=== PATIENT | male | born 1985 | race Caucasian/White ===

== ENCOUNTER 2018-04-19 14:37 | Inpatient (IN) ==
[2018-04-19] MEDS ORDERED: Sod Chloride 0.9% Inj 1,000 ML IV.SIG ONE ×2 (15:53→16:14)
--- NOTE | 2018-04-19 15:58 | ED ---
HPI General Chief complaint: Medical Clearance Stated complaint: Medical Time Seen by Provider: 04/19/18 15:22 Source: old records reviewed Mode of arrival: EMS Limitations: no limitations History of Present Illness HPI narrative: The patient is 32-year-old male that was transferred from retirement here. Important to note that this patient was discharged from our facility 2 days ago and was here under an alias. The alias is Renea Lawson with . The patient does not know why he is here. He does have a right PICC line and a prescription for Cefazolin 2000 mg IV every 6 hours for the next 35 days for infectious endocarditis. Reports that he was given IV Antibiotics in [facility]. Patient has no access to outpatient care. "After reviewing previous records the patient was found to have infective endocarditis and bacteremia secondary to MSSA with elevated troponin and atypical chest pain and suggesting findings of septic emboli in the lungs. He had a CT of the lumbar spine without was suspicious for discitis and ID start him on cefepime. He had a left knee arthrotomy with irrigation and debridement of septic arthritis at which point he was continued on Ancef and Diflucan. He had an elevated troponin secondary to his endocarditis and septic emboli. Elevated LFTs and history of IVDU and had a CT of the pelvis and abdomen on 03/29 that showed areas of low density in the spleen that may have represented lacerations or infarcts. Had an ID consultation and there is extensive documentation in record. Patient denies any fever or chills at this time has tenderness palpation over the left lower leg feels weak and fatigued and has not had anything to eat for several hours. Related Data Home Medications Medication Instructions Recorded Confirmed cefazolin 2,000 mg IV Q6HR 04/19/18 04/19/18 cyclobenzaprine 10 mg PO BID 04/19/18 04/19/18 ferrous sulfate 325 mg PO DAILY 04/19/18 04/19/18 Allergies Allergy/AdvReac Type Severity Reaction Status Date / Time No Known Allergies Allergy Unverified 04/19/18 15:29 Review of Systems ROS: all other systems reviewed are negative Constitutional Reports fatigue, Reports malaise and Reports poor appetite PMFSH Medical History Medical History Bacteremia (Acute) Endocarditis (Acute) IV drug abuse (Acute) Pulmonary embolism (Acute) Septic embolism (Acute) Surgical History Surgical History History of atherectomy (Acute) History of foot surgery (Acute) Family History Family History Other No significant family history Social History Social History Substance History: Active Abuse Second Hand Smoke Exposure: Yes Smoking Status: Current every day smoker Tobacco Type: Cigarettes How Often Do You Have a Drink Containing Alcohol: Never Recent Travel in [facility] within the Last 8 Weeks: No Recent Out of Country Travel within the Last 8 Weeks: No Substance Abuse Detail Opiates: Substance Use Status: Active Route Used Substance Abuse: Intravenously Immunization History Tetanus Immunization: Unsure Hx Influenza Vaccine This Season: No Exam Narrative Exam Narrative: GENERAL: Alert and oriented in no distress appears cachectic SKIN: Focused skin assessment warm/dry. Incision on left lateral knee area appears clean dry and intact. Xeroform was in place and was changed. HEAD: Atraumatic. Normocephalic. Bitemporal wasting EYES: Pupils equal and round. No scleral icterus. No injection or drainage. ENT: No nasal bleeding or discharge. Mucous membranes pink and moist. NECK: Trachea midline. No JVD. CARDIOVASCULAR: Tachycardia. No murmur appreciated. RESPIRATORY: No accessory muscle use. Clear to auscultation. Breath sounds equal bilaterally. GASTROINTESTINAL: Abdomen soft, non-tender, nondistended. Hepatic and splenic margins not palpable. MUSCULOSKELETAL: No obvious deformities. No clubbing. No cyanosis. No edema. NEUROLOGICAL: Awake and alert. No obvious cranial nerve deficits. Motor grossly within normal limits. Normal speech. PSYCHIATRIC: Appropriate mood and affect; insight and judgment normal. Course Hospital Course: pt with elevated WBC 18K from 14K from yesterday. We restarted his Cefipime IV here in the ED and admitted for continuation as well as possible placement. Not appearing toxic. Tachycardia did improve markedly with fluids. Initial Documented Vital Signs Temperature 97.7 F 04/19/18 15:29 Pulse Rate 112 H 04/19/18 15:29 Respiratory Rate 19 04/19/18 15:29 Blood Pressure 125/85 04/19/18 15:29 Pulse Oximetry 94 L 04/19/18 15:29 Last Documented Vital Signs Temperature 98.5 F 04/20/18 04:00 Pulse Rate 109 H 04/20/18 04:00 Respiratory Rate 21 04/20/18 04:00 Blood Pressure 134/91 H 04/20/18 04:00 Pulse Oximetry 98 04/20/18 04:00 Medical Decision Making MDM Narrative Medical Screen Exam Complete: Yes Emergency Medical Condition: Yes Lab Data Lab results reviewed: Yes I reviewed the patient's lab results. Result diagrams: 04/19/18 16:00 04/19/18 16:00 Lab Results 04/19/18 04/19/18 04/19/18 Range/Units 16:00 16:00 16:00 WBC 18.3 H (4.0-11.0) th/mm3 RBC 3.01 L (4.50-5.90) mil/mm3 Hgb 7.9 L (13.0-17.0) gm/dL Hct 24.3 L (39.0-51.0) % MCV 80.9 (80.0-100.0) fL MCH 26.3 L (27.0-34.0) pg MCHC 32.5 (32.0-36.0) % RDW 16.0 (11.6-17.2) % Plt Count 389 (150-450) th/mm3 MPV 6.2 L (7.0-11.0) fL Neut % (Auto) 84.1 H (16.0-70.0) % Lymph % (Auto) 10.1 (9.0-44.0) % [place] % (Auto) 5.1 (0.0-8.0) % Eos % (Auto) 0.4 (0.0-4.0) % Baso % (Auto) 0.3 (0.0-2.0) % Neut # (Auto) 15.4 H (1.8-7.7) th/mm3 Lymph # (Auto) 1.9 (1.0-4.8) th/mm3 [place] # (Auto) 0.9 (0.0-0.9) th/mm3 Eos # (Auto) 0.1 (0.0-0.4) th/mm3 Baso # (Auto) 0.1 (0.0-0.2) th/mm3 WBC Differential . Differential Comment Auto diff final PT 11.7 H (9.8-11.6) sec INR 1.2 Ratio APTT 25.7 (24.3-30.1) sec Sodium 132 L (136-145) meq/L Potassium 4.0 (3.5-5.1) meq/L Chloride 98 (98-107) meq/L Carbon Dioxide 26.1 (21.0-32.0) meq/L Anion Gap 8 (5-15) meq/L BUN 23 H (7-18) mg/dL Creatinine 0.86 (0.60-1.30) mg/dL Estimated GFR Greater than 89 (>89) mL/min Random Glucose 86 (74-106) mg/dL Lactic Acid (0.4-2.0) mmol/L Calcium 8.5 (8.5-10.1) mg/dL Troponin I (0.02-0.05) ng/mL 04/19/18 04/19/18 Range/Units 16:00 16:36 WBC (4.0-11.0) th/mm3 RBC (4.50-5.90) mil/mm3 Hgb (13.0-17.0) gm/dL Hct (39.0-51.0) % MCV (80.0-100.0) fL MCH (27.0-34.0) pg MCHC (32.0-36.0) % RDW (11.6-17.2) % Plt Count (150-450) th/mm3 MPV (7.0-11.0) fL Neut % (Auto) (16.0-70.0) % Lymph % (Auto) (9.0-44.0) % [place] % (Auto) (0.0-8.0) % Eos % (Auto) (0.0-4.0) % Baso % (Auto) (0.0-2.0) % Neut # (Auto) (1.8-7.7) th/mm3 Lymph # (Auto) (1.0-4.8) th/mm3 [place] # (Auto) (0.0-0.9) th/mm3 Eos # (Auto) (0.0-0.4) th/mm3 Baso # (Auto) (0.0-0.2) th/mm3 WBC Differential Differential Comment PT (9.8-11.6) sec INR Ratio APTT (24.3-30.1) sec Sodium (136-145) meq/L Potassium (3.5-5.1) meq/L Chloride (98-107) meq/L Carbon Dioxide (21.0-32.0) meq/L Anion Gap (5-15) meq/L BUN (7-18) mg/dL Creatinine (0.60-1.30) mg/dL Estimated GFR (>89) mL/min Random Glucose (74-106) mg/dL Lactic Acid 1.1 (0.4-2.0) mmol/L Calcium (8.5-10.1) mg/dL Troponin I 0.03 (0.02-0.05) ng/mL ECG Data EKG Prior to Arrival: No Attestation: I personally reviewed and interpreted this ECG as follows: Prior ECG tracings: available for review Interpretation: Sinus tachycardia with a heart rate of 110. Short [place] interval. Nonspecific ST-T wave abnormalities. 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
[2018-04-19 16:42] LABS: Baso # (Auto) 0.1 th/mm3 (0.0-0.2); Baso % (Auto) 0.3 % (0.0-2.0); Eos # (Auto) 0.1 th/mm3 (0.0-0.4); Eos % (Auto) 0.4 % (0.0-4.0); Hematocrit 24.3 % (39.0-51.0); Hemoglobin 7.9 gm/dL (13.0-17.0); Lymph # (Auto) 1.9 th/mm3 (1.0-4.8); Lymph % (Auto) 10.1 % (9.0-44.0); Mean Corpuscular HGB Conc 32.5 % (32.0-36.0); Mean Corpuscular Hemoglobin 26.3 pg (27.0-34.0); Mean Corpuscular Volume 80.9 fL (80.0-100.0); Mean Platelet Volume 6.2 fL (7.0-11.0); Mono # (Auto) 0.9 th/mm3 (0.0-0.9); Mono % (Auto) 5.1 % (0.0-8.0); Neut # (Auto) 15.4 th/mm3 (1.8-7.7); Neut % (Auto) 84.1 % (16.0-70.0); Platelet Count 389 th/mm3 (150-450); Red Blood Count 3.01 mil/mm3 (4.50-5.90); White Blood Count 18.3 th/mm3 (4.0-11.0)
[2018-04-19 16:49] LABS: Activated Partial Thrombo Time 25.7 sec (24.3-30.1); Anion Gap 8 meq/L (5-15); Blood Urea Nitrogen 23 mg/dL (7-18); Calcium 8.5 mg/dL (8.5-10.1); Carbon Dioxide 26.1 meq/L (21.0-32.0); Chloride 98 meq/L (98-107); Glomerular Filtration Rate Greater Than 89 mL/min (>89); Glucose,Random 86 mg/dL (74-106); INR 1.2 Ratio; Prothrombin Time 11.7 sec (9.8-11.6); Sodium 132 meq/L (136-145)
[2018-04-19] MEDS ORDERED: ceFAZolin 2 GM Premix Inj 2 GM/50 ML PIGGYBACK IV.SIG ONE (17:48)
[2018-04-19] MEDS ORDERED: ceFAZolin Inj 2,000 MG in Sodium Chlor 0.9% Inj 100 ML IV.SIG ONE (19:00)
--- NOTE | 2018-04-19 22:32 | P.HPIM ---
History of Present Illness Service: [facility] Hospitalist . Primary Care Physician: UNKNOWN Chief Complaint: endocarditis History of Present Illness: Mr. Garcia is 32-year-old male that was transferred from halfway to the ED with recent admission 03/29/18 - 04/17/18 for infective endocarditis, bacteremia secondary to MSSA, septic emboli in lungs, and splenic infarcts . The patient was here under an alias: Renea Lawson with . He had a left knee arthrotomy with irrigation and debridement of septic arthritis during prior hospitalization. Patient denies any fever or chills at the time of my visit but complains of pain over left knee and ankle. Pain is worse with movement and unrelieved by Tramadol given to the patient at the counts include 234 beds at the [facility]. He also reports chronic chest pain that has not changed since last admission. He is admitted at this time for sepsis with known source of infection - endocarditis and worsening leukocytosis with left shift and tachycardia. The patient has no access to primary care as he has just been released from halfway. Inpatient Certification: I certify that the inpatient services were ordered in accordance with Medicare regulations governing the order. This includes certification that hospital inpatient services are reasonable and necessary and in the case of services not specified as inpatient-only under 42 CFR 419.22(n), that they are appropriately provided as inpatient services in accordance to with the 2-midnight benchmark under 43 CFR 412.3(e) Estimated Total Length of Stay (Days): 2 Plans for Post Hospital Care: Not yet determined Review of Systems All other systems reviewed negative except as stated in HPI [facility] - History History Provided By: Patient - Medical History Medical History: Medical History (Last Updated 04/20/18 @ 01:06 by ELAINE Rosales) Bacteremia Endocarditis IV drug abuse Pulmonary embolism Septic embolism - Surgical History Surgical History: Surgical History (Last Updated 04/20/18 @ 01:08 by ELAINE Rosales) History of atherectomy History of foot surgery - Family History Family History: Family History (Last Updated 04/20/18 @ 01:15 by ELAINE Rosales) Other No significant family history - Tobacco History Second Hand Smoke Exposure: Yes Tobacco Use In Past 30 Days: Yes Smoking Status: Current every day smoker Tobacco Type: Cigarettes - Alcohol History How Often Do You Have a Drink Containing Alcohol: Never - Substance Use History Substance History: Active Abuse - Substance Use Type Opiates Status: Active Route Used: Intravenously - Travel History Recent Travel in the [place] Within the Last 8 Weeks: No Recent Travel Out of the Country Within the Last 8 Weeks: No - Immunization History Tetanus Immunization: Unsure Hx Influenza Vaccine This Season: No Medications and Allergies Active Medications: Active Medications Hydrocodone Bitart/Acetaminophen ([place] 5/325) 1 tab PO ONCE ONE Stop: 04/19/18 22:30 Cyclobenzaprine HCl (Flexeril) 10 mg PO BID [facility] Ferrous Sulfate (Ferosul) 325 mg PO DAILY [facility]ON[facility] Cefazolin Sodium 2,000 mg/ (Sodium Chloride) 100 mls @ 200 mls/hr IV.SIG Q6H [facility] Sodium Chloride (Ns Flush) 2 ml IV.FLUSH BID LEONIDES Sodium Chloride (Ns Flush) 2 ml IV.FLUSH PRN PRN PRN Reason: FLUSH AFTER USING IV ACCESS Allergies Allergy/AdvReac Type Severity Reaction Status Date / Time No Known Allergies Allergy Unverified 04/19/18 15:29 Home Medications Medication Instructions Recorded Confirmed Type cefazolin 2,000 mg IV Q6HR 04/19/18 04/19/18 History cyclobenzaprine 10 mg PO BID 04/19/18 04/19/18 History ferrous sulfate 325 mg PO DAILY 04/19/18 04/19/18 History Exam Vital signs: Vital Signs 04/19/18 15:29 04/19/18 19:57 Temperature 97.7 F 99.1 F Pulse Rate 112 H 121 H Respiratory Rate 19 19 Blood Pressure 125/85 127/79 Pulse Oximetry 94 L 99 Intake & Output 04/19/18 04/19/18 04/20/18 06:59 18:59 06:59 Intake Total 1999 Balance 1999 Weight 52.163 kg Intake: IV 1999 NS Inj 1,000 ML @ Wide Open IV. 1999 SIG BOLUS ONE Rx#:[id number] Narrative: GENERAL: This is a frail, weak, chronically ill-appearing male patient, complaining of left leg pain. SKIN: No rashes, ecchymoses or lesions. Cool and dry. HEAD: Atraumatic. Normocephalic. EYES: No scleral icterus. No injection or drainage. ENT: Nose without bleeding, purulent drainage. NECK: Trachea midline. No JVD. CARDIOVASCULAR: Regular rate and rhythm without murmurs, gallops, or rubs. RESPIRATORY: Clear to auscultation. Breath sounds equal bilaterally. No wheezes , rales, or rhonchi. GASTROINTESTINAL: Abdomen soft, non-tender, nondistended. No guarding. MUSCULOSKELETAL: Left knee tender to palpation, left ankle with 2+ pitting edema. NEUROLOGICAL: Awake and alert. Motor and sensory grossly within normal limits. Normal speech. . Results - Labs CBC & Chem 7: 04/19/18 16:00 04/19/18 16:00 Labs: Short CBC 04/19/18 Range/Units 16:00 WBC 18.3 H (4.0-11.0) th/mm3 Hgb 7.9 L (13.0-17.0) gm/dL Hct 24.3 L (39.0-51.0) % Plt Count 389 (150-450) th/mm3 BMP 04/19/18 16:00 Sodium 132 L Potassium 4.0 Chloride 98 Carbon Dioxide 26.1 BUN 23 H Creatinine 0.86 Calcium 8.5 Cardiac Enzymes 04/19/18 Range/Units 16:36 Troponin I 0.03 (0.02-0.05) ng/mL Caprini VTE Risk Assessment Caprini VTE Risk Assessment: Moderate/High Risk (score >= 2) Caprini Risk Assessment Model: Point Value = 1 Point Value = 2 Point Value = 3 Point Value = 5 Age 41-60 Minor surgery BMI > 25 kg/m2 Swollen legs Varicose veins or History of unexplained or recurrent spontaneous Oral contraceptives or hormone replacement Sepsis (< 1 month) Serious lung disease, including pneumonia (< 1 month) Abnormal pulmonary function Acute myocardial infarction Congestive heart failure (< 1 month) History of inflammatory bowel disease Medical patient at bed rest Age 61-74 Arthroscopic surgery Major open surgery (> 45 min) Laparoscopic surgery (> 45 min) Malignancy Confined to bed (> 72 hours) Immobilizing plaster cast Central venous access Age >= 75 History of VTE Family history of VTE Factor V Leiden Prothrombin [id number] Lupus anticoagulant Anticardiolipin antibodies Elevated serum homocysteine Heparin-induced thrombocytopenia Other congenital or acquired thrombophilia Stroke (< 1 month) Elective arthroplasty Hip, pelvis, or leg fracture Acute spinal cord injury (< 1 month) Prophylaxis Regimen: Total Risk Factor Score Risk Level Prophylaxis Regimen 0-1 Low Early ambulation 2 Moderate Order ONE of the following: *Sequential Compression Device (SCD) *Heparin 5000 units SQ BID 3-4 Higher Order ONE of the following medications: *Heparin 5000 units SQ TID *Enoxaparin/Lovenox 40 mg SQ daily (WT < 150 kg, CrCl > 30 mL/min) *Enoxaparin/Lovenox 30 mg SQ daily (WT < 150 kg, CrCl > 10-29 mL/min) *Enoxaparin/Lovenox 30 mg SQ BID (WT < 150 kg, CrCl > 30 mL/min) AND/OR *Sequential Compression Device (SCD) 5 or more Highest Order ONE of the following medications: *Heparin 5000 units SQ TID (Preferred with Epidurals) *Enoxaparin/Lovenox 40 mg SQ daily (WT < 150 kg, CrCl > 30 mL/min) *Enoxaparin/Lovenox 30 mg SQ daily (WT < 150 kg, CrCl > 10-29 mL/min) *Enoxaparin/Lovenox 30 mg SQ BID (WT < 150 kg, CrCl > 30 mL/min) AND *Sequential Compression Device (SCD) Assessment and Plan - Plan Mr. Garcia is 32-year-old male that was transferred from halfway to the ED with recent admission 03/29/18 - 04/17/18 for infective endocarditis, bacteremia secondary to MSSA, septic emboli in lungs, and splenic infarcts . The patient was here under an alias: Renea Lawson with . He had a left knee arthrotomy with irrigation and debridement of septic arthritis during prior hospitalization. Patient denies any fever or chills at the time of my visit but complains of pain over left knee and ankle. Pain is worse with movement and unrelieved by Tramadol given to the patient at the counts include [facility] beds at the [facility]. He also reports chronic chest pain that has not changed since last admission. He is admitted at this time for sepsis with known source of infection - endocarditis and worsening leukocytosis with left shift and tachycardia. The patient has no access to primary care as he has just been released from halfway. Sepsis, suspect secondary to endocarditis - Patient reports he was not given IV antibiotics all day yesterday - Resume Ancef 2 g IV every 6 hours - Consult infectious disease -appreciate assistance - Await blood culture results - IV fluid hydration with normal saline at 125 cc an hour Anemia, appears chronic - Resume home iron - Repeat labs in a.m. and follow results - Transfuse if needed Hyponatremia - Na+ 132 - NS at 125 cc/hr - monitor sodium levels Left knee pain - Analgesia: [place] 5/325 mg p.o. q4h as needed - caution with narcotics given hx of IVDU - recent left knee septic arthritis - continue ancef; ID consultation - consult ortho if needed DVT prophylaxis - Heparin 5000 units subcu every 12 hours Discussed Condition With: Dr. Marin and patient
[2018-04-20] MEDS ORDERED: CEFAZOLIN 2000 MG IV.SIG SCH
[2018-04-20] MEDS: SODIUM CHLORIDE IV.SIG SCH ×8 (00:23→18:26)
[2018-04-20] MEDS: CEFAZOLIN IV.SIG SCH ×8 (00:23→18:26)
[2018-04-20] MEDS: Sod Chloride 0.9% Inj 1,000 ML IV.CONT SCH ×4 (00:41→23:28)
[2018-04-20] MEDS: Heparin - SQ 10,000 UNITS/ML Vial SQ SCH ×2 (10:57→20:38)
[2018-04-20] MEDS: Ferrous Sulfate 325 MG Tablet PO SCH (10:58)
--- NOTE | 2018-04-20 13:11 | P.PNIM ---
Subjective Interval history: No overnight events, no fever or chills, still tachycardic. Still complaining of severe left knee pain, no nausea, vomiting. There is chest pain with deep inspiration. Physical Exam Vital signs: Vital Signs 04/19/18 15:29 04/19/18 19:57 04/20/18 01:23 Temperature 97.7 F 99.1 F Pulse Rate 112 H 121 H Respiratory Rate 19 19 19 Blood Pressure 125/85 127/79 Pulse Oximetry 94 L 99 04/20/18 01:43 04/20/18 04:00 04/20/18 07:24 Temperature 99.1 F 98.5 F 97.9 F Pulse Rate 121 H 109 H 111 H Respiratory Rate 19 21 12 Blood Pressure 127/79 134/91 H 149/86 H Pulse Oximetry 98 99 04/20/18 12:18 Temperature 98.5 F Pulse Rate 114 H Respiratory Rate 20 Blood Pressure 136/77 Pulse Oximetry 99 Intake & Output 04/19/18 04/20/18 04/20/18 18:59 06:59 18:59 Intake Total 1999 1070 / 1070 700 / 700 Output Total 500 / 500 Balance 1999 570 / 570 700 / 700 Weight 52.163 kg 52.163 kg Intake: IV 1999 620 / 620 700 / 700 NS Inj 1,000 ML @ 125 mls/hr IV 400 / 400 600 / 600 .CONT .Q8H [facility] Rx#:[id number] NS Inj 1,000 ML @ Wide Open IV. 1999 SIG BOLUS ONE Rx#:[id number] Ancef Inj 2,000 MG In NS Inj 80 220 / 220 100 / 100 ML @ 200 mls/hr IV.SIG Q6H [facility] Rx#:[id number] Oral 450 / 450 Output: Urine 500 / 500 Other: # Voids 1 Weight On Admission 52.163 kg Narrative: Not in distress, well-nourished, looks stated age PERRL, pink conjunctiva without injection, anicteric Nose without bleeding Tachycardic, regular rhythm, positive for 3/6 murmur. Clear to auscultation and symmetric bilaterally, normal respiratory effort. Respirophasic chest tenderness. Normal bowel sounds, soft, non-tender, nondistended, no guarding. Extremities without clubbing, cyanosis, 2+ left ankle edema. Left knee tender to palpation, dressings in place. No rash of generalized distribution. Skin is warm and dry. AAO x3, no cranial nerve deficits, moves all 4 extremities, no focal neurologic deficits Results - Labs CBC & Chem 7: 04/19/18 16:00 04/19/18 16:00 Laboratory Results - last 24 hr 04/19/18 04/19/18 04/19/18 16:00 16:00 16:00 WBC 18.3 H RBC 3.01 L Hgb 7.9 L Hct 24.3 L MCV 80.9 MCH 26.3 L MCHC 32.5 RDW 16.0 Plt Count 389 MPV 6.2 L Neut % (Auto) 84.1 H Lymph % (Auto) 10.1 [place] % (Auto) 5.1 Eos % (Auto) 0.4 Baso % (Auto) 0.3 Neut # (Auto) 15.4 H Lymph # (Auto) 1.9 [place] # (Auto) 0.9 Eos # (Auto) 0.1 Baso # (Auto) 0.1 WBC Differential . Differential Comment Auto diff final PT 11.7 H INR 1.2 APTT 25.7 Sodium 132 L Potassium 4.0 Chloride 98 Carbon Dioxide 26.1 Anion Gap 8 BUN 23 H Creatinine 0.86 Estimated GFR Greater than 89 Random Glucose 86 Lactic Acid Calcium 8.5 Troponin I 04/19/18 04/19/18 16:00 16:36 WBC RBC Hgb Hct MCV MCH MCHC RDW Plt Count MPV Neut % (Auto) Lymph % (Auto) [place] % (Auto) Eos % (Auto) Baso % (Auto) Neut # (Auto) Lymph # (Auto) [place] # (Auto) Eos # (Auto) Baso # (Auto) WBC Differential Differential Comment PT INR APTT Sodium Potassium Chloride Carbon Dioxide Anion Gap BUN Creatinine Estimated GFR Random Glucose Lactic Acid 1.1 Calcium Troponin I 0.03 Microbiology 04/19/18 15:50 Blood - Peripheral Aerobic Blood Culture - Preliminary No growth in 1 day 04/19/18 15:50 Blood - Peripheral Anaerobic Blood Culture - Preliminary No growth in 1 day 04/19/18 16:00 Blood - Peripheral Aerobic Blood Culture - Preliminary No growth in 1 day 04/19/18 16:00 Blood - Peripheral Anaerobic Blood Culture - Preliminary No growth in 1 day Assessment and Plan - Plan Mr. Garcia is 32-year-old male that was transferred from residential to the ED with recent admission 03/29/18 - 04/17/18 for infective endocarditis, bacteremia secondary to MSSA, septic emboli in lungs, and splenic infarcts. Patient was discharged to the residential 04/17/2018. He was previously on alias: Archanaharpreet ReneaCarmen perez#[phone]. However he was discharged from the residential yesterday. His antibiotics were continued at the residential until yesterday when he misses antibiotics. He went back to [place] because he does not have a primary care physician to continue his treatment. Sepsis, secondary to infective endocarditis, with possible septic emboli to the lungs and spleen with splenic infarct -Sepsis based on leukocytosis, tachycardia and definite source of infection patient needs antibiotic for 1 day, resume Ancef per infectious disease 2 g every 6 hours. Consult infectious disease. Repeat blood cultures pending. Continue IVF. Patient has pleuritic chest pain, [place] as needed, no intravenous antibiotics. He is supposed to finish antibiotics of the May 12, 2018. Patient previously had vancomycin related fever. Anemia, appears chronic - Resume home iron, monitor intermittently. Transfuse as needed. Left knee septic arthritis-status post left knee arthrotomy with irrigation debridement during previous admission, antibiotics as above. Pain control as above. Left lower extremity edema previously worked up, negative for DVT. IV drug use, opiate dependency-avoid intravenous narcotics, consult Hyponatremia - Na+ 132, continue normal saline, recheck BMP tomorrow. DVT prophylaxis - Heparin 5000 units subcu every 12 hours
[2018-04-20] MEDS ORDERED: Bisacodyl 10 MG Supp RECTAL PRN (13:27)
[2018-04-20 14:41] LABS: Anion Gap 9 meq/L (5-15); Blood Urea Nitrogen 16 mg/dL (7-18); Carbon Dioxide 25.6 meq/L (21.0-32.0); Chloride 100 meq/L (98-107); Glomerular Filtration Rate Greater Than 89 mL/min (>89); Glucose,Random 118 mg/dL (74-106); Potassium 3.4 meq/L (3.5-5.1); Sodium 135 meq/L (136-145)
--- NOTE | 2018-04-20 15:02 | P.CONID ---
History of Present Illness Service: Infectious Disease Consult date: 04/20/18 Requesting Physician: Natalya Pena Reason for Consult: Evaluation and Mment of septic arthritis and endocarditis. Primary Care Provider: UNKNOWN Chief Complaint: endocarditis History of Present Illness: Mr. Garcia is a 32-year-old male with past medical history significant for MSSA endocarditis for which she was admitted recently from March 29, 2018 to April 17, 2018. Patient was noted to have septic emboli to lungs as well as the spleen with infarcts. Patient was admitted under a different name Renea Lawson during that admission. He had a left knee arthrotomy with irrigation and debridement of the septic arthritis during his hospitalization. Once his acute sepsis was resolved and patient responded to Ancef IV patient was discharged to the skilled nursing system. Patient reports that on April 18, 2018 he was released from the skilled nursing system and that currently does not have any primary care physician and therefore presented to the emergency department for completion of his IV antibiotic therapy. Upon questioning patient reports that he has pain with deep inspiration bilaterally. He also reports occasional abdominal pain. He reports knee pain at the surgical site as well. He denies any fevers or chills. At the time of my evaluation patient is in the emergency department in the observation rooms. Infectious diseases consulted for evaluation and management of MSSA endocarditis as well as septic arthritis of knee. Review of Systems other (Poor historian) PMFSH - History History Provided By: Patient - Medical History Medical History: Medical History (Last Reviewed 04/20/18 @ 06:58 by Miguel Rutledge DO) Bacteremia Endocarditis IV drug abuse Pulmonary embolism Septic embolism - Surgical History Surgical History: Surgical History (Last Reviewed 04/20/18 @ 06:58 by Miguel Rutledge DO) History of atherectomy History of foot surgery - Family History Family History: Family History (Last Reviewed 04/20/18 @ 06:58 by Miguel Rutledge DO) Other No significant family history - Tobacco History Second Hand Smoke Exposure: Yes Tobacco Use In Past 30 Days: Yes Smoking Status: Current every day smoker Tobacco Type: Cigarettes - Alcohol History How Often Do You Have a Drink Containing Alcohol: Never - Substance Use History Substance History: Active Abuse - Substance Use Type Opiates Status: Active Route Used: Intravenously Reason for Use: Calm Down, Feels Good, Get High, Stay Awake - Travel History Recent Travel in the [place] Within the Last 8 Weeks: No Recent Travel Out of the Country Within the Last 8 Weeks: No - Immunization History Tetanus Immunization: Unsure Hx Influenza Vaccine This Season: No Medications and Allergies Active Medications: Active Medications Hydrocodone Bitart/Acetaminophen ([place] 5/325) 1 tab PO Q4H PRN PRN Reason: pain > 4-6 Hydrocodone Bitart/Acetaminophen ([place] 5/325) 2 tab PO Q6H PRN PRN Reason: pain 7-10 Last Admin: 04/20/18 14:34 Dose: 2 tab Al Hydroxide/Mg Hydroxide (Milk Of Magnesia Liq) 30 ml PO Q12H PRN PRN Reason: Mild Constipation Bisacodyl (Dulcolax Supp) 10 mg RECTAL DAILY PRN PRN Reason: SEVERE CONSITIPATION Cyclobenzaprine HCl (Flexeril) 10 mg PO BID [facility] Last Admin: 04/20/18 10:58 Dose: 10 mg Ferrous Sulfate (Ferosul) 325 mg PO DAILY [facility] Last Admin: 04/20/18 10:58 Dose: 325 mg Heparin Sodium (Porcine) (Heparin Inj) 5,000 units SQ Q12HR [facility] Last Admin: 04/20/18 10:57 Dose: 5,000 units Cefazolin Sodium 2,000 mg/ (Sodium Chloride) 100 mls @ 200 mls/hr IV.SIG Q6H [facility] Last Infusion: 04/20/18 14:32 Dose: Infused Sodium Chloride (Ns Inj) 1,000 mls @ 125 mls/hr IV.CONT .Q8H [facility] Last Admin: 04/20/18 13:54 Dose: 125 mls/hr Lactulose (Lactulose Liq) 30 ml PO DAILY PRN PRN Reason: SEVERE CONSITIPATION Senna/Docusate Sodium ([place]-Colace) 1 tab PO BID [facility] Sennosides (Senokot) 17.2 mg PO Q12H PRN PRN Reason: Moderate Constipation Sodium Chloride (Ns Flush) 2 ml IV.FLUSH BID [facility] Last Admin: 04/20/18 10:58 Dose: 2 ml Sodium Chloride (Ns Flush) 2 ml IV.FLUSH PRN PRN PRN Reason: FLUSH AFTER USING IV ACCESS Allergies Allergy/AdvReac Type Severity Reaction Status Date / Time No Known Allergies Allergy Unverified 04/19/18 15:29 Home Medications Medication Instructions Recorded Confirmed Type cefazolin 2,000 mg IV Q6HR 04/19/18 04/19/18 History cyclobenzaprine 10 mg PO BID 04/19/18 04/19/18 History ferrous sulfate 325 mg PO DAILY 04/19/18 04/19/18 History Exam Vital signs: Vital Signs 04/19/18 15:29 04/19/18 19:57 04/20/18 01:23 Temperature 97.7 F 99.1 F Pulse Rate 112 H 121 H Respiratory Rate 19 19 19 Blood Pressure 125/85 127/79 Pulse Oximetry 94 L 99 04/20/18 01:43 04/20/18 04:00 04/20/18 07:24 Temperature 99.1 F 98.5 F 97.9 F Pulse Rate 121 H 109 H 111 H Respiratory Rate 19 21 12 Blood Pressure 127/79 134/91 H 149/86 H Pulse Oximetry 98 99 04/20/18 12:18 Temperature 98.5 F Pulse Rate 114 H Respiratory Rate 20 Blood Pressure 136/77 Pulse Oximetry 99 Intake & Output 04/19/18 04/20/18 04/20/18 18:59 06:59 18:59 Intake Total 1999 1070 / 1070 1800 / 1800 Output Total 500 / 500 400 / 400 Balance 1999 570 / 570 1400 / 1400 Weight 52.163 kg 52.163 kg Intake: IV 1999 620 / 620 1800 / 1800 NS Inj 1,000 ML @ 125 mls/hr IV 400 / 400 1600 / 1600 .CONT .Q8H [facility] Rx#:[id number] NS Inj 1,000 ML @ Wide Open IV. 1999 SIG BOLUS ONE Rx#:[id number] Ancef Inj 2,000 MG In NS Inj 80 220 / 220 200 / 200 ML @ 200 mls/hr IV.SIG Q6H [facility] Rx#:[id number] Oral 450 / 450 Output: Urine 500 / 500 400 / 400 Other: # Voids 1 Weight On Admission 52.163 kg Narrative: GENERAL: Well-nourished well-developed, not in acute distress SKIN: Cool and dry, no generalized rash HEAD: Atraumatic. Normocephalic. No temporal or scalp tenderness. EYES: Pupils equal round and reactive. Scleral icterus. No injection or drainage. No petechia ENT: Nothing abnormal detected NECK: Trachea midline. Supple, nontender, no meningeal signs. CARDIOVASCULAR: HS audible. RESPIRATORY: Clear to auscultation bilaterally. GASTROINTESTINAL: Abdomen soft nontender. MUSCULOSKELETAL: Extremities without clubbing, cyanosis. Surgical site on the knee with evidence of dehiscence or infection. NEUROLOGICAL: Alert oriented 3. Nonfocal. Psych cooperative IV line sites ok. Results - Labs CBC & Chem 7: 04/19/18 16:00 04/20/18 14:01 Labs: Laboratory Results - last 24 hr 04/19/18 04/19/18 04/19/18 16:00 16:00 16:00 WBC 18.3 H RBC 3.01 L Hgb 7.9 L Hct 24.3 L MCV 80.9 MCH 26.3 L MCHC 32.5 RDW 16.0 Plt Count 389 MPV 6.2 L Neut % (Auto) 84.1 H Lymph % (Auto) 10.1 [place] % (Auto) 5.1 Eos % (Auto) 0.4 Baso % (Auto) 0.3 Neut # (Auto) 15.4 H Lymph # (Auto) 1.9 [place] # (Auto) 0.9 Eos # (Auto) 0.1 Baso # (Auto) 0.1 WBC Differential . Differential Comment Auto diff final PT 11.7 H INR 1.2 APTT 25.7 Sodium 132 L Potassium 4.0 Chloride 98 Carbon Dioxide 26.1 Anion Gap 8 BUN 23 H Creatinine 0.86 Estimated GFR Greater than 89 Random Glucose 86 Lactic Acid Calcium 8.5 Troponin I 04/19/18 04/19/18 04/20/18 16:00 16:36 14:01 WBC RBC Hgb Hct MCV MCH MCHC RDW Plt Count MPV Neut % (Auto) Lymph % (Auto) [place] % (Auto) Eos % (Auto) Baso % (Auto) Neut # (Auto) Lymph # (Auto) [place] # (Auto) Eos # (Auto) Baso # (Auto) WBC Differential Differential Comment PT INR APTT Sodium 135 L Potassium 3.4 L Chloride 100 Carbon Dioxide 25.6 Anion Gap 9 BUN 16 Creatinine 0.74 Estimated GFR Greater than 89 Random Glucose 118 H Lactic Acid 1.1 Calcium 8.0 L Troponin I 0.03 Assessment and Plan - Plan MSSA endocarditis MSSA left knee septic arthritis Was recently in the skilled nursing and discharged in stable has treatment to be completed and has no PCP or insurance History of IV drug abuse Pulmonary septic emboli with history of pleuritic chest pain concern for empyema especially given white count being at 18.6 Splenic infarct with white count having been elevated concern for splenic abscess PICC line in place Recommendations Continue Ancef IV Follow blood cultures CT chest abdomen pelvis to look for evidence of pulmonary or splenic abscesses Follow clinical course Check CRP Check LFTs Check hepatitis panel Discussed with Dr. Pena Discussed with RN Discussed with patient
[2018-04-20] MEDS ORDERED: Diatrizoate Meglum/Diatrizoate Sod Liq 9 ML UDC PO ONE (15:45)
[2018-04-20 16:24] LABS: Albumin 1.7 g/dL (3.4-5.0); C-Reactive Protein 7.09 mg/dL (0.00-0.30)
[2018-04-20 16:26] LABS: Total Protein 6.8 g/dL (6.4-8.2)
[2018-04-20 16:46] LABS: Bacteria,Urine Rare /hpf; Bilirubin,Urine Negative (Negative); Clarity,Urine Clear (Clear); Color,Urine Straw (Yellw/Straw); Glucose,Urine (UA) Negative (Negative); Leukocyte Esterase,Urine Negative (Negative); Mucus,Urine Few /lpf (Occasional); Nitrite,Urine Negative (Negative); Specific Gravity,Urine 1.005 (1.002-1.035)
[2018-04-20 17:18] LABS: Hepatitis A IgM Antibody Nonreactive (Nonreactive); Hepatitits B Surface Antigen Nonreactive (Nonreactive)
--- NOTE | 2018-04-20 19:21 | CT ---
EXAM DATE: 04/20/2018 7:14 PM EDT AGE/SEX: 32 years / Male INDICATIONS: Possible septic embolism, pneumonia. CLINICAL DATA: This is the patient's initial encounter. Patient reports that signs and symptoms have been present for 1 day and indicates a pain score of 0/10. MEDICAL/SURGICAL HISTORY: . Septic Embolism. Pulmonary Embolism. Endocarditis. None. RADIATION DOSE: 5.16 CTDI (mGy) COMPARISON: No prior exams available for comparison. TECHNIQUE: Multiple contiguous axial images were obtained through the chest during bolus infusion of 90 ml Omnipaque 350 (iohexol) nonionic water-soluble contrast as a cumulative dose for multiple exa ms. Images were obtained in suspended respiration using multiple row detector helical technique. U sing automated exposure control and adjustment of the mA and/or kV according to patient size, radiati on dose was kept as low as reasonably achievable to obtain optimal diagnostic quality images. DICOM format image data is available electronically for review and comparison. FINDINGS: Lungs: Multiple cavitary lesions are noted bilaterally which could be consistent with septic emboli or cavitary metastases. Bibasilar atelectasis is noted. No alveolar consolidation is noted. No pulmon miguel edema is noted. Mediastinum: There is good visualization of the great vessels of the middle mediastinum. No evidenc e of mediastinal or hilar adenopathy/mass. Pleurae: Tiny bilateral pleural effusions are noted. Axillae: Unremarkable. Bony Structures: Unremarkable. Miscellaneous: The examination was extended to include the upper abdomen, and both adrenal glands ar e normal in size and configuration. There are wedge-shaped areas of decreased perfusion involving the spleen consistent with possible splenic infarcts. The spleen is enlarged. The liver is also enlarged . CONCLUSION: 1. Multiple cavitary lesions bilaterally which could be consistent with septic emboli or cavitary me tastases. Clinical correlation is recommended. 2. Multiple wedge-shaped areas of decreased perfusion within the spleen consistent with possible spl enic infarcts. 3. Hepatosplenomegaly. 4. Tiny bilateral pleural effusions. 5. Bibasilar atelectasis. Electronically signed by: Dayday Torres MD 04/20/2018 7:19 PM EDT
--- NOTE | 2018-04-20 19:25 | CT ---
EXAM DATE: 04/20/2018 7:15 PM EDT AGE/SEX: 32 years / Male INDICATIONS: Fever, possible abscess. CLINICAL DATA: This is the patient's initial encounter. Patient reports that signs and symptoms have been present for 1 day and indicates a pain score of 0/10. MEDICAL/SURGICAL HISTORY: . Endocarditis. Septic Embolism. Pulmonary Embolism. None. ORAL CONTRAST: Prescribed oral contrast ingested. RADIATION DOSE: 5.16 CTDI (mGy) COMPARISON: No prior exams available for comparison. TECHNIQUE: Multiple contiguous axial images were obtained through the abdomen and pelvis following b olus infusion of 90 ml Omnipaque 350 (iohexol) nonionic water-soluble contrast as a single exam dos e. Prescribed oral contrast ingested. Using automated exposure control and adjustment of the mA and/ or kV according to patient size, radiation dose was kept as low as reasonably achievable to obtain op timal diagnostic quality images. DICOM format image data is available electronically for review and comparison. FINDINGS: Lower Lungs: Tiny bilateral pleural effusions and posterior bibasilar atelectasis are noted. Scattere d cavitary lesions are also noted and are described in detail on the CT of the chest report. Liver: The liver is mildly enlarged. The liver has a homogeneous density without space-occupying lesi on. There is no dilation of the biliary tree. Spleen: Multiple wedge-shaped perfusion defects involving the spleen are noted and are suggestive of probable splenic infarcts. The spleen is enlarged. Pancreas: Unremarkable without mass or calcification. Kidneys: Normal in size and shape. There are peripheral cortical defects involving the kidneys bilat erally suggesting possible renal infarcts. Adrenal Glands: Unremarkable. Aorta: The aorta and proximal iliac vessels are grossly unremarkable without aneurysmal dilation. Bowel/Mesentery: The bowel loops are grossly unremarkable. The cecum and sigmoid colon have a normal configuration. Abdominal Wall: Intact. Retroperitoneum: No evidence of adenopathy in the retrocrural, para-aortic, or deep pelvic regions. Bladder: Contours are smooth. Reproductive Organs: No abnormal masses or calcifications seen. Some free fluid is noted within the cul-de-sac. Inguinal: The inguinal region is unremarkable without evidence of adenopathy. Bony Structures: Unremarkable. CONCLUSION: 1. Multiple wedge-shaped perfusion defects involving the spleen suggestive of probable splenic infar cts. 2. Hepatosplenomegaly. 3. Peripheral cortical defects involving the kidneys bilaterally suggesting possible renal infarcts. 4. Some free fluid within the cul-de-sac. 5. Scattered cavitary lesions within the lungs which are described in detail on the CT of the chest report and may represent septic emboli or cavitary metastases. 6. Tiny bilateral pleural effusions with adjacent bibasilar atelectatic changes. Electronically signed by: Dayday Torres MD 04/20/2018 7:23 PM EDT
[2018-04-20] MEDS: Senna/Docusate Sodium 8.6/50 MG Tablet PO SCH (20:39)
[2018-04-20] MEDS: Diatrizoate Meglum/Diatrizoate Sod Liq 9 ML UDC PO ONE ×2 (20:39→23:27)
[2018-04-21] MEDS: SODIUM CHLORIDE IV.SIG SCH ×8 (00:02→18:52)
[2018-04-21] MEDS: CEFAZOLIN IV.SIG SCH ×8 (00:02→18:52)
--- NOTE | 2018-04-21 00:39 | ECG ---
Date Performed: 04/19/2018 Time Performed: 17:50:38 PTAGE: 32 years EKG: SINUS TACHYCARDIA WITH SHORT SD INTERVAL MODERATE T-WAVE ABNORMALITY, CONSIDER LATERAL ISCH EMIA MODERATE T-WAVE ABNORMALITY, CONSIDER INFERIOR ISCHEMIA ABNORMAL ECG NO PREVIOUS TRACING DOCTOR: Edson Penaloza Interpretating Date/Time 04/21/2018 00:38:02
[2018-04-21 06:25] LABS: Baso # (Auto) 0.1 th/mm3 (0.0-0.2); Baso % (Auto) 0.5 % (0.0-2.0); Eos # (Auto) 0.1 th/mm3 (0.0-0.4); Hematocrit 22.4 % (39.0-51.0); Hemoglobin 7.4 gm/dL (13.0-17.0); Lymph # (Auto) 1.4 th/mm3 (1.0-4.8); Lymph % (Auto) 11.6 % (9.0-44.0); Mean Corpuscular HGB Conc 33.2 % (32.0-36.0); Mean Corpuscular Hemoglobin 26.4 pg (27.0-34.0); Mean Corpuscular Volume 79.5 fL (80.0-100.0); Mean Platelet Volume 6.1 fL (7.0-11.0); Mono # (Auto) 0.5 th/mm3 (0.0-0.9); Neut # (Auto) 10.2 th/mm3 (1.8-7.7); Neut % (Auto) 82.9 % (16.0-70.0); Platelet Count 349 th/mm3 (150-450); Red Blood Count 2.81 mil/mm3 (4.50-5.90); Red Cell Distribution Width 15.5 % (11.6-17.2); White Blood Count 12.3 th/mm3 (4.0-11.0)
[2018-04-21] MEDS: Sod Chloride 0.9% Inj 1,000 ML IV.CONT SCH ×4 (09:48→22:41)
[2018-04-21] MEDS: Senna/Docusate Sodium 8.6/50 MG Tablet PO SCH ×2 (09:50→20:16)
[2018-04-21] MEDS: Heparin - SQ 10,000 UNITS/ML Vial SQ SCH ×2 (09:50→20:15)
[2018-04-21] MEDS: Ferrous Sulfate 325 MG Tablet PO SCH (09:50)
--- NOTE | 2018-04-21 12:14 | P.DIET ---
Nutritional Evaluation Type of nutrition evaluation: initial Nutrition screening: Weight Loss > 10 lbs Objective - Diagnosis Endocarditis - Objective % IBW: 81 (WBJ=514#) Body Weight Used for Calculations: IBW (64.5kg) Energy Needs - Lower Range (kCal/kg): 25 Energy Needs - Upper Range (kCal/kg): 30 Lower Limit kCal/kg (kCals): 1,613 Upper Limit kCal/kg (kCals): 1,935 Lower Limit Protein Factor (Grams per Kg): 1.1 Upper Limit Protein Factor (Grams per Kg): 1.3 Lower Protein Needs (Protein): 71 Upper Protein Needs (Protein): 84 Dietitian Reviewed in Medical Record: Current diet, Curent medications, Intake & Output, Labs, Medical history Diet Order: Heart Healthy Oral Diet Intake Amount: Good 75-90% Assessment Assessment: Pt admitted for endocarditis. He was just released from skilled nursing a few days ago. Noted wt loss since previous admissions. He is currently at 81% of his IBW. On a heart healthy diet. I will add Enlive BID to his meals for extra nutrition. He 's been eating well so far. Will continue to monitor. Recommendations: 1. Continue Heart Healthy diet. 2. Enlive BID. Dietitian to Monitor: Lab values, Supplement acceptance, Intake & Output, Diet tolerance, Weight change, PO Intake, Medical course
--- NOTE | 2018-04-21 14:03 | P.PNIM ---
Subjective Interval history: Patient reports that pleuritic chest pain continues. Denies any nausea or vomiting. Physical Exam Vital signs: Vital Signs 04/20/18 15:17 04/20/18 17:15 04/20/18 20:00 Temperature 98.1 F 98.2 F 97.4 F L Pulse Rate 127 H 113 H 107 H Respiratory Rate 20 16 19 Blood Pressure 135/87 122/85 103/57 L Pulse Oximetry 100 98 96 04/21/18 00:00 04/21/18 04:00 04/21/18 07:51 Temperature 98.1 F 97.8 F Pulse Rate 107 H 109 H 107 H Respiratory Rate 18 21 Blood Pressure 128/80 101/53 L Pulse Oximetry 97 98 04/21/18 08:00 04/21/18 12:00 Temperature 98.3 F 98.2 F Pulse Rate 107 H 109 H Respiratory Rate 17 17 Blood Pressure 135/83 129/77 Pulse Oximetry 98 98 Intake & Output 04/20/18 04/21/18 04/21/18 18:59 06:59 18:59 Intake Total 1900 / 1900 1680 / 1680 1000 / 1000 Output Total 400 / 400 700 / 700 Balance 1500 / 1500 980 / 980 1000 / 1000 Weight 52 kg Intake: IV 1900 / 1900 1200 / 1200 1000 / 1000 NS Inj 1,000 ML @ 125 mls/hr IV 1600 / 1600 1000 / 1000 1000 / 1000 .CONT .Q8H [facility] Rx#:[id number] Ancef Inj 2,000 MG In NS Inj 80 300 / 300 200 / 200 ML @ 200 mls/hr IV.SIG Q6H [facility] Rx#:[id number] Oral 480 / 480 Output: Urine 400 / 400 700 / 700 Other: Date of Last Bowel Movement 04/20/18 04/20/18 04/20/18 Narrative: GENERAL: Patient lying in bed. Appears comfortable. Eating lunch. SKIN: Warm and dry. HEAD: Normocephalic. EYES: No scleral icterus. No injection or drainage. NECK: Supple, trachea midline. No JVD. CARDIOVASCULAR: Regular rate and rhythm without murmurs, gallops, or rubs. Systolic ejection murmur. RESPIRATORY: Breath sounds equal bilaterally. No accessory muscle use. GASTROINTESTINAL: Abdomen soft, non-tender, nondistended. MUSCULOSKELETAL: No cyanosis. +1 left ankle edema. BACK: Nontender without obvious deformity. No CVA tenderness. Results - Labs CBC & Chem 7: 04/21/18 06:00 04/20/18 14:01 Laboratory Results - last 24 hr 04/20/18 04/20/18 04/20/18 14:01 15:35 15:35 WBC RBC Hgb Hct MCV MCH MCHC RDW Plt Count MPV Neut % (Auto) Lymph % (Auto) [place] % (Auto) Eos % (Auto) Baso % (Auto) Neut # (Auto) Lymph # (Auto) [place] # (Auto) Eos # (Auto) Baso # (Auto) WBC Differential Differential Comment Sodium 135 L Potassium 3.4 L Chloride 100 Carbon Dioxide 25.6 Anion Gap 9 BUN 16 Creatinine 0.74 Estimated GFR Greater than 89 Random Glucose 118 H Calcium 8.0 L Total Bilirubin 0.1 L Direct Bilirubin 0.1 Indirect Bilirubin 0.0 AST 29 ALT 14 Alkaline Phosphatase 91 C-Reactive Protein 7.09 H Total Protein 6.8 D Albumin 1.7 L Urine Color Urine Clarity Urine pH Ur Specific [place] Urine Protein Urine Glucose (UA) Urine Ketones Urine Occult Blood Urine Nitrate Urine Bilirubin Urine Urobilinogen Ur Leukocyte Esterase Urine RBC Urine WBC Urine Bacteria Urine Mucus Micro UA Comment Ur Microscopic Review Urine Culture Comments Hepatitis A IgM Ab Nonreactive Hep Bs Antigen Nonreactive Hep B Core IgM Ab Nonreactive Hep C IgG Ab Reactive H 04/20/18 04/21/18 16:20 06:00 WBC 12.3 H RBC 2.81 L Hgb 7.4 L Hct 22.4 L MCV 79.5 L MCH 26.4 L MCHC 33.2 RDW 15.5 Plt Count 349 MPV 6.1 L Neut % (Auto) 82.9 H Lymph % (Auto) 11.6 [place] % (Auto) 4.0 Eos % (Auto) 1.0 Baso % (Auto) 0.5 Neut # (Auto) 10.2 H Lymph # (Auto) 1.4 [place] # (Auto) 0.5 Eos # (Auto) 0.1 Baso # (Auto) 0.1 WBC Differential . Differential Comment Auto diff final Sodium Potassium Chloride Carbon Dioxide Anion Gap BUN Creatinine Estimated GFR Random Glucose Calcium Total Bilirubin Direct Bilirubin Indirect Bilirubin AST ALT Alkaline Phosphatase C-Reactive Protein Total Protein Albumin Urine Color Straw Urine Clarity Clear Urine pH 6.0 Ur Specific [place] 1.005 Urine Protein Negative Urine Glucose (UA) Negative Urine Ketones Negative Urine Occult Blood Small H Urine Nitrate Negative Urine Bilirubin Negative Urine Urobilinogen Less than 2 Ur Leukocyte Esterase Negative Urine RBC 2 Urine WBC 2 Urine Bacteria Rare H Urine Mucus Few H Micro UA Comment Culture not ind Ur Microscopic Review Not Reportable Urine Culture Comments Culture not ind Hepatitis A IgM Ab Hep Bs Antigen Hep B Core IgM Ab Hep C IgG Ab Microbiology 04/19/18 16:00 Blood - Peripheral Aerobic Blood Culture - Preliminary No growth in 2 days 04/19/18 16:00 Blood - Peripheral Anaerobic Blood Culture - Preliminary gram positive cocci 04/19/18 15:50 Blood - Peripheral Aerobic Blood Culture - Preliminary No growth in 2 days 04/19/18 15:50 Blood - Peripheral Anaerobic Blood Culture - Preliminary No growth in 2 days - Imaging Impressions Abdomen/Pelvis CT 04/20/18 00:00 CONCLUSION: 1. Multiple wedge-shaped perfusion defects involving the spleen suggestive of probable splenic infarcts. 2. Hepatosplenomegaly. 3. Peripheral cortical defects involving the kidneys bilaterally suggesting possible renal infarcts. 4. Some free fluid within the cul-de-sac. 5. Scattered cavitary lesions within the lungs which are described in detail on the CT of the chest report and may represent septic emboli or cavitary metastases. 6. Tiny bilateral pleural effusions with adjacent bibasilar atelectatic changes. Chest CT 04/20/18 00:00 CONCLUSION: 1. Multiple cavitary lesions bilaterally which could be consistent with septic emboli or cavitary metastases. Clinical correlation is recommended. 2. Multiple wedge-shaped areas of decreased perfusion within the spleen consistent with possible splenic infarcts. 3. Hepatosplenomegaly. 4. Tiny bilateral pleural effusions. 5. Bibasilar atelectasis. Assessment and Plan - Plan Mr. Garcia is 32-year-old male that was transferred from skilled nursing to the ED with recent admission 03/29/18 - 04/17/18 for infective endocarditis, bacteremia secondary to MSSA, septic emboli in lungs, and splenic infarcts. Patient was discharged to the skilled nursing 04/17/2018. He was previously on alias: Renea Lawson V#[id number]. However he was discharged from the skilled nursing yesterday. His antibiotics were continued at the skilled nursing until yesterday when he misses antibiotics. He went back to [place] because he does not have a primary care physician to continue his treatment. //Sepsis, secondary to infective endocarditis, with possible septic emboli to the lungs and spleen with splenic infarct -Sepsis based on leukocytosis, tachycardia and definite source of infection patient needs antibiotic for 1 day, resume Ancef per infectious disease 2 g every 6 hours. Consult infectious disease. Repeat blood cultures pending. Continue IVF. Patient has pleuritic chest pain, [place] as needed, no intravenous antibiotics. He is supposed to finish antibiotics of the May 12, 2018. Patient previously had vancomycin related fever. = 04/21. Positive blood cultures 04/19. CT with septic emboli in the chest. Recheck cultures. ID following. Continue antibiotics. //Anemia, appears chronic - Resume home iron, monitor intermittently. Transfuse as needed. //Left knee septic arthritis-status post left knee arthrotomy with irrigation debridement during previous admission, antibiotics as above. Pain control as above. Left lower extremity edema previously worked up, negative for DVT. //IV drug use, opiate dependency-avoid intravenous narcotics, consult //Hyponatremia - Na+ 135, continue normal saline. //DVT prophylaxis - Heparin 5000 units subcu every 12 hours
--- NOTE | 2018-04-21 14:34 | P.PNID ---
Subjective Remarks: Mr. Garcia is a 32-year-old male with past medical history significant for MSSA endocarditis for which she was admitted recently from March 29, 2018 to April 17, 2018. Patient was noted to have septic emboli to lungs as well as the spleen with infarcts. Patient was admitted under a different name Renea Lawson during that admission. He had a left knee arthrotomy with irrigation and debridement of the septic arthritis during his hospitalization. Once his acute sepsis was resolved and patient responded to Ancef IV patient was [facility]. Patient reports that on April 18, 2018 he was released from the [facility] system and that currently does not have any primary care physician and therefore presented to the emergency department for completion of his IV antibiotic therapy. Upon questioning patient reports that he has pain with deep inspiration bilaterally. He also reports occasional abdominal pain. He reports knee pain at the surgical site as well. He denies any fevers or chills. At the time of my evaluation patient is in the emergency department in the observation rooms. Infectious diseases consulted for evaluation and management of MSSA endocarditis as well as septic arthritis of knee. Overnight events reviewed BCX now positive for GPC Concern for PICC line infection as patient was released from [facility] in the interim and is an IVDA by history. No fever No rash No diarrhea Complains of pleuritic chest pain and pain in left knee. Antibiotics: reviewed. Lines: Line site ok Past Medical History: reviewed Allergies/Adverse Reactions: Allergies No Known Allergies Allergy (Unverified 04/19/18 15:29) Objective Vital Signs 04/20/18 15:17 04/20/18 17:15 04/20/18 20:00 Temperature 98.1 F 98.2 F 97.4 F L Pulse Rate 127 H 113 H 107 H Respiratory Rate 20 16 19 Blood Pressure 135/87 122/85 103/57 L Pulse Oximetry 100 98 96 04/21/18 00:00 04/21/18 04:00 04/21/18 07:51 Temperature 98.1 F 97.8 F Pulse Rate 107 H 109 H 107 H Respiratory Rate 18 21 Blood Pressure 128/80 101/53 L Pulse Oximetry 97 98 04/21/18 08:00 04/21/18 12:00 Temperature 98.3 F 98.2 F Pulse Rate 107 H 109 H Respiratory Rate 17 17 Blood Pressure 135/83 129/77 Pulse Oximetry 98 98 Intake & Output 04/20/18 04/21/18 04/21/18 18:59 06:59 18:59 Intake Total 1900 / 1900 1680 / 1680 1100 / 1100 Output Total 400 / 400 700 / 700 Balance 1500 / 1500 980 / 980 1100 / 1100 Weight 52 kg Intake: IV 1900 / 1900 1200 / 1200 1100 / 1100 NS Inj 1,000 ML @ 125 mls/hr IV 1600 / 1600 1000 / 1000 1000 / 1000 .CONT .Q8H [facility] Rx#:[id number] Ancef Inj 2,000 MG In NS Inj 80 300 / 300 200 / 200 100 / 100 ML @ 200 mls/hr IV.SIG Q6H [facility] Rx#:[id number] Oral 480 / 480 Output: Urine 400 / 400 700 / 700 Other: Date of Last Bowel Movement 04/20/18 04/20/18 04/20/18 04/19/18 16:00 Blood - Peripheral Aerobic Blood Culture - Preliminary No growth in 2 days 04/19/18 16:00 Blood - Peripheral Anaerobic Blood Culture - Preliminary gram positive cocci 04/19/18 15:50 Blood - Peripheral Aerobic Blood Culture - Preliminary No growth in 2 days 04/19/18 15:50 Blood - Peripheral Anaerobic Blood Culture - Preliminary No growth in 2 days Lab - Hematology Results 04/19/18 04/21/18 16:00 06:00 WBC 18.3 H 12.3 H RBC 3.01 L 2.81 L Hgb 7.9 L 7.4 L Hct 24.3 L 22.4 L MCV 80.9 79.5 L MCH 26.3 L 26.4 L MCHC 32.5 33.2 RDW 16.0 15.5 Plt Count 389 349 MPV 6.2 L 6.1 L Neut % (Auto) 84.1 H 82.9 H Lymph % (Auto) 10.1 11.6 [place] % (Auto) 5.1 4.0 Eos % (Auto) 0.4 1.0 Baso % (Auto) 0.3 0.5 Neut # (Auto) 15.4 H 10.2 H Lymph # (Auto) 1.9 1.4 [place] # (Auto) 0.9 0.5 Eos # (Auto) 0.1 0.1 Baso # (Auto) 0.1 0.1 WBC Differential . . Differential Comment Auto diff final Auto diff final Lab - Chemistry Results 04/19/18 04/19/18 04/19/18 16:00 16:00 16:36 Sodium 132 L Potassium 4.0 Chloride 98 Carbon Dioxide 26.1 Anion Gap 8 BUN 23 H Creatinine 0.86 Estimated GFR Greater than 89 Random Glucose 86 Lactic Acid 1.1 Calcium 8.5 Total Bilirubin Direct Bilirubin Indirect Bilirubin AST ALT Alkaline Phosphatase Troponin I 0.03 C-Reactive Protein Total Protein Albumin 04/20/18 04/20/18 14:01 15:35 Sodium 135 L Potassium 3.4 L Chloride 100 Carbon Dioxide 25.6 Anion Gap 9 BUN 16 Creatinine 0.74 Estimated GFR Greater than 89 Random Glucose 118 H Lactic Acid Calcium 8.0 L Total Bilirubin 0.1 L Direct Bilirubin 0.1 Indirect Bilirubin 0.0 AST 29 ALT 14 Alkaline Phosphatase 91 Troponin I C-Reactive Protein 7.09 H Total Protein 6.8 D Albumin 1.7 L Imaging: ITS Impressions Abdomen/Pelvis CT 04/20/18 00:00 CONCLUSION: 1. Multiple wedge-shaped perfusion defects involving the spleen suggestive of probable splenic infarcts. 2. Hepatosplenomegaly. 3. Peripheral cortical defects involving the kidneys bilaterally suggesting possible renal infarcts. 4. Some free fluid within the cul-de-sac. 5. Scattered cavitary lesions within the lungs which are described in detail on the CT of the chest report and may represent septic emboli or cavitary metastases. 6. Tiny bilateral pleural effusions with adjacent bibasilar atelectatic changes. Chest CT 04/20/18 00:00 CONCLUSION: 1. Multiple cavitary lesions bilaterally which could be consistent with septic emboli or cavitary metastases. Clinical correlation is recommended. 2. Multiple wedge-shaped areas of decreased perfusion within the spleen consistent with possible splenic infarcts. 3. Hepatosplenomegaly. 4. Tiny bilateral pleural effusions. 5. Bibasilar atelectasis. Physical Exam: GENERAL: Well-nourished well-developed, not in acute distress SKIN: Cool and dry, no generalized rash HEAD: Atraumatic. Normocephalic. No temporal or scalp tenderness. EYES: Pupils equal round and reactive. Scleral icterus. No injection or drainage. No petechia ENT: Nothing abnormal detected NECK: Trachea midline. Supple, nontender, no meningeal signs. CARDIOVASCULAR: HS audible. RESPIRATORY: Clear to auscultation bilaterally. GASTROINTESTINAL: Abdomen soft nontender. MUSCULOSKELETAL: Extremities without clubbing, cyanosis. Surgical site on the knee with evidence of dehiscence or infection. NEUROLOGICAL: Alert oriented 3. Nonfocal. Psych cooperative IV line sites ok. Assessment and Plan - Plan MSSA endocarditis MSSA left knee septic arthritis Was recently in the [facility] and discharged in stable has treatment to be completed and has no PCP or insurance History of IV drug abuse Pulmonary septic emboli with history of pleuritic chest pain concern for empyema especially given white count being at 18.6 Splenic infarct with white count having been elevated concern for splenic abscess PICC line in place Recommendations Continue Ancef IV Repeat blood cultures. DC PICC line as likely infected. Follow blood cultures CT chest abdomen pelvis with evidence of pulmonary and splenic septic emboli. Follow clinical course Discussed with Dr. Kaur Discussed with RN Discussed with patient
[2018-04-22] MEDS: SODIUM CHLORIDE IV.SIG SCH ×8 (01:50→17:52)
[2018-04-22] MEDS: CEFAZOLIN IV.SIG SCH ×8 (01:50→17:52)
[2018-04-22] MEDS: Sod Chloride 0.9% Inj 1,000 ML IV.CONT SCH ×4 (06:48→22:45)
[2018-04-22] MEDS: Heparin - SQ 10,000 UNITS/ML Vial SQ SCH ×2 (08:38→21:08)
[2018-04-22] MEDS: Ferrous Sulfate 325 MG Tablet PO SCH (08:38)
[2018-04-22] MEDS: Senna/Docusate Sodium 8.6/50 MG Tablet PO SCH ×2 (08:39→21:08)
[2018-04-22 09:20] LABS: Baso # (Auto) 0.1 th/mm3 (0.0-0.2); Baso % (Auto) 0.6 % (0.0-2.0); Eos # (Auto) 0.1 th/mm3 (0.0-0.4); Eos % (Auto) 0.6 % (0.0-4.0); Hematocrit 22.6 % (39.0-51.0); Hemoglobin 7.4 gm/dL (13.0-17.0); Lymph % (Auto) 5.9 % (9.0-44.0); Mean Corpuscular HGB Conc 32.7 % (32.0-36.0); Mean Corpuscular Hemoglobin 26.3 pg (27.0-34.0); Mean Corpuscular Volume 80.4 fL (80.0-100.0); Mean Platelet Volume 6.3 fL (7.0-11.0); Mono # (Auto) 0.8 th/mm3 (0.0-0.9); Mono % (Auto) 4.9 % (0.0-8.0); Neut # (Auto) 14.5 th/mm3 (1.8-7.7); Platelet Count 381 th/mm3 (150-450); Red Blood Count 2.81 mil/mm3 (4.50-5.90); Red Cell Distribution Width 16.1 % (11.6-17.2); White Blood Count 16.5 th/mm3 (4.0-11.0)
[2018-04-22 09:38] LABS: Albumin 1.9 g/dL (3.4-5.0); Anion Gap 10 meq/L (5-15); Blood Urea Nitrogen 13 mg/dL (7-18); Calcium 8.5 mg/dL (8.5-10.1); Carbon Dioxide 24.8 meq/L (21.0-32.0); Chloride 99 meq/L (98-107); Glomerular Filtration Rate Greater Than 89 mL/min (>89); Glucose,Random 114 mg/dL (74-106); Magnesium 1.4 mg/dL (1.5-2.5); Potassium 3.9 meq/L (3.5-5.1); Sodium 134 meq/L (136-145)
[2018-04-22 09:39] LABS: Phosphorus 2.6 mg/dL (2.5-4.9)
[2018-04-22] MEDS ORDERED: Magnesium Sulfate Inj 2 GM in Sodium Chlor 0.9% Inj 96 ML IV.SIG ONE (11:07)
--- NOTE | 2018-04-22 11:08 | P.PNIM ---
Subjective Interval history: Says he is feeling all right. Reports pain control. Denies any chest pain shortness of breath. Physical Exam Vital signs: Vital Signs 04/21/18 11:55 04/21/18 12:00 04/21/18 15:53 Temperature 98.2 F Pulse Rate 114 H 109 H 105 H Respiratory Rate 17 Blood Pressure 129/77 Pulse Oximetry 98 04/21/18 16:00 04/21/18 20:00 04/22/18 00:00 Temperature 98.0 F 98.9 F 98.1 F Pulse Rate 105 H 122 H 113 H Respiratory Rate 17 20 20 Blood Pressure 123/85 139/76 160/88 H Pulse Oximetry 99 97 98 04/22/18 04:00 04/22/18 08:00 Temperature 99.2 F 98.1 F Pulse Rate 107 H 113 H Respiratory Rate 20 16 Blood Pressure 127/71 135/71 Pulse Oximetry 97 96 Intake & Output 04/21/18 04/22/18 04/22/18 18:59 06:59 18:59 Intake Total 1500 / 1500 1920 / 1920 100 / 100 Balance 1500 / 1500 1920 / 1920 100 / 100 Weight 52 kg Intake: IV 1500 / 1500 1200 / 1200 100 / 100 NS Inj 1,000 ML @ 125 mls/hr IV 1400 / 1400 1000 / 1000 .CONT .Q8H [facility] Rx#:[id number] Ancef Inj 2,000 MG In NS Inj 80 100 / 100 200 / 200 100 / 100 ML @ 200 mls/hr IV.SIG Q6H [facility] Rx#:[id number] Oral 720 / 720 Other: # Voids 2,250 Date of Last Bowel Movement 04/20/18 04/20/18 04/20/18 Narrative: GENERAL: Patient lying in bed. Appears comfortable. SKIN: Warm and dry. HEAD: Normocephalic. EYES: No scleral icterus. No injection or drainage. NECK: Supple, trachea midline. No JVD. CARDIOVASCULAR: Regular rate and rhythm without murmurs, gallops, or rubs. Systolic ejection murmur. RESPIRATORY: Breath sounds equal bilaterally. No accessory muscle use. GASTROINTESTINAL: Abdomen soft, non-tender, nondistended. MUSCULOSKELETAL: No cyanosis. +1 left ankle edema. BACK: Nontender without obvious deformity. No CVA tenderness. Results - Labs CBC & Chem 7: 04/22/18 07:10 04/22/18 07:10 Laboratory Results - last 24 hr 04/22/18 04/22/18 07:10 07:10 WBC 16.5 H RBC 2.81 L Hgb 7.4 L Hct 22.6 L MCV 80.4 MCH 26.3 L MCHC 32.7 RDW 16.1 Plt Count 381 MPV 6.3 L Neut % (Auto) 88.0 H Lymph % (Auto) 5.9 L [place] % (Auto) 4.9 Eos % (Auto) 0.6 Baso % (Auto) 0.6 Neut # (Auto) 14.5 H Lymph # (Auto) 1.0 [place] # (Auto) 0.8 Eos # (Auto) 0.1 Baso # (Auto) 0.1 WBC Differential . Differential Comment Auto diff final Sodium 134 L Potassium 3.9 Chloride 99 Carbon Dioxide 24.8 Anion Gap 10 BUN 13 Creatinine 0.81 Estimated GFR Greater than 89 Random Glucose 114 H Calcium 8.5 Phosphorus 2.6 Magnesium 1.4 L Albumin 1.9 L Microbiology 04/21/18 15:25 Blood - Peripheral Aerobic Blood Culture - Preliminary No growth in 1 day 04/21/18 15:25 Blood - Peripheral Anaerobic Blood Culture - Preliminary No growth in 1 day 04/21/18 15:30 Blood - Peripheral Aerobic Blood Culture - Preliminary No growth in 1 day 04/21/18 15:30 Blood - Peripheral Anaerobic Blood Culture - Preliminary No growth in 1 day 04/19/18 15:50 Blood - Peripheral Aerobic Blood Culture - Preliminary No growth in 3 days 04/19/18 15:50 Blood - Peripheral Anaerobic Blood Culture - Preliminary No growth in 3 days 04/19/18 16:00 Blood - Peripheral Aerobic Blood Culture - Preliminary No growth in 3 days 04/19/18 16:00 Blood - Peripheral Anaerobic Blood Culture - Preliminary Staphylococcus coag negative Assessment and Plan - Plan Mr. Garcia is 32-year-old male that was transferred [facility] [place] ED with recent admission 03/29/18 - 04/17/18 for infective endocarditis, bacteremia secondary to MSSA, septic emboli in lungs, and splenic infarcts. Patient was discharged to the [place] [facility] 04/17/2018. He was previously on alias: Renea Lawson, Carmen#[id number]. However he was discharged from the [place] [facility] yesterday. His antibiotics were continued at the [place] [facility] until yesterday when he misses antibiotics. He went back to [place] because he does not have a primary care physician to continue his treatment. //Sepsis, secondary to infective endocarditis, with possible septic emboli to the lungs and spleen with splenic infarct -Sepsis based on leukocytosis, tachycardia and definite source of infection patient needs antibiotic for 1 day, resume Ancef per infectious disease 2 g every 6 hours. Consult infectious disease. Repeat blood cultures pending. Continue IVF. Patient has pleuritic chest pain, [place] as needed, no intravenous antibiotics. He is supposed to finish antibiotics of the May 12, 2018. Patient previously had vancomycin related fever. = 04/21. Positive blood cultures 04/19. CT with septic emboli in the chest. Recheck cultures. ID following. Continue antibiotics. = 04/22. PICC line removed. Follow-up repeat cultures from 04/21. Continue antibiotics as per ID. Appreciate assistance. //Anemia, appears chronic - Resume home iron, monitor intermittently. Transfuse as needed. //Left knee septic arthritis-status post left knee arthrotomy with irrigation debridement during previous admission, antibiotics as above. Pain control as above. Left lower extremity edema previously worked up, negative for DVT. //IV drug use, opiate dependency-avoid intravenous narcotics, consult //Hyponatremia - Na+ 135, continue normal saline. = 04/22. Likely secondary to hypomagnesemia. Replace magnesium. //Hypomagnesemia. 1.4. Replace and monitor. //DVT prophylaxis - Heparin 5000 units subcu every 12 hours Discharge Planning: Continues on iv antibiotics as per ID. Self-pay. Difficult discharge
[2018-04-23] MEDS: CEFAZOLIN IV.SIG SCH ×8 (01:11→17:43)
[2018-04-23] MEDS: SODIUM CHLORIDE IV.SIG SCH ×8 (01:11→17:43)
[2018-04-23] MEDS: Sod Chloride 0.9% Inj 1,000 ML IV.CONT SCH ×3 (07:56→15:52)
[2018-04-23 09:17] LABS: Baso # (Auto) 0.1 th/mm3 (0.0-0.2); Baso % (Auto) 0.9 % (0.0-2.0); Eos # (Auto) 0.2 th/mm3 (0.0-0.4); Eos % (Auto) 2.4 % (0.0-4.0); Hematocrit 21.9 % (39.0-51.0); Hemoglobin 7.4 gm/dL (13.0-17.0); Lymph # (Auto) 1.5 th/mm3 (1.0-4.8); Lymph % (Auto) 14.3 % (9.0-44.0); Mean Corpuscular HGB Conc 33.8 % (32.0-36.0); Mean Corpuscular Volume 79.8 fL (80.0-100.0); Mean Platelet Volume 6.2 fL (7.0-11.0); Mono # (Auto) 0.6 th/mm3 (0.0-0.9); Neut # (Auto) 7.8 th/mm3 (1.8-7.7); Neut % (Auto) 76.4 % (16.0-70.0); Platelet Count 386 th/mm3 (150-450); Red Blood Count 2.75 mil/mm3 (4.50-5.90); White Blood Count 10.2 th/mm3 (4.0-11.0)
[2018-04-23] MEDS: Senna/Docusate Sodium 8.6/50 MG Tablet PO SCH ×2 (09:19→21:30)
[2018-04-23] MEDS: Heparin - SQ 10,000 UNITS/ML Vial SQ SCH ×2 (09:19→21:30)
[2018-04-23] MEDS: Ferrous Sulfate 325 MG Tablet PO SCH (09:19)
[2018-04-23 09:42] LABS: Albumin 1.8 g/dL (3.4-5.0); Anion Gap 7 meq/L (5-15); Blood Urea Nitrogen 13 mg/dL (7-18); Calcium 8.3 mg/dL (8.5-10.1); Carbon Dioxide 28.3 meq/L (21.0-32.0); Chloride 101 meq/L (98-107); Glomerular Filtration Rate Greater Than 89 mL/min (>89); Glucose,Random 80 mg/dL (74-106); Potassium 4.1 meq/L (3.5-5.1); Sodium 136 meq/L (136-145)
[2018-04-23 09:46] LABS: Phosphorus 3.3 mg/dL (2.5-4.9)
--- NOTE | 2018-04-23 11:48 | P.PNIM ---
Subjective Interval history: Feeling right. Reports pain is under control. Denies any chest pain shortness of breath. Denies nausea vomiting. Physical Exam Vital signs: Vital Signs 04/22/18 12:00 04/22/18 16:00 04/22/18 19:40 Temperature 98.5 F 97.9 F Pulse Rate 108 H 107 H 113 H Respiratory Rate 16 16 Blood Pressure 121/83 128/77 Pulse Oximetry 97 97 04/22/18 20:00 04/23/18 00:00 04/23/18 04:00 Temperature 98.0 F 98.4 F 97.2 F L Pulse Rate 113 H 122 H 94 H Respiratory Rate 21 18 18 Blood Pressure 132/87 129/75 114/73 Pulse Oximetry 98 98 99 04/23/18 06:43 04/23/18 08:00 Temperature 97.5 F L Pulse Rate 89 Respiratory Rate 18 16 Blood Pressure 117/73 Pulse Oximetry 98 Intake & Output 04/22/18 04/23/18 04/23/18 18:59 06:59 18:59 Intake Total 2360 / 2360 2400 / 2400 Output Total 2400 / 2400 1250 / 1250 Balance -40 / -40 1150 / 1150 Weight 52.4 kg Intake: IV 1400 / 1400 1200 / 1200 NS Inj 1,000 ML @ 125 mls/hr IV 1000 / 1000 1000 / 1000 .CONT .Q8H [facility] Rx#:[id number] Magnesium Sulfate Inj 2 GM In 100 / 100 NS Inj 96 ML @ 50 mls/hr IV.SIG ONCE ONE Rx#:[id number] Ancef Inj 2,000 MG In NS Inj 80 300 / 300 200 / 200 ML @ 200 mls/hr IV.SIG Q6H [facility] Rx#:[id number] Oral 960 / 960 1200 / 1200 Output: Urine 2400 / 2400 1250 / 1250 Other: Date of Last Bowel Movement 04/20/18 04/20/18 04/20/18 Narrative: GENERAL: Patient lying in bed. Appears comfortable. Alert and oriented 3. SKIN: Warm and dry. HEAD: Normocephalic. EYES: No scleral icterus. No injection or drainage. NECK: Supple, trachea midline. No JVD. CARDIOVASCULAR: Regular rate and rhythm without murmurs, gallops, or rubs. Systolic ejection murmur. RESPIRATORY: Breath sounds equal bilaterally. No accessory muscle use. GASTROINTESTINAL: Abdomen soft, non-tender, nondistended. MUSCULOSKELETAL: No cyanosis. Trace left ankle edema. BACK: Nontender without obvious deformity. No CVA tenderness. Results - Labs CBC & Chem 7: 04/23/18 08:35 04/23/18 08:32 Laboratory Results - last 24 hr 04/23/18 04/23/18 08:32 08:35 WBC 10.2 RBC 2.75 L Hgb 7.4 L Hct 21.9 L MCV 79.8 L MCH 27.0 MCHC 33.8 RDW 16.0 Plt Count 386 MPV 6.2 L Neut % (Auto) 76.4 H Lymph % (Auto) 14.3 [place] % (Auto) 6.0 Eos % (Auto) 2.4 Baso % (Auto) 0.9 Neut # (Auto) 7.8 H Lymph # (Auto) 1.5 [place] # (Auto) 0.6 Eos # (Auto) 0.2 Baso # (Auto) 0.1 WBC Differential . Differential Comment Auto diff final Sodium 136 Potassium 4.1 Chloride 101 Carbon Dioxide 28.3 Anion Gap 7 BUN 13 Creatinine 0.71 Estimated GFR Greater than 89 Random Glucose 80 Calcium 8.3 L Phosphorus 3.3 Magnesium 2.0 D Albumin 1.8 L Microbiology 04/21/18 15:25 Blood - Peripheral Aerobic Blood Culture - Preliminary No growth in 2 days 04/21/18 15:25 Blood - Peripheral Anaerobic Blood Culture - Preliminary No growth in 2 days 04/21/18 15:30 Blood - Peripheral Aerobic Blood Culture - Preliminary No growth in 2 days 04/21/18 15:30 Blood - Peripheral Anaerobic Blood Culture - Preliminary No growth in 2 days 04/19/18 15:50 Blood - Peripheral Aerobic Blood Culture - Preliminary No growth in 4 days 04/19/18 15:50 Blood - Peripheral Anaerobic Blood Culture - Preliminary No growth in 4 days 04/19/18 16:00 Blood - Peripheral Aerobic Blood Culture - Preliminary No growth in 4 days 04/19/18 16:00 Blood - Peripheral Anaerobic Blood Culture - Final Staphylococcus hominis-hominis Assessment and Plan - Plan Mr. Garcia is 32-year-old male that [facility] with recent admission 03/29/18 - 04/17/18 for infective endocarditis, bacteremia secondary to MSSA, septic emboli in lungs, and splenic infarcts. [facility] He was previously on alias: ArchanaRenea mullins, Carmen#[id number]. However he was discharged from the prison yesterday. His antibiotics were continued at the prison until yesterday when he misses antibiotics. He went back to [place] because he does not have a primary care physician to continue his treatment. //Sepsis, secondary to infective endocarditis, with possible septic emboli to the lungs and spleen with splenic infarct -Sepsis based on leukocytosis, tachycardia and definite source of infection patient needs antibiotic for 1 day, resume Ancef per infectious disease 2 g every 6 hours. Consult infectious disease. Repeat blood cultures pending. Continue IVF. Patient has pleuritic chest pain, [place] as needed, no intravenous antibiotics. He is supposed to finish antibiotics of the May 12, 2018. Patient previously had vancomycin related fever. = 04/21. Positive blood cultures 04/19. CT with septic emboli in the chest. Recheck cultures. ID following. Continue antibiotics. = 04/22. PICC line removed. Follow-up repeat cultures from 04/21. Continue antibiotics as per ID. Appreciate assistance. = 04/23. Repeat cultures from 04/21-2 days. Cultures from 04/19 with staph hominis. Yann as per infectious disease. Appreciate assistance. //Anemia, appears chronic - Resume home iron, monitor intermittently. Transfuse as needed. //Left knee septic arthritis-status post left knee arthrotomy with irrigation debridement during previous admission, antibiotics as above. Pain control as above. Left lower extremity edema previously worked up, negative for DVT. //IV drug use, opiate dependency-avoid intravenous narcotics, consult //Hyponatremia - Na+ 135, continue normal saline. = 04/22. Likely secondary to hypomagnesemia. Replace magnesium. = 04/23. Resolved. Sodium 136. Likely secondary to hypomagnesemia. //Hypomagnesemia. 1.4. Replace and monitor. = 04/23. Resolved after placement. //DVT prophylaxis - Heparin 5000 units subcu every 12 hours Discharge Planning: Continues on iv antibiotics as per ID. Self-pay. Difficult discharge
[2018-04-24] MEDS: SODIUM CHLORIDE IV.SIG SCH ×8 (00:03→17:17)
[2018-04-24] MEDS: CEFAZOLIN IV.SIG SCH ×8 (00:03→17:17)
[2018-04-24] MEDS: Sod Chloride 0.9% Inj 1,000 ML IV.CONT SCH ×4 (00:04→18:10)
[2018-04-24] MEDS: Senna/Docusate Sodium 8.6/50 MG Tablet PO SCH ×2 (08:16→20:44)
[2018-04-24] MEDS: Ferrous Sulfate 325 MG Tablet PO SCH (08:16)
[2018-04-24] MEDS: Heparin - SQ 10,000 UNITS/ML Vial SQ SCH ×2 (08:17→20:45)
--- NOTE | 2018-04-24 11:51 | P.PNIM ---
Subjective Interval history: Patient says he is feeling all right. Denies any chest pain. Says he is feeling better overall than yesterday. No fevers overnight. Physical Exam Vital signs: Vital Signs 04/23/18 12:00 04/23/18 16:00 04/23/18 16:30 Temperature 98.0 F Pulse Rate 101 H 114 H 110 H Respiratory Rate 16 16 Blood Pressure 115/72 126/78 Pulse Oximetry 98 97 04/23/18 20:00 04/24/18 00:00 04/24/18 04:00 Temperature 98.4 F 98.1 F 98.8 F Pulse Rate 133 H 112 H 114 H Respiratory Rate 18 20 18 Blood Pressure 138/85 131/81 130/86 Pulse Oximetry 97 98 99 04/24/18 08:00 Temperature 98.3 F Pulse Rate 109 H Respiratory Rate 16 Blood Pressure 112/85 Pulse Oximetry 97 Intake & Output 04/23/18 04/24/18 04/24/18 18:59 06:59 18:59 Intake Total 200 / 200 1422 / 1422 778 / 778 Output Total 1775 / 1775 2700 / 2700 Balance -1575 / -1575 -1278 / -1278 778 / 778 Weight 53.1 kg Intake: IV 200 / 200 1422 / 1422 778 / 778 NS Inj 1,000 ML @ 125 mls/hr IV 1222 / 1222 778 / 778 .CONT .Q8H [facility] Rx#:[id number] Ancef Inj 2,000 MG In NS Inj 80 200 / 200 200 / 200 ML @ 200 mls/hr IV.SIG Q6H [facility] Rx#:[id number] Output: Urine 1775 / 1775 2700 / 2700 Other: Date of Last Bowel Movement 04/20/18 Narrative: GENERAL: Patient lying in bed. Appears comfortable. Alert and oriented 3. No change on exam. SKIN: Warm and dry. HEAD: Normocephalic. EYES: No scleral icterus. No injection or drainage. NECK: Supple, trachea midline. No JVD. CARDIOVASCULAR: Regular rate and rhythm without murmurs, gallops, or rubs. Systolic ejection murmur. RESPIRATORY: Breath sounds equal bilaterally. No accessory muscle use. GASTROINTESTINAL: Abdomen soft, non-tender, nondistended. MUSCULOSKELETAL: No cyanosis. Trace left ankle edema. Left knee wound dressed , clean dry and intact. BACK: Nontender without obvious deformity. No CVA tenderness. Results - Labs CBC & Chem 7: 04/23/18 08:35 04/23/18 08:32 Microbiology 04/21/18 15:25 Blood - Peripheral Aerobic Blood Culture - Preliminary No growth in 3 days 04/21/18 15:25 Blood - Peripheral Anaerobic Blood Culture - Preliminary No growth in 3 days 04/21/18 15:30 Blood - Peripheral Aerobic Blood Culture - Preliminary No growth in 3 days 04/21/18 15:30 Blood - Peripheral Anaerobic Blood Culture - Preliminary No growth in 3 days 04/19/18 15:50 Blood - Peripheral Aerobic Blood Culture - Final No growth in 5 days 04/19/18 15:50 Blood - Peripheral Anaerobic Blood Culture - Final No growth in 5 days 04/19/18 16:00 Blood - Peripheral Aerobic Blood Culture - Final No growth in 5 days 04/19/18 16:00 Blood - Peripheral Anaerobic Blood Culture - Final Staphylococcus hominis-hominis Assessment and Plan - Plan Mr. Garcia is 32-year-old male that was transferred [facility] [place] [facility] with recent admission 03/29/18 - 04/17/18 for infective endocarditis, bacteremia secondary to MSSA, septic emboli in lungs, and splenic infarcts. Patient was discharged to the [place] [facility] 04/17/2018. He was previously on alias: Renea Lawson, V#[id number]. However he was discharged from the [place] [facility] yesterday. His antibiotics were continued at the [place] [facility] until yesterday when he misses antibiotics. He went back to [place] because he does not have a primary care physician to continue his treatment. //Sepsis, secondary to infective endocarditis, with possible septic emboli to the lungs and spleen with splenic infarct -Sepsis based on leukocytosis, tachycardia and definite source of infection patient needs antibiotic for 1 day, resume Ancef per infectious disease 2 g every 6 hours. Consult infectious disease. Repeat blood cultures pending. Continue IVF. Patient has pleuritic chest pain, [place] as needed, no intravenous antibiotics. He is supposed to finish antibiotics of the May 12, 2018. Patient previously had vancomycin related fever. = 04/21. Positive blood cultures 04/19. CT with septic emboli in the chest. Recheck cultures. ID following. Continue antibiotics. = 04/22. PICC line removed. Follow-up repeat cultures from 04/21. Continue antibiotics as per ID. Appreciate assistance. = 04/23. Repeat cultures from 04/21-2 days. Cultures from 04/19 with staph hominis. Yann as per infectious disease. Appreciate assistance. = 04/24. Repeat cultures from 04/21-3 days. Continues afebrile. //Anemia, appears chronic - Resume home iron, monitor intermittently. Transfuse as needed. //Left knee septic arthritis-status post left knee arthrotomy with irrigation debridement during previous admission, antibiotics as above. Pain control as above. Left lower extremity edema previously worked up, negative for DVT. //IV drug use, opiate dependency-avoid intravenous narcotics, consult //Hyponatremia - Na+ 135, continue normal saline. = 04/22. Likely secondary to hypomagnesemia. Replace magnesium. = 04/23. Resolved. Sodium 136. Likely secondary to hypomagnesemia. //Hypomagnesemia. 1.4. Replace and monitor. = 04/23. Resolved after placement. //DVT prophylaxis - Heparin 5000 units subcu every 12 hours Discharge Planning: Continues on iv antibiotics as per ID. Self-pay. Difficult discharge
--- NOTE | 2018-04-24 13:58 | P.PNID ---
Infectious Disease Brief Note Dw FÉLIX Poe he discussed with patient. Currently homeless, just discharged from retirement, likely did drugs post discharge as line infected and worsening lung infection. Difficult discharge. Continue Ancef IV in hospital. to resume care on 05/01/2018. Will follow prn in the interim. Vital Signs - 24 hr 04/23/18 16:00 04/23/18 16:30 04/23/18 20:00 Temperature 98.0 F 98.4 F Pulse Rate 114 H 110 H 133 H Respiratory Rate 16 18 Blood Pressure 126/78 138/85 Pulse Oximetry 97 97 04/24/18 00:00 04/24/18 04:00 04/24/18 08:00 Temperature 98.1 F 98.8 F 98.3 F Pulse Rate 112 H 114 H 105 H Respiratory Rate 20 18 16 Blood Pressure 131/81 130/86 112/85 Pulse Oximetry 98 99 97 04/24/18 12:00 Temperature 98.1 F Pulse Rate 113 H Respiratory Rate 16 Blood Pressure 129/86 Pulse Oximetry 99
[2018-04-25] MEDS: SODIUM CHLORIDE IV.SIG SCH ×10 (00:16→23:41)
[2018-04-25] MEDS: CEFAZOLIN IV.SIG SCH ×10 (00:16→23:41)
[2018-04-25] MEDS: Sod Chloride 0.9% Inj 1,000 ML IV.CONT SCH ×6 (00:16→22:06)
[2018-04-25] MEDS: Heparin - SQ 10,000 UNITS/ML Vial SQ SCH ×2 (08:26→20:45)
[2018-04-25] MEDS: Ferrous Sulfate 325 MG Tablet PO SCH (08:26)
[2018-04-25] MEDS: Senna/Docusate Sodium 8.6/50 MG Tablet PO SCH ×2 (08:26→20:45)
--- NOTE | 2018-04-25 10:59 | P.PNIM ---
Subjective Interval history: Patient says he is feeling right. Denies any chest pain shortness of breath. Denies n/vomiting. Physical Exam Vital signs: Vital Signs 04/24/18 12:00 04/24/18 16:00 04/24/18 20:00 Temperature 98.1 F 97.8 F 97.9 F Pulse Rate 113 H 108 H 106 H Respiratory Rate 16 18 18 Blood Pressure 129/86 129/72 119/73 Pulse Oximetry 99 98 98 04/25/18 00:00 04/25/18 04:00 04/25/18 08:00 Temperature 97.9 F 98.6 F 97.8 F Pulse Rate 62 64 106 H Respiratory Rate 18 Blood Pressure 121/75 127/80 126/86 Pulse Oximetry 98 98 94 L Intake & Output 04/24/18 04/25/18 04/25/18 18:59 06:59 18:59 Intake Total 2938 / 2938 1680 / 1680 Output Total 900 / 900 1550 / 1550 Balance 2037 / 2037 130 / 130 Intake: IV 1977 1200 / 1200 NS Inj 1,000 ML @ 125 mls/hr IV 1778 / 1778 1000 / 1000 .CONT .Q8H [facility] Rx#:[id number] Ancef Inj 2,000 MG In NS Inj 80 200 / 200 200 / 200 ML @ 200 mls/hr IV.SIG Q6H [facility] Rx#:[id number] Oral 960 / 960 480 / 480 Output: Urine 900 / 900 1550 / 1550 Other: Date of Last Bowel Movement 04/24/18 # Bowel Movements 1 Narrative: GENERAL: Patient lying in bed. Appears comfortable. Alert and oriented 3. No change on exam SKIN: Warm and dry. HEAD: Normocephalic. EYES: No scleral icterus. No injection or drainage. NECK: Supple, trachea midline. No JVD. CARDIOVASCULAR: Regular rate and rhythm without murmurs, gallops, or rubs. Systolic ejection murmur. RESPIRATORY: Breath sounds equal bilaterally. No accessory muscle use. GASTROINTESTINAL: Abdomen soft, non-tender, nondistended. MUSCULOSKELETAL: No cyanosis. Trace left ankle edema. Left knee wound without surrounding erythema. BACK: Nontender without obvious deformity. No CVA tenderness. Results - Labs CBC & Chem 7: 04/23/18 08:35 04/23/18 08:32 Microbiology 04/21/18 15:25 Blood - Peripheral Aerobic Blood Culture - Preliminary No growth in 3 days 04/21/18 15:25 Blood - Peripheral Anaerobic Blood Culture - Preliminary No growth in 3 days 04/21/18 15:30 Blood - Peripheral Aerobic Blood Culture - Preliminary No growth in 3 days 04/21/18 15:30 Blood - Peripheral Anaerobic Blood Culture - Preliminary No growth in 3 days 04/19/18 15:50 Blood - Peripheral Aerobic Blood Culture - Final No growth in 5 days 04/19/18 15:50 Blood - Peripheral Anaerobic Blood Culture - Final No growth in 5 days 04/19/18 16:00 Blood - Peripheral Aerobic Blood Culture - Final No growth in 5 days 04/19/18 16:00 Blood - Peripheral Anaerobic Blood Culture - Final Staphylococcus hominis-hominis Assessment and Plan - Plan Mr. Garcia is 32-year-old male that was transferred from [facility] ED with recent admission 03/29/18 - 04/17/18 for infective endocarditis, bacteremia secondary to MSSA, septic emboli in lungs, and splenic infarcts. Patient was discharged to the [facility] 04/17/2018. He was previously on alias: Renea Lawson, Carmen#[id number]. However he was discharged from the [facility] yesterday. His antibiotics were continued at the [facility] until yesterday when he misses antibiotics. He went back to [place] because he does not have a primary care physician to continue his treatment. //Sepsis, secondary to infective endocarditis, with possible septic emboli to the lungs and spleen with splenic infarct -Sepsis based on leukocytosis, tachycardia and definite source of infection patient needs antibiotic for 1 day, resume Ancef per infectious disease 2 g every 6 hours. Consult infectious disease. Repeat blood cultures pending. Continue IVF. Patient has pleuritic chest pain, [place] as needed, no intravenous antibiotics. He is supposed to finish antibiotics of the May 12, 2018. Patient previously had vancomycin related fever. = 04/21. Positive blood cultures 04/19. CT with septic emboli in the chest. Recheck cultures. ID following. Continue antibiotics. = 04/22. PICC line removed. Follow-up repeat cultures from 04/21. Continue antibiotics as per ID. Appreciate assistance. = 04/23. Repeat cultures from 04/21-2 days. Cultures from 04/19 with staph hominis. Yann as per infectious disease. Appreciate assistance. = 04/24. Repeat cultures from 04/21-3 days. Continues afebrile. = 04/25. Continue IV antibiotics as per infectious disease. //Anemia, appears chronic - Resume home iron, monitor intermittently. Transfuse as needed. //Left knee septic arthritis-status post left knee arthrotomy with irrigation debridement during previous admission, antibiotics as above. Pain control as above. Left lower extremity edema previously worked up, negative for DVT. //IV drug use, opiate dependency-avoid intravenous narcotics, consult //Hyponatremia - Na+ 135, continue normal saline. = 04/22. Likely secondary to hypomagnesemia. Replace magnesium. = 04/23. Resolved. Sodium 136. Likely secondary to hypomagnesemia. //Hypomagnesemia. 1.4. Replace and monitor. = 04/23. Resolved after placement. //DVT prophylaxis - Heparin 5000 units subcu every 12 hours Discharge Planning: Continues on iv antibiotics as per ID. Self-pay. Difficult discharge
[2018-04-25] MEDS ORDERED: Artificial Tears Opth Drops 15 ML Bottle EACH EYE PRN (22:21)
[2018-04-25] MEDS ORDERED: Hypromellose 0.3% Opth Gel 10 GM Bottle EACH EYE PRN (23:15)
[2018-04-26] MEDS: SODIUM CHLORIDE IV.SIG SCH ×6 (05:36→17:07)
[2018-04-26] MEDS: CEFAZOLIN IV.SIG SCH ×6 (05:36→17:07)
[2018-04-26] MEDS: Sod Chloride 0.9% Inj 1,000 ML IV.CONT SCH ×3 (06:10→22:49)
[2018-04-26] MEDS: Heparin - SQ 10,000 UNITS/ML Vial SQ SCH ×2 (08:42→20:53)
[2018-04-26] MEDS: Ferrous Sulfate 325 MG Tablet PO SCH (08:43)
[2018-04-26] MEDS: Senna/Docusate Sodium 8.6/50 MG Tablet PO SCH ×2 (08:45→20:53)
--- NOTE | 2018-04-26 15:24 | P.PNIM ---
Subjective Interval history: Patient says he is feeling alright. Denies any chest pain shortness of breath. No acute events per nursing. Physical Exam Vital signs: Vital Signs 04/25/18 16:00 04/25/18 18:00 04/25/18 20:00 Temperature 98.1 F 97.5 F L Pulse Rate 110 H 169 H 129 H Respiratory Rate 18 20 Blood Pressure 140/89 113/89 Pulse Oximetry 99 98 04/26/18 00:00 04/26/18 04:00 04/26/18 08:00 Temperature 98.4 F 98.3 F 97.9 F Pulse Rate 107 H 96 H 109 H Respiratory Rate 20 20 17 Blood Pressure 116/75 112/77 138/91 H Pulse Oximetry 98 100 99 04/26/18 12:00 Temperature 98.1 F Pulse Rate 114 H Respiratory Rate 17 Blood Pressure 121/85 Pulse Oximetry 99 Intake & Output 04/25/18 04/26/18 04/26/18 18:59 06:59 18:59 Intake Total 1820 / 1820 2576 / 2576 100 / 100 Output Total 2200 / 2200 2100 / 2100 Balance -380 / -380 476 / 476 100 / 100 Intake: IV 1100 / 1100 1856 / 1856 100 / 100 NS Inj 1,000 ML @ 125 mls/hr IV 1000 / 1000 1556 / 1556 .CONT .Q8H [facility] Rx#:[id number] Ancef Inj 2,000 MG In NS Inj 80 100 / 100 300 / 300 100 / 100 ML @ 200 mls/hr IV.SIG Q6H [facility] Rx#:[id number] Oral 720 / 720 720 / 720 Output: Urine 2200 / 2200 2100 / 2100 Other: Date of Last Bowel Movement 04/24/18 Narrative: GENERAL: Patient lying in bed. Appears comfortable. Alert and oriented 3. Again, no change on exam SKIN: Warm and dry. HEAD: Normocephalic. EYES: No scleral icterus. No injection or drainage. NECK: Supple, trachea midline. No JVD. CARDIOVASCULAR: Regular rate and rhythm without murmurs, gallops, or rubs. Systolic ejection murmur. RESPIRATORY: Breath sounds equal bilaterally. No accessory muscle use. GASTROINTESTINAL: Abdomen soft, non-tender, nondistended. MUSCULOSKELETAL: No cyanosis. Trace left ankle edema. Left knee wound without surrounding erythema. BACK: Nontender without obvious deformity. No CVA tenderness. Results - Labs CBC & Chem 7: 04/23/18 08:35 04/23/18 08:32 Microbiology 04/21/18 15:25 Blood - Peripheral Aerobic Blood Culture - Final No growth in 5 days 04/21/18 15:25 Blood - Peripheral Anaerobic Blood Culture - Final No growth in 5 days 04/21/18 15:30 Blood - Peripheral Aerobic Blood Culture - Final No growth in 5 days 04/21/18 15:30 Blood - Peripheral Anaerobic Blood Culture - Final No growth in 5 days Assessment and Plan - Plan Mr. Garcia is 32-year-old male that was transferred from [facility] to the ED with recent admission 03/29/18 - 04/17/18 for infective endocarditis, bacteremia secondary to MSSA, septic emboli in lungs, and splenic infarcts. Patient was discharged to the [facility] 04/17/2018. He was previously on alias: Renea Lawson, V#[id number]. However he was discharged from the [facility] yesterday. His antibiotics were continued at the [facility] until yesterday when he misses antibiotics. He went back to [place] because he does not have a primary care physician to continue his treatment. //Sepsis, secondary to infective endocarditis, with possible septic emboli to the lungs and spleen with splenic infarct -Sepsis based on leukocytosis, tachycardia and definite source of infection patient needs antibiotic for 1 day, resume Ancef per infectious disease 2 g every 6 hours. Consult infectious disease. Repeat blood cultures pending. Continue IVF. Patient has pleuritic chest pain, [place] as needed, no intravenous antibiotics. He is supposed to finish antibiotics of the May 12, 2018. Patient previously had vancomycin related fever. = 04/21. Positive blood cultures 04/19. CT with septic emboli in the chest. Recheck cultures. ID following. Continue antibiotics. = 04/22. PICC line removed. Follow-up repeat cultures from 04/21. Continue antibiotics as per ID. Appreciate assistance. = 04/23. Repeat cultures from 04/21-2 days. Cultures from 04/19 with staph hominis. Yann as per infectious disease. Appreciate assistance. = 04/24. Repeat cultures from 04/21-3 days. Continues afebrile. = 04/25. Continue IV antibiotics as per infectious disease. = 04/26. Repeat cultures negative 5 days. Continue IV antibiotics as per infectious disease.. //Anemia, appears chronic - Resume home iron, monitor intermittently. Transfuse as needed. //Left knee septic arthritis-status post left knee arthrotomy with irrigation debridement during previous admission, antibiotics as above. Pain control as above. Left lower extremity edema previously worked up, negative for DVT. //IV drug use, opiate dependency-avoid intravenous narcotics, consult //Hyponatremia - Na+ 135, continue normal saline. = 04/22. Likely secondary to hypomagnesemia. Replace magnesium. = 04/23. Resolved. Sodium 136. Likely secondary to hypomagnesemia. //Hypomagnesemia. 1.4. Replace and monitor. = 04/23. Resolved after placement. //DVT prophylaxis - Heparin 5000 units subcu every 12 hours Discharge Planning: Continues on iv antibiotics as per ID. We will need ID clearance. Self-pay. Difficult discharge
[2018-04-27] MEDS: Sod Chloride 0.9% Inj 1,000 ML IV.CONT SCH ×5 (02:59→23:49)
[2018-04-27] MEDS: SODIUM CHLORIDE IV.SIG SCH ×8 (06:04→17:17)
[2018-04-27] MEDS: CEFAZOLIN IV.SIG SCH ×8 (06:04→17:17)
[2018-04-27] MEDS: Senna/Docusate Sodium 8.6/50 MG Tablet PO SCH ×2 (09:47→21:22)
[2018-04-27] MEDS: Heparin - SQ 10,000 UNITS/ML Vial SQ SCH ×2 (09:47→21:22)
[2018-04-27] MEDS: Ferrous Sulfate 325 MG Tablet PO SCH (09:47)
--- NOTE | 2018-04-27 13:44 | P.PNIM ---
Subjective Interval history: Says he is feeling right. Denies any chest pain or shortness of breath. He does report waking up with some cramps in left leg yesterday. Resolves upon waking. He asked to be screened for HIV. Physical Exam Vital signs: Vital Signs 04/26/18 16:00 04/26/18 16:47 04/26/18 20:00 Temperature 97.8 F 99.3 F Pulse Rate 122 H 122 H 126 H Respiratory Rate 17 18 Blood Pressure 132/86 133/83 Pulse Oximetry 100 98 04/27/18 00:00 04/27/18 04:00 04/27/18 08:00 Temperature 98.4 F 98.2 F 98.2 F Pulse Rate 123 H 122 H 126 H Respiratory Rate 18 18 18 Blood Pressure 125/80 132/65 122/81 Pulse Oximetry 97 98 98 Intake & Output 04/26/18 04/27/18 04/27/18 18:59 06:59 18:59 Intake Total 2640 / 2640 1400 / 1400 900 / 900 Output Total 1800 / 1800 2900 / 2900 Balance 840 / 840 -1500 / -1500 900 / 900 Weight 54.1 kg Intake: IV 1200 / 1200 1400 / 1400 900 / 900 NS Inj 1,000 ML @ 125 mls/hr IV 1000 / 1000 1200 / 1200 800 / 800 .CONT .Q8H [facility] Rx#:[id number] Ancef Inj 2,000 MG In NS Inj 80 200 / 200 200 / 200 100 / 100 ML @ 200 mls/hr IV.SIG Q6H [facility] Rx#:[id number] Oral 1440 / 1440 Output: Urine 1800 / 1800 2900 / 2900 Other: Date of Last Bowel Movement 04/24/18 04/24/18 # Bowel Movements 0 Narrative: GENERAL: Patient lying in bed. Appears comfortable. Alert and oriented 3. Again, no change on exam SKIN: Warm and dry. HEAD: Normocephalic. EYES: No scleral icterus. No injection or drainage. NECK: Supple, trachea midline. No JVD. CARDIOVASCULAR: Regular rate and rhythm without murmurs, gallops, or rubs. Systolic ejection murmur. RESPIRATORY: Breath sounds equal bilaterally. No accessory muscle use. GASTROINTESTINAL: Abdomen soft, non-tender, nondistended. MUSCULOSKELETAL: No cyanosis. Trace left ankle edema. Left knee wound without surrounding erythema. He is to be healing well. BACK: Nontender without obvious deformity. No CVA tenderness. Results - Labs CBC & Chem 7: 04/23/18 08:35 04/23/18 08:32 Microbiology 04/21/18 15:25 Blood - Peripheral Aerobic Blood Culture - Final No growth in 5 days 04/21/18 15:25 Blood - Peripheral Anaerobic Blood Culture - Final No growth in 5 days 04/21/18 15:30 Blood - Peripheral Aerobic Blood Culture - Final No growth in 5 days 04/21/18 15:30 Blood - Peripheral Anaerobic Blood Culture - Final No growth in 5 days Assessment and Plan - Plan Mr. Garcia is 32-year-old male that [facility] with recent admission 03/29/18 - 04/17/18 for infective endocarditis, bacteremia secondary to MSSA, septic emboli in lungs, and splenic infarcts. [facility]. He was previously on alias: Renea Lawson V#[id number]. However [facility] was [facility] yesterday. [facility] until yesterday when he misses antibiotics. He went back to [place] because he does not have a primary care physician to continue his treatment. //Sepsis, secondary to infective endocarditis, with possible septic emboli to the lungs and spleen with splenic infarct -Sepsis based on leukocytosis, tachycardia and definite source of infection patient needs antibiotic for 1 day, resume Ancef per infectious disease 2 g every 6 hours. Consult infectious disease. Repeat blood cultures pending. Continue IVF. Patient has pleuritic chest pain, [place] as needed, no intravenous antibiotics. He is supposed to finish antibiotics of the May 12, 2018. Patient previously had vancomycin related fever. = 04/21. Positive blood cultures 04/19. CT with septic emboli in the chest. Recheck cultures. ID following. Continue antibiotics. = 04/22. PICC line removed. Follow-up repeat cultures from 04/21. Continue antibiotics as per ID. Appreciate assistance. = 04/23. Repeat cultures from 04/21-2 days. Cultures from 04/19 with staph hominis. Yann as per infectious disease. Appreciate assistance. = 04/24. Repeat cultures from 04/21-3 days. Continues afebrile. = 04/25. Continue IV antibiotics as per infectious disease. = 04/27. Repeat cultures negative 5 days. Continue IV antibiotics as per infectious disease.. //Left knee incision healing well. Most recently seen by orthopedics last time on 04/17. Somewhat slow healing. No signs of infection. Recommend removing sutures over the next few days. //Nocturnal leg cramps. Will check electrolytes tomorrow morning. //Anemia, appears chronic - Resume home iron, monitor intermittently. Transfuse as needed. //Left knee septic arthritis-status post left knee arthrotomy with irrigation debridement during previous admission, antibiotics as above. Pain control as above. Left lower extremity edema previously worked up, negative for DVT. //IV drug use, opiate dependency-avoid intravenous narcotics, consult //Hyponatremia - Na+ 135, continue normal saline. = 04/22. Likely secondary to hypomagnesemia. Replace magnesium. = 04/23. Resolved. Sodium 136. Likely secondary to hypomagnesemia. //Hypomagnesemia. 1.4. Replace and monitor. = 04/23. Resolved after placement. //DVT prophylaxis - Heparin 5000 units subcu every 12 hours Discharge Planning: Continues on iv antibiotics as per ID. We will need ID clearance. Self-pay. Difficult discharge
--- NOTE | 2018-04-27 15:26 | P.DIET ---
Nutritional Evaluation Type of nutrition evaluation: follow-up Nutrition screening: Weight Loss > 10 lbs Objective - Diagnosis Endocarditis - Objective % IBW: 84 (DGC=[id number]#) Body Weight Used for Calculations: IBW (64.5kg) Energy Needs - Lower Range (kCal/kg): 25 Energy Needs - Upper Range (kCal/kg): 30 Lower Limit kCal/kg (kCals): 1,613 Upper Limit kCal/kg (kCals): 1,935 Lower Limit Protein Factor (Grams per Kg): 1.1 Upper Limit Protein Factor (Grams per Kg): 1.3 Lower Protein Needs (Protein): 71 Upper Protein Needs (Protein): 84 Dietitian Reviewed in Medical Record: Current diet, Curent medications, Intake & Output, Labs Diet Order: Heart Healthy Oral Diet Intake Amount: Excellent 90%+ Assessment Assessment: Pt remains on a heart healthy diet. He is receiving Enlive TID. Pt is eating and drinking 100% of his meals. Meds, wts, labs reviewed. Continue current POC. Consult RD if needed.
[2018-04-28] MEDS: SODIUM CHLORIDE IV.SIG SCH ×8 (00:21→17:51)
[2018-04-28] MEDS: CEFAZOLIN IV.SIG SCH ×8 (00:21→17:51)
[2018-04-28] MEDS: Sod Chloride 0.9% Inj 1,000 ML IV.CONT SCH ×4 (06:46→23:50)
[2018-04-28 07:21] LABS: Baso # (Auto) 0.1 th/mm3 (0.0-0.2); Baso % (Auto) 0.6 % (0.0-2.0); Eos # (Auto) 0.1 th/mm3 (0.0-0.4); Eos % (Auto) 1.3 % (0.0-4.0); Hematocrit 25.1 % (39.0-51.0); Hemoglobin 8.3 gm/dL (13.0-17.0); Lymph # (Auto) 1.8 th/mm3 (1.0-4.8); Lymph % (Auto) 16.7 % (9.0-44.0); Mean Corpuscular Hemoglobin 26.4 pg (27.0-34.0); Mean Corpuscular Volume 79.9 fL (80.0-100.0); Mean Platelet Volume 6.3 fL (7.0-11.0); Mono # (Auto) 0.6 th/mm3 (0.0-0.9); Neut # (Auto) 8.1 th/mm3 (1.8-7.7); Neut % (Auto) 75.4 % (16.0-70.0); Platelet Count 455 th/mm3 (150-450); Red Blood Count 3.14 mil/mm3 (4.50-5.90); Red Cell Distribution Width 16.3 % (11.6-17.2); White Blood Count 10.7 th/mm3 (4.0-11.0)
[2018-04-28 07:33] LABS: Albumin 2.2 g/dL (3.4-5.0); Anion Gap 8 meq/L (5-15); Blood Urea Nitrogen 13 mg/dL (7-18); Carbon Dioxide 27.9 meq/L (21.0-32.0); Chloride 100 meq/L (98-107); Glomerular Filtration Rate Greater Than 89 mL/min (>89); Glucose,Random 89 mg/dL (74-106); Magnesium 1.9 mg/dL (1.5-2.5); Phosphorus 4.3 mg/dL (2.5-4.9); Potassium 4.1 meq/L (3.5-5.1); Sodium 136 meq/L (136-145)
[2018-04-28] MEDS: Ferrous Sulfate 325 MG Tablet PO SCH (08:27)
[2018-04-28] MEDS: Senna/Docusate Sodium 8.6/50 MG Tablet PO SCH ×2 (08:27→22:59)
[2018-04-28] MEDS: Heparin - SQ 10,000 UNITS/ML Vial SQ SCH ×2 (08:27→22:58)
--- NOTE | 2018-04-28 11:44 | P.PNIM ---
Subjective Interval history: 32-year-old male admitted for endocarditis and septic left knee. He has a history of IV drug use and has intentions to quit. He has noted improvement in his left knee, less pain overall, no recent fevers. Physical Exam Vital signs: Vital Signs 04/27/18 12:00 04/27/18 16:00 04/27/18 18:00 Temperature 97.8 F 98.5 F Pulse Rate 119 H 117 H 116 H Respiratory Rate 18 Blood Pressure 122/80 122/77 Pulse Oximetry 99 99 04/27/18 20:00 04/27/18 23:22 04/28/18 00:00 Temperature 98.1 F 100.6 F H Pulse Rate 127 H 127 H Respiratory Rate 18 5 L 18 Blood Pressure 128/80 128/87 Pulse Oximetry 100 99 04/28/18 04:00 04/28/18 08:00 Temperature 97.7 F 97.6 F Pulse Rate 100 H 119 H Respiratory Rate 18 20 Blood Pressure 108/75 121/82 Pulse Oximetry 99 100 Intake & Output 04/27/18 04/28/18 04/28/18 18:59 06:59 18:59 Intake Total 1960 / 1960 900 / 900 1000 / 1000 Output Total 1200 / 1200 Balance 760 / 760 900 / 900 1000 / 1000 Weight 55 kg Intake: IV 1000 / 1000 900 / 900 1000 / 1000 NS Inj 1,000 ML @ 125 mls/hr IV 800 / 800 700 / 700 1000 / 1000 .CONT .Q8H [facility] Rx#:[id number] Ancef Inj 2,000 MG In NS Inj 80 200 / 200 200 / 200 ML @ 200 mls/hr IV.SIG Q6H [facility] Rx#:[id number] Oral 960 / 960 Output: Urine 1200 / 1200 Other: Date of Last Bowel Movement 04/24/18 # Bowel Movements 0 Narrative: GENERAL: AAOx3, no acute distress SKIN: Warm and dry. No rashes HEAD: Atruamtic, normocephalic. EYES: No scleral icterus. No injection or drainage. ENT: Moist mucous membranes, patent nares, no erythema of oropharynx. NECK: Supple, trachea midline. No JVD or lymphadenopathy. Normal thyroid. CARDIOVASCULAR: Regular rate and rhythm. No murmurs, gallops, or rubs. RESPIRATORY: Breath sounds clear equal bilaterally. No crackles or wheezes. No accessory muscle use. GASTROINTESTINAL: Abdomen soft, non-tender, nondistended, normal active bowel sounds MUSCULOSKELETAL: No cyanosis, left knee is moderately swollen, moderate tenderness, muscle wasting of right leg (chronic) NEURO: CN II-XII grossly intact, no focal deficits, no slurring of speech Results - Labs CBC & Chem 7: 04/28/18 06:22 04/28/18 06:22 Laboratory Results - last 24 hr 04/27/18 04/28/18 04/28/18 16:25 06:22 06:22 WBC 10.7 RBC 3.14 L Hgb 8.3 L Hct 25.1 L MCV 79.9 L MCH 26.4 L MCHC 33.0 RDW 16.3 Plt Count 455 H MPV 6.3 L Neut % (Auto) 75.4 H Lymph % (Auto) 16.7 [place] % (Auto) 6.0 Eos % (Auto) 1.3 Baso % (Auto) 0.6 Neut # (Auto) 8.1 H Lymph # (Auto) 1.8 [place] # (Auto) 0.6 Eos # (Auto) 0.1 Baso # (Auto) 0.1 WBC Differential . Differential Comment Auto diff final Sodium 136 Potassium 4.1 Chloride 100 Carbon Dioxide 27.9 Anion Gap 8 BUN 13 Creatinine 0.81 Estimated GFR Greater than 89 Random Glucose 89 Calcium 9.0 Phosphorus 4.3 Magnesium 1.9 Albumin 2.2 L HIV 1&2 Ab/P24 Ag 4thGn Nonreactive Assessment and Plan - Plan Mr. Garcia is 32-year-old male that was transferred from [facility] to the ED with recent admission 03/29/18 - 04/17/18 for infective endocarditis, bacteremia secondary to MSSA, septic emboli in lungs, and splenic infarcts. Patient was discharged to the long-term 04/17/2018. He was previously on jelani: Renea Lawson V#[id number]. However he was discharged from the long-term yesterday. His antibiotics were continued at the long-term until yesterday when he misses antibiotics. He went back to [place] because he does not have a primary care physician to continue his treatment. Sepsis, secondary to infective endocarditis possible septic emboli to the lungs and spleen with splenic infarct Repeat blood cultures from 04/19 shows staph hominis Blood cultures repeated after that are negative Continue vancomycin and Ancef until May 12, 2018 per ID Appreciate infectious disease consult Septic left knee s/p left knee arthrotomy with irrigation and debridement Last seen by orthopedics on April 17, surgical wound is healing well, no sign of infection Anemia Most likely anemia of chronic disease, follow hemoglobin intermittently, transfuse if needed DVT Prophylaxis Heparin Discharge Planning Patient is self-pay, will need ID clearance, difficult discharge
[2018-04-28] MEDS ORDERED: Metoprolol Tartrate 25 MG Tablet PO ONE (22:40)
[2018-04-29] MEDS: SODIUM CHLORIDE IV.SIG SCH ×8 (01:42→17:44)
[2018-04-29] MEDS: CEFAZOLIN IV.SIG SCH ×8 (01:42→17:44)
[2018-04-29] MEDS: Sod Chloride 0.9% Inj 1,000 ML IV.CONT SCH ×4 (06:35→22:00)
[2018-04-29] MEDS: Heparin - SQ 10,000 UNITS/ML Vial SQ SCH ×2 (09:22→22:03)
[2018-04-29] MEDS: Senna/Docusate Sodium 8.6/50 MG Tablet PO SCH ×2 (09:22→22:02)
[2018-04-29] MEDS: Ferrous Sulfate 325 MG Tablet PO SCH (09:22)
--- NOTE | 2018-04-29 10:00 | P.PNIM ---
Subjective Interval history: Patient complains of intermittent knee pain, he has not yet been up on his feet. Pain is worse at full extension and beyond 120 degrees flexion. Physical Exam Vital signs: Vital Signs 04/28/18 12:00 04/28/18 16:00 04/28/18 20:00 Temperature 98.6 F 98.3 F 99.0 F Pulse Rate 112 H 110 H 127 H Respiratory Rate 18 18 21 Blood Pressure 121/79 116/73 121/83 Pulse Oximetry 99 97 98 04/29/18 00:00 04/29/18 04:00 04/29/18 08:00 Temperature 98.2 F 98.1 F 98.0 F Pulse Rate 121 H 110 H 81 Respiratory Rate 18 18 20 Blood Pressure 127/74 127/74 111/78 Pulse Oximetry 99 99 97 Intake & Output 04/28/18 04/29/18 04/29/18 18:59 06:59 18:59 Intake Total 2510 / 2510 978 / 978 Output Total 1000 / 1000 Balance 1510 / 1510 978 / 978 Weight 55 kg Intake: IV 1950 / 1950 978 / 978 NS Inj 1,000 ML @ 125 mls/hr IV 1750 / 1750 778 / 778 .CONT .Q8H [facility] Rx#:[id number] Ancef Inj 2,000 MG In NS Inj 80 200 / 200 200 / 200 ML @ 200 mls/hr IV.SIG Q6H [facility] Rx#:[id number] Oral 560 / 560 Output: Urine 1000 / 1000 Other: Date of Last Bowel Movement 04/27/18 04/28/18 Narrative: GENERAL: AAOx3, no acute distress SKIN: Warm and dry. Knee surgical wound clean, intact, fully healed, sutures still in place HEAD: Atruamtic, normocephalic. EYES: No scleral icterus. No injection or drainage. ENT: Moist mucous membranes, patent nares, no erythema of oropharynx. NECK: Supple, trachea midline. No JVD or lymphadenopathy. Normal thyroid. CARDIOVASCULAR: Regular rate and rhythm. No murmurs, gallops, or rubs. RESPIRATORY: Breath sounds clear equal bilaterally. No crackles or wheezes. No accessory muscle use. GASTROINTESTINAL: Abdomen soft, non-tender, nondistended, normal active bowel sounds MUSCULOSKELETAL: No cyanosis, left knee is moderately swollen, moderate tenderness, muscle wasting of right leg (chronic) NEURO: CN II-XII grossly intact, no focal deficits, no slurring of speech Results - Labs CBC & Chem 7: 04/28/18 06:22 04/28/18 06:22 Assessment and Plan - Plan Mr. Garcia is 32-year-old male that [facility] with recent admission 03/29/18 - 04/17/18 for infective endocarditis, bacteremia secondary to MSSA, septic emboli in lungs, and splenic infarcts. [facility] was [facility] to the [facility] 04[facility]17/2018. He was previously on alias: Renea Lawson, Carmen#[id number]. However he was discharged from the [facility] yesterday. His antibiotics were continued at the [facility] until yesterday when he misses antibiotics. He went back to [place] because he does not have a primary care physician to continue his treatment. Sepsis, secondary to infective endocarditis possible septic emboli to the lungs and spleen with splenic infarct Repeat blood cultures from 04/19 shows staph hominis Blood cultures repeated after that are negative Continue vancomycin and Ancef until May 12, 2018 per ID Appreciate infectious disease consult Septic left knee s/p left knee arthrotomy with irrigation and debridement, performed 3 weeks ago Last seen by orthopedics on April 17, surgical wound is fully healed, no sign of infection, sutures still in place After 3 weeks sutures need to be removed, wound is fully healed. Sutures will be removed this afternoon Begin physical therapy today Tachycardia Nurse requested treatment overnight, patient was given metoprolol with favorable result We will look into other causes including hypothyroidism, for now continue with scheduled metoprolol Anemia Most likely anemia of chronic disease, follow hemoglobin intermittently, transfuse if needed DVT Prophylaxis Heparin Discharge Planning Patient is self-pay, will need ID clearance, difficult discharge
[2018-04-29] MEDS: Metoprolol Tartrate 25 MG Tablet PO SCH (22:03)
[2018-04-30] MEDS: CEFAZOLIN IV.SIG SCH ×8 (00:54→18:05)
[2018-04-30] MEDS: SODIUM CHLORIDE IV.SIG SCH ×8 (00:54→18:05)
[2018-04-30] MEDS: Sod Chloride 0.9% Inj 1,000 ML IV.CONT SCH ×2 (05:57→16:36)
[2018-04-30 08:01] LABS: Alanine Aminotransferase 12 U/L (12-78); Albumin 2.1 g/dL (3.4-5.0); Anion Gap 7 meq/L (5-15); Aspartate Aminotransferase 25 U/L (15-37); Blood Urea Nitrogen 15 mg/dL (7-18); Calcium 8.7 mg/dL (8.5-10.1); Carbon Dioxide 28.5 meq/L (21.0-32.0); Chloride 99 meq/L (98-107); Glomerular Filtration Rate Greater Than 89 mL/min (>89); Glucose,Random 96 mg/dL (74-106); Potassium 4.2 meq/L (3.5-5.1); Sodium 134 meq/L (136-145)
[2018-04-30 08:11] LABS: Alkaline Phosphatase 93 U/L (45-117); Total Protein 7.9 g/dL (6.4-8.2)
[2018-04-30] MEDS: Ferrous Sulfate 325 MG Tablet PO SCH (09:42)
[2018-04-30] MEDS: Heparin - SQ 10,000 UNITS/ML Vial SQ SCH ×2 (09:42→20:09)
[2018-04-30] MEDS: Metoprolol Tartrate 25 MG Tablet PO SCH ×2 (09:42→20:09)
[2018-04-30] MEDS: Senna/Docusate Sodium 8.6/50 MG Tablet PO SCH ×2 (09:42→20:09)
--- NOTE | 2018-04-30 10:48 | P.PNIM ---
Subjective Interval history: Patient had his sutures removed yesterday and is beginning to ambulate with physical therapy today the left knee had septic arthritis and is still photographer but mobility is the treatment plan at this time. Physical Exam Vital signs: Vital Signs 04/29/18 11:52 04/29/18 12:00 04/29/18 16:00 Temperature 99.0 F 101.1 F H Pulse Rate 124 H 120 H 128 H Respiratory Rate 20 19 Blood Pressure 119/73 123/90 Pulse Oximetry 98 98 04/29/18 16:01 04/29/18 17:46 04/29/18 20:00 Temperature 99.0 F 99.2 F Pulse Rate 128 H 121 H Respiratory Rate 20 Blood Pressure 131/75 Pulse Oximetry 97 04/30/18 00:00 04/30/18 04:00 Temperature 99.1 F 99.1 F Pulse Rate 114 H 118 H Respiratory Rate 18 20 Blood Pressure 122/84 117/84 Pulse Oximetry 98 98 Intake & Output 04/29/18 04/30/18 04/30/18 18:59 06:59 18:59 Intake Total 2538 / 2538 1600 / 1600 Output Total 900 / 900 4400 / 4400 Balance 1638 / 1638 -2800 / -2800 Weight 52.163 kg Intake: IV 1578 / 1578 1600 / 1600 NS Inj 1,000 ML @ 125 mls/hr IV 1378 / 1378 1400 / 1400 .CONT .Q8H [facility] Rx#:[id number] Ancef Inj 2,000 MG In NS Inj 80 200 / 200 200 / 200 ML @ 200 mls/hr IV.SIG Q6H [facility] Rx#:[id number] Oral 960 / 960 Output: Urine 900 / 900 4400 / 4400 Other: Date of Last Bowel Movement 04/28/18 04/28/18 Narrative: GENERAL: AAOx3, no acute distress SKIN: Warm and dry. Knee surgical wound clean, intact, fully healed, sutures still in place HEAD: Atruamtic, normocephalic. EYES: No scleral icterus. No injection or drainage. ENT: Moist mucous membranes, patent nares, no erythema of oropharynx. NECK: Supple, trachea midline. No JVD or lymphadenopathy. Normal thyroid. CARDIOVASCULAR: Regular rate and rhythm. No murmurs, gallops, or rubs. RESPIRATORY: Breath sounds clear equal bilaterally. No crackles or wheezes. No accessory muscle use. GASTROINTESTINAL: Abdomen soft, non-tender, nondistended, normal active bowel sounds MUSCULOSKELETAL: No cyanosis, left knee is moderately swollen, moderate tenderness, muscle wasting of right leg (chronic) NEURO: CN II-XII grossly intact, no focal deficits, no slurring of speech Results - Labs CBC & Chem 7: 04/28/18 06:22 04/30/18 06:34 Laboratory Results - last 24 hr 04/30/18 06:34 Sodium 134 L Potassium 4.2 Chloride 99 Carbon Dioxide 28.5 Anion Gap 7 BUN 15 Creatinine 0.77 Estimated GFR Greater than 89 Random Glucose 96 Calcium 8.7 Total Bilirubin 0.2 AST 25 ALT 12 Alkaline Phosphatase 93 Total Protein 7.9 Albumin 2.1 L TSH 1.260 Assessment and Plan - Plan Mr. Garcia is 32-year-old male that was transferred from longterm to the ED with recent admission 03/29/18 - 04/17/18 for infective endocarditis, bacteremia secondary to MSSA, septic emboli in lungs, and splenic infarcts. Patient was discharged to the longterm 04/17/2018. He was previously on alias: Renea Lwason, Carmen#[id number]. However he was discharged from the longterm yesterday. His antibiotics were continued at the longterm until yesterday when he misses antibiotics. He went back to [place] because he does not have a primary care physician to continue his treatment. 04/30/18 = 5 sutures removed from surgical site, 3 weeks old. Patient beginning to work with PT today. Sepsis, secondary to infective endocarditis possible septic emboli to the lungs and spleen with splenic infarct Repeat blood cultures from 04/19 shows staph hominis Blood cultures repeated after that are negative Continue vancomycin and Ancef until May 12, 2018 per ID Appreciate infectious disease consult Septic left knee s/p left knee arthrotomy with irrigation and debridement, performed 3 weeks ago Last seen by orthopedics on April 17, surgical wound is fully healed, no sign of infection, sutures still in place After 3 weeks sutures need to be removed, wound is fully healed. Sutures will be removed this afternoon Continue physical therapy, encourage ambulation Tachycardia Nurse requested treatment overnight, patient was given metoprolol with favorable result We will look into other causes including hypothyroidism, for now continue with scheduled metoprolol Anemia Most likely anemia of chronic disease, follow hemoglobin intermittently, transfuse if needed DVT Prophylaxis Heparin, encourage ambulation Discharge Planning Patient is self-pay, will need ID clearance, difficult discharge
[2018-05-01] MEDS: SODIUM CHLORIDE IV.SIG SCH ×8 (00:11→17:24)
[2018-05-01] MEDS: CEFAZOLIN IV.SIG SCH ×8 (00:11→17:24)
[2018-05-01] MEDS: Sod Chloride 0.9% Inj 1,000 ML IV.CONT SCH ×2 (00:12→06:25)
[2018-05-01] MEDS: Metoprolol Tartrate 25 MG Tablet PO SCH ×2 (08:12→21:22)
[2018-05-01] MEDS: Ferrous Sulfate 325 MG Tablet PO SCH (08:13)
[2018-05-01] MEDS: Heparin - SQ 10,000 UNITS/ML Vial SQ SCH (08:14)
[2018-05-01] MEDS: Senna/Docusate Sodium 8.6/50 MG Tablet PO SCH ×2 (08:14→21:23)
--- NOTE | 2018-05-01 11:36 | P.PNIM ---
Subjective Interval history: Patient attempted to ambulate yesterday and feels some soreness in his bilateral legs due to activity after a long period of inactivity and bed rest. He is mentally motivated to get back on his feet again and ambulate the halls. Physical Exam Vital signs: Vital Signs 04/30/18 11:45 04/30/18 12:00 04/30/18 15:59 Temperature 97.7 F Pulse Rate 105 H 112 H 119 H Respiratory Rate 20 Blood Pressure 123/80 Pulse Oximetry 99 04/30/18 16:00 04/30/18 20:00 05/01/18 00:00 Temperature 97.9 F 98.1 F 98.2 F Pulse Rate 113 H 122 H 115 H Respiratory Rate 20 20 18 Blood Pressure 122/88 135/75 100/72 Pulse Oximetry 100 99 99 05/01/18 04:00 05/01/18 04:38 05/01/18 08:00 Temperature 98.1 F 97.6 F Pulse Rate 113 H 111 H 107 H Respiratory Rate 17 18 Blood Pressure 121/68 112/65 Pulse Oximetry 100 100 Intake & Output 04/30/18 05/01/18 05/01/18 18:59 06:59 18:59 Intake Total 2160 / 2160 1478 / 1478 950 / 950 Output Total 2100 / 2100 Balance 2160 / 2160 -622 / -622 950 / 950 Weight 52.6 kg Intake: IV 1200 / 1200 1478 / 1478 950 / 950 NS Inj 1,000 ML @ 125 mls/hr IV 1000 / 1000 1278 / 1278 950 / 950 .CONT .Q8H [facility] Rx#:[id number] Ancef Inj 2,000 MG In NS Inj 80 200 / 200 200 / 200 ML @ 200 mls/hr IV.SIG Q6H [facility] Rx#:[id number] Oral 960 / 960 Output: Urine 2100 / 2100 Other: # Voids 800 Date of Last Bowel Movement 04/28/18 04/28/18 # Bowel Movements 1 Narrative: GENERAL: AAOx3, no acute distress SKIN: Warm and dry. Knee surgical wound clean, intact, fully healed, sutures still in place HEAD: Atruamtic, normocephalic. EYES: No scleral icterus. No injection or drainage. ENT: Moist mucous membranes, patent nares, no erythema of oropharynx. NECK: Supple, trachea midline. No JVD or lymphadenopathy. Normal thyroid. CARDIOVASCULAR: Regular rate and rhythm. No murmurs, gallops, or rubs. RESPIRATORY: Breath sounds clear equal bilaterally. No crackles or wheezes. No accessory muscle use. GASTROINTESTINAL: Abdomen soft, non-tender, nondistended, normal active bowel sounds MUSCULOSKELETAL: No cyanosis, left knee is moderately swollen, moderate tenderness, muscle wasting of right leg (chronic) NEURO: CN II-XII grossly intact, no focal deficits, no slurring of speech Results - Labs CBC & Chem 7: 04/28/18 06:22 04/30/18 06:34 Assessment and Plan - Plan Mr. Garcia is 32-year-old male that [facility] with recent admission 03/29/18 - 04/17/18 for infective endocarditis, bacteremia secondary to MSSA, septic emboli in lungs, and splenic infarcts. Patient was [facility] the [facility] 04/17/2018. He was previously on alias: Renea Lawson, Carmen#[id number]. However he was discharged from the [facility] yesterday. His antibiotics were continued at the [facility]ent[facility] until yesterday when he misses antibiotics. He went back to [place] because he does not have a primary care physician to continue his treatment. 04/30/18 = 5 sutures removed from surgical site, 3 weeks old. Patient beginning to work with PT today. 05/01/18 = patient improving with his activity, discontinue maintenance IV fluids , discontinue heparin, naproxen added Sepsis, secondary to infective endocarditis possible septic emboli to the lungs and spleen with splenic infarct Repeat blood cultures from 04/19 shows staph hominis Blood cultures repeated after that are negative Continue vancomycin and Ancef until May 12, 2018 per ID Appreciate infectious disease consult Septic left knee s/p left knee arthrotomy with irrigation and debridement, performed 3 weeks ago Last seen by orthopedics on April 17, surgical wound is fully healed, no sign of infection, sutures still in place After 3 weeks sutures need to be removed, wound is fully healed. Sutures will be removed this afternoon Continue physical therapy, encourage ambulation, Aleve added to help with stiffness and pain Tachycardia Nurse requested treatment overnight, patient was given metoprolol with favorable result We will look into other causes including hypothyroidism, for now continue with scheduled metoprolol Anemia Most likely anemia of chronic disease, follow hemoglobin intermittently, transfuse if needed DVT Prophylaxis Encourage ambulation, heparin stopped Discharge Planning Patient is self-pay, will need ID clearance, difficult discharge
[2018-05-02] MEDS: CEFAZOLIN IV.SIG SCH ×10 (01:28→23:33)
[2018-05-02] MEDS: SODIUM CHLORIDE IV.SIG SCH ×10 (01:28→23:33)
[2018-05-02 06:59] LABS: Hematocrit 25.8 % (39.0-51.0); Hemoglobin 8.5 gm/dL (13.0-17.0); Mean Corpuscular HGB Conc 32.9 % (32.0-36.0); Mean Platelet Volume 6.2 fL (7.0-11.0); Platelet Count 472 th/mm3 (150-450); Red Blood Count 3.27 mil/mm3 (4.50-5.90); Red Cell Distribution Width 16.1 % (11.6-17.2); White Blood Count 8.8 th/mm3 (4.0-11.0)
[2018-05-02 07:19] LABS: Anion Gap 11 meq/L (5-15); Blood Urea Nitrogen 18 mg/dL (7-18); Calcium 9.1 mg/dL (8.5-10.1); Carbon Dioxide 27.2 meq/L (21.0-32.0); Chloride 101 meq/L (98-107); Glomerular Filtration Rate Greater Than 89 mL/min (>89); Glucose,Random 81 mg/dL (74-106); Potassium 4.2 meq/L (3.5-5.1); Sodium 139 meq/L (136-145)
[2018-05-02] MEDS: Metoprolol Tartrate 25 MG Tablet PO SCH ×3 (08:32→21:28)
[2018-05-02] MEDS: Senna/Docusate Sodium 8.6/50 MG Tablet PO SCH ×2 (08:32→21:28)
[2018-05-02] MEDS: Ferrous Sulfate 325 MG Tablet PO SCH (08:33)
--- NOTE | 2018-05-02 10:37 | P.PNIM ---
Subjective Interval history: Patient remains in positive mood with positive output. He has been doing a lot of internal work to change his thinking and focus on recovery from his addiction. He still gets short of breath but was able to ambulate to the bathroom by himself and back to bed. He is very happy about this improvement with his strength. Physical Exam Vital signs: Vital Signs 05/01/18 12:00 05/01/18 16:00 05/01/18 20:00 Temperature 98.3 F 97.4 F L 97.9 F Pulse Rate 117 H 105 H 121 H Respiratory Rate 18 Blood Pressure 114/78 125/80 121/77 Pulse Oximetry 99 100 100 05/01/18 22:00 05/02/18 00:00 05/02/18 04:00 Temperature 97.2 F L 97.9 F Pulse Rate 115 H 120 H Respiratory Rate 18 Blood Pressure 126/78 128/80 Pulse Oximetry 100 100 05/02/18 08:00 Temperature 97.4 F L Pulse Rate 118 H Respiratory Rate 18 Blood Pressure 119/74 Pulse Oximetry 100 Intake & Output 05/01/18 05/02/18 05/02/18 18:59 06:59 18:59 Intake Total 2230 / 2230 200 / 200 Output Total 1400 / 1400 1200 / 1200 Balance 830 / 830 -1000 / -1000 Weight 51.8 kg Intake: IV 1150 / 1150 200 / 200 NS Inj 1,000 ML @ 125 mls/hr IV 950 / 950 .CONT .Q8H [facility] Rx#:[id number] Ancef Inj 2,000 MG In NS Inj 80 200 / 200 200 / 200 ML @ 200 mls/hr IV.SIG Q6H [facility] Rx#:[id number] Oral 1080 / 1080 Output: Urine 1400 / 1400 1200 / 1200 Other: Date of Last Bowel Movement 04/30/18 04/30/18 Narrative: GENERAL: AAOx3, no acute distress SKIN: Warm and dry. Knee surgical wound clean, intact, fully healed, sutures still in place HEAD: Atruamtic, normocephalic. EYES: No scleral icterus. No injection or drainage. ENT: Moist mucous membranes, patent nares, no erythema of oropharynx. NECK: Supple, trachea midline. No JVD or lymphadenopathy. Normal thyroid. CARDIOVASCULAR: Regular rate and rhythm. No murmurs, gallops, or rubs. RESPIRATORY: Breath sounds clear equal bilaterally. No crackles or wheezes. No accessory muscle use. GASTROINTESTINAL: Abdomen soft, non-tender, nondistended, normal active bowel sounds MUSCULOSKELETAL: No cyanosis, left knee is moderately swollen, moderate tenderness, muscle wasting of right leg (chronic) NEURO: CN II-XII grossly intact, no focal deficits, no slurring of speech Results - Labs CBC & Chem 7: 05/02/18 05:21 05/02/18 05:21 Laboratory Results - last 24 hr 05/02/18 05/02/18 05:21 05:21 WBC 8.8 RBC 3.27 L Hgb 8.5 L Hct 25.8 L MCV 79.0 L MCH 26.0 L MCHC 32.9 RDW 16.1 Plt Count 472 H MPV 6.2 L Sodium 139 Potassium 4.2 Chloride 101 Carbon Dioxide 27.2 Anion Gap 11 BUN 18 Creatinine 0.73 Estimated GFR Greater than 89 Random Glucose 81 Calcium 9.1 Assessment and Plan - Plan Mr. Garcia is 32-year-old male that was [facility] with recent admission 03/29/18 - 04/17/18 for infective endocarditis, bacteremia secondary to MSSA, septic emboli in lungs, and splenic infarcts. Patient was [facility] to the [facility] 04/17/2018. He was previously on alias: Renea Lawson, Carmen#[id number]. However he was discharged from the [facility] yesterday. His antibiotics were continued at the [facility] until yesterday when he misses antibiotics. He went back to [place] because he does not have a primary care physician to continue his treatment. 04/30/18 = 5 sutures removed from surgical site, 3 weeks old. Patient beginning to work with PT today. 05/01/18 = patient improving with his activity, discontinue maintenance IV fluids , discontinue heparin, naproxen added 05/02/18 = patient was able to walk to bathroom with walker, encourage further distances. Metoprolol increased from 12.5 mg to 25 mg twice daily. Sepsis, secondary to infective endocarditis possible septic emboli to the lungs and spleen with splenic infarct Repeat blood cultures from 04/19 shows staph hominis Blood cultures repeated after that are negative Continue vancomycin and Ancef until May 12, 2018 per ID Appreciate infectious disease consult Septic left knee s/p left knee arthrotomy with irrigation and debridement, performed 3 weeks ago Last seen by orthopedics on April 17, surgical wound is fully healed, no sign of infection, sutures still in place After 3 weeks sutures need to be removed, wound is fully healed. Sutures will be removed this afternoon Continue physical therapy, encourage ambulation, Aleve added to help with stiffness and pain Tachycardia Thyroid is within normal limits, hemoglobin is stable at 8.5, no other metabolic causes are evident Most likely this is SVT, did not respond robustly to lower dose of metoprolol, increased today to metoprolol 25 mg twice daily Continue telemetry Anemia Hemoglobin is stable today at 8.5 Most likely anemia of chronic disease, follow hemoglobin intermittently, transfuse if needed DVT Prophylaxis Encourage ambulation Discharge Planning Patient is self-pay, will need ID clearance, difficult discharge
--- NOTE | 2018-05-02 12:35 | P.PNID ---
Subjective Remarks: Mr. Garcia is a 32-year-old male with past medical history significant for MSSA endocarditis for which she was admitted recently from March 29, 2018 to April 17, 2018. Patient was noted to have septic emboli to lungs as well as the spleen with infarcts. Patient was admitted under a different name Renea Lawson during that admission. He had a left knee arthrotomy with irrigation and debridement of the septic arthritis during his hospitalization. Once his acute sepsis was resolved and patient responded to Ancef IV patient was discharged to the senior care system. Patient reports that on April 18, 2018 he was released from the senior care system and that currently does not have any primary care physician and therefore presented to the emergency department for completion of his IV antibiotic therapy. He was found to have MV and TV vegetations. Also had surgery for L septic knee. Has evidence of possible SI joint infection/inflammation on MRI. Initial plan was to complete Abx Rx until May 22 Notes reviewed Afebrile Overall much improved compared to when I saw him during his last admission Has been ambulating with walker Flexion of his L knee to 90 degrees Pain in L buttock gone CP better Not SOB No diarrhea No rash or itching Pne (+) BC on admission with Staph hominis PICC has been removed Antibiotics: Ancef Lines: PIV - Line site ok Past Medical History: reviewed Allergies/Adverse Reactions: Allergies No Known Allergies Allergy (Unverified 04/19/18 15:29) Objective Vital Signs 05/01/18 16:00 05/01/18 20:00 05/01/18 22:00 Temperature 97.4 F L 97.9 F Pulse Rate 105 H 121 H Respiratory Rate 18 18 18 Blood Pressure 125/80 121/77 Pulse Oximetry 100 100 05/02/18 00:00 05/02/18 04:00 05/02/18 08:00 Temperature 97.2 F L 97.9 F 97.4 F L Pulse Rate 115 H 120 H 118 H Respiratory Rate 18 18 18 Blood Pressure 126/78 128/80 119/74 Pulse Oximetry 100 100 100 Intake & Output 05/01/18 05/02/18 05/02/18 18:59 06:59 18:59 Intake Total 2230 / 2230 200 / 200 Output Total 1400 / 1400 1200 / 1200 Balance 830 / 830 -1000 / -1000 Weight 51.8 kg Intake: IV 1150 / 1150 200 / 200 NS Inj 1,000 ML @ 125 mls/hr IV 950 / 950 .CONT .Q8H [facility] Rx#:[id number] Ancef Inj 2,000 MG In NS Inj 80 200 / 200 200 / 200 ML @ 200 mls/hr IV.SIG Q6H [facility] Rx#:[id number] Oral 1080 / 1080 Output: Urine 1400 / 1400 1200 / 1200 Other: Date of Last Bowel Movement 04/30/18 04/30/18 Lab - Hematology Results 05/02/18 05:21 WBC 8.8 RBC 3.27 L Hgb 8.5 L Hct 25.8 L MCV 79.0 L MCH 26.0 L MCHC 32.9 RDW 16.1 Plt Count 472 H MPV 6.2 L Lab - Chemistry Results 05/02/18 05:21 Sodium 139 Potassium 4.2 Chloride 101 Carbon Dioxide 27.2 Anion Gap 11 BUN 18 Creatinine 0.73 Estimated GFR Greater than 89 Random Glucose 81 Calcium 9.1 Imaging: ITS Impressions Abdomen/Pelvis CT 04/20/18 00:00 CONCLUSION: 1. Multiple wedge-shaped perfusion defects involving the spleen suggestive of probable splenic infarcts. 2. Hepatosplenomegaly. 3. Peripheral cortical defects involving the kidneys bilaterally suggesting possible renal infarcts. 4. Some free fluid within the cul-de-sac. 5. Scattered cavitary lesions within the lungs which are described in detail on the CT of the chest report and may represent septic emboli or cavitary metastases. 6. Tiny bilateral pleural effusions with adjacent bibasilar atelectatic changes. Chest CT 04/20/18 00:00 CONCLUSION: 1. Multiple cavitary lesions bilaterally which could be consistent with septic emboli or cavitary metastases. Clinical correlation is recommended. 2. Multiple wedge-shaped areas of decreased perfusion within the spleen consistent with possible splenic infarcts. 3. Hepatosplenomegaly. 4. Tiny bilateral pleural effusions. 5. Bibasilar atelectasis. Physical Exam: GENERAL: Well-nourished well-developed, not in acute distress SKIN: Cool and dry, no generalized rash HEAD: Atraumatic. Normocephalic. No temporal or scalp tenderness. EYES: Pupils equal round and reactive. Scleral icterus. No injection or drainage. No petechia ENT: Nothing abnormal detected NECK: Trachea midline. Supple, nontender, no meningeal signs. CARDIOVASCULAR: HS audible. RESPIRATORY: Clear to auscultation bilaterally. GASTROINTESTINAL: Abdomen soft nontender. MUSCULOSKELETAL: Extremities without clubbing, cyanosis. Healed incision L knee , flexion 90 degrees NEUROLOGICAL: Alert oriented 3. Nonfocal. Psych cooperative IV line sites ok. 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 Follow blood cultures Monitor progress
[2018-05-03] MEDS: CEFAZOLIN IV.SIG SCH ×8 (05:37→23:38)
[2018-05-03] MEDS: SODIUM CHLORIDE IV.SIG SCH ×8 (05:37→23:38)
[2018-05-03] MEDS: Metoprolol Tartrate 25 MG Tablet PO SCH ×2 (08:55→20:46)
[2018-05-03] MEDS: Ferrous Sulfate 325 MG Tablet PO SCH (08:55)
[2018-05-03] MEDS: Senna/Docusate Sodium 8.6/50 MG Tablet PO SCH ×2 (08:55→20:46)
--- NOTE | 2018-05-03 11:00 | P.PNIM ---
Subjective Interval history: Patient is in no acute distress, he is able to ambulate with minimal pain of his left knee. Physical Exam Vital signs: Vital Signs 05/02/18 12:00 05/02/18 14:40 05/02/18 16:00 Temperature 97.8 F 97.8 F Pulse Rate 115 H 117 H 99 H Respiratory Rate 18 18 Blood Pressure 102/68 109/65 Pulse Oximetry 99 100 05/02/18 18:43 05/02/18 20:00 05/03/18 00:00 Temperature 98.0 F 97.6 F Pulse Rate 100 H 115 H 129 H Respiratory Rate 20 18 Blood Pressure 108/68 125/71 Pulse Oximetry 100 100 05/03/18 04:00 05/03/18 08:00 Temperature 98.1 F 97.3 F L Pulse Rate 123 H 107 H Respiratory Rate 18 18 Blood Pressure 104/68 121/73 Pulse Oximetry 99 100 Intake & Output 05/02/18 05/03/18 05/03/18 18:59 06:59 18:59 Intake Total 200 / 200 200 / 200 Output Total 600 / 600 Balance -400 / -400 200 / 200 Intake: IV 200 / 200 200 / 200 Ancef Inj 2,000 MG In NS Inj 80 200 / 200 200 / 200 ML @ 200 mls/hr IV.SIG Q6H [facility] Rx#:[id number] Output: Urine 600 / 600 Other: Date of Last Bowel Movement 04/30/18 04/30/18 Narrative: General patient in no acute distress HEENT extraocular movements are intact, clear oropharyngeal mucosa, no JVD Cardiovascular S1-S2 audible Respiratory clear to auscultation bilaterally Abdomen soft, nontender, nondistended, normal bowel sounds Extremities no edema 2+ distal pulses in bilateral upper and lower extremities, well-healed scar of the left knee. No signs of infection. Neuro patient can move all 4 extremities sensation is intact bilaterally Results - Labs CBC & Chem 7: 05/02/18 05:21 05/02/18 05:21 Assessment and Plan - Plan This patient is a 32-year-old male with a history of IV drug abuse. The patient states that he uses IV heroin. 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 He also had septic emboli to the lung and spleen from the endocarditis. [facility] and [facility] in [facility] and has now returned to our facility for treatment of infective endocarditis. Sepsis, secondary to MSSA infective endocarditis Patient is tachycardic, no fevers, blood pressure stable. Repeat blood cultures are negative. He will be continued on IV Ancef until 05/22/2018 as per infectious disease recommendations. Patient was advised to stop drug use, he agrees to stop the drug use at this time. Septic left knee s/p left knee arthrotomy with irrigation and debridement, performed 3 weeks ago Last seen by orthopedics on April 17, surgical wound has healed, there are no signs of infections. He is tolerating physical therapy without any significant difficulties. After 3 weeks sutures need to be removed, wound is fully healed. Continue physical therapy, encourage ambulation Anemia Hemoglobin is stable today at 8.5 Most likely anemia of chronic disease, will continue to monitor his hemoglobin level. DVT Prophylaxis Patient is ambulating Discharge Planning Patient is self-pay, will need ID clearance, difficult discharge.
--- NOTE | 2018-05-03 13:44 | P.PNID ---
Subjective Remarks: Mr. Garcia is a 32-year-old male with past medical history significant for MSSA endocarditis for which she was admitted recently from March 29, 2018 to April 17, 2018. Patient was noted to have septic emboli to lungs as well as the spleen with infarcts. Patient was admitted under a different name Renea Lawson during that admission. He had a left knee arthrotomy with irrigation and debridement of the septic arthritis during his hospitalization. Once his acute sepsis was resolved and patient responded to Ancef IV patient was discharged to the intermediate system. Patient reports that on April 18, 2018 he was released from the intermediate system and that currently does not have any primary care physician and therefore presented to the emergency department for completion of his IV antibiotic therapy. He was found to have MV and TV vegetations. Also had surgery for L septic knee. Has evidence of possible SI joint infection/inflammation on MRI. Initial plan was to complete Abx Rx until May 22 Notes reviewed Afebrile Overall much improved compared to when I saw him during his last admission Has been ambulating with walker, working with PT Flexion of his L knee to 90 degrees Not SOB No diarrhea No rash or itching One (+) BC on admission with Staph hominis PICC has been removed Antibiotics: Ancef Lines: PIV - Line site ok Past Medical History: reviewed Allergies/Adverse Reactions: Allergies No Known Allergies Allergy (Unverified 04/19/18 15:29) Objective Vital Signs 05/02/18 14:40 05/02/18 16:00 05/02/18 18:43 Temperature 97.8 F Pulse Rate 117 H 99 H 100 H Respiratory Rate 18 Blood Pressure 109/65 Pulse Oximetry 100 05/02/18 20:00 05/03/18 00:00 05/03/18 04:00 Temperature 98.0 F 97.6 F 98.1 F Pulse Rate 115 H 129 H 123 H Respiratory Rate 20 18 18 Blood Pressure 108/68 125/71 104/68 Pulse Oximetry 100 100 99 05/03/18 08:00 Temperature 97.3 F L Pulse Rate 107 H Respiratory Rate 18 Blood Pressure 121/73 Pulse Oximetry 100 Intake & Output 05/02/18 05/03/18 05/03/18 18:59 06:59 18:59 Intake Total 200 / 200 200 / 200 100 / 100 Output Total 600 / 600 Balance -400 / -400 200 / 200 100 / 100 Intake: IV 200 / 200 200 / 200 100 / 100 Ancef Inj 2,000 MG In NS Inj 80 200 / 200 200 / 200 100 / 100 ML @ 200 mls/hr IV.SIG Q6H [facility]ON[facility]ES Rx#:[id number] Output: Urine 600 / 600 Other: Date of Last Bowel Movement 04/30/18 04/30/18 Lab - Hematology Results 05/02/18 05:21 WBC 8.8 RBC 3.27 L Hgb 8.5 L Hct 25.8 L MCV 79.0 L MCH 26.0 L MCHC 32.9 RDW 16.1 Plt Count 472 H MPV 6.2 L Lab - Chemistry Results 05/02/18 05:21 Sodium 139 Potassium 4.2 Chloride 101 Carbon Dioxide 27.2 Anion Gap 11 BUN 18 Creatinine 0.73 Estimated GFR Greater than 89 Random Glucose 81 Calcium 9.1 Imaging: ITS Impressions Abdomen/Pelvis CT 04/20/18 00:00 CONCLUSION: 1. Multiple wedge-shaped perfusion defects involving the spleen suggestive of probable splenic infarcts. 2. Hepatosplenomegaly. 3. Peripheral cortical defects involving the kidneys bilaterally suggesting possible renal infarcts. 4. Some free fluid within the cul-de-sac. 5. Scattered cavitary lesions within the lungs which are described in detail on the CT of the chest report and may represent septic emboli or cavitary metastases. 6. Tiny bilateral pleural effusions with adjacent bibasilar atelectatic changes. Chest CT 04/20/18 00:00 CONCLUSION: 1. Multiple cavitary lesions bilaterally which could be consistent with septic emboli or cavitary metastases. Clinical correlation is recommended. 2. Multiple wedge-shaped areas of decreased perfusion within the spleen consistent with possible splenic infarcts. 3. Hepatosplenomegaly. 4. Tiny bilateral pleural effusions. 5. Bibasilar atelectasis. Physical Exam: GENERAL: Well-nourished well-developed, not in acute distress SKIN: Cool and dry, no generalized rash HEAD: Atraumatic. Normocephalic. No temporal or scalp tenderness. EYES: Pupils equal round and reactive. Scleral icterus. No injection or drainage. No petechia ENT: Nothing abnormal detected NECK: Trachea midline. Supple, nontender, no meningeal signs. CARDIOVASCULAR: HS audible. RESPIRATORY: Clear to auscultation bilaterally. GASTROINTESTINAL: Abdomen soft nontender. MUSCULOSKELETAL: Extremities without clubbing, cyanosis. Healed incision L knee , flexion 90 degrees NEUROLOGICAL: Alert oriented 3. Nonfocal. Psych cooperative IV line sites ok. 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 Follow blood cultures Monitor progress Difficult discharge since patient homeless, has known IVDU
[2018-05-04] MEDS: CEFAZOLIN IV.SIG SCH ×6 (05:00→19:06)
[2018-05-04] MEDS: SODIUM CHLORIDE IV.SIG SCH ×6 (05:00→19:06)
[2018-05-04] MEDS: Ferrous Sulfate 325 MG Tablet PO SCH (08:58)
[2018-05-04] MEDS: Metoprolol Tartrate 25 MG Tablet PO SCH ×2 (08:58→20:36)
[2018-05-04] MEDS: Senna/Docusate Sodium 8.6/50 MG Tablet PO SCH ×2 (08:59→20:36)
--- NOTE | 2018-05-04 19:04 | P.PNIM ---
Subjective Interval history: Patient currently does not have any complaints. He is tolerating a p.o. diet. He is able to ambulate and walks with a limp. Physical Exam Vital signs: Vital Signs 05/03/18 19:51 05/03/18 20:00 05/04/18 00:00 Temperature 97.6 F 97.9 F Pulse Rate 119 H 117 H 108 H Respiratory Rate 18 17 Blood Pressure 121/79 109/68 Pulse Oximetry 95 100 05/04/18 04:00 05/04/18 05:06 05/04/18 06:00 Temperature 97.9 F Pulse Rate 107 H 110 H 107 H Respiratory Rate 16 Blood Pressure 101/59 L Pulse Oximetry 100 05/04/18 08:00 05/04/18 12:00 05/04/18 16:00 Temperature 98.1 F 98.1 F 98.2 F Pulse Rate 113 H 101 H 113 H Respiratory Rate 21 20 20 Blood Pressure 115/62 99/55 L 119/61 Pulse Oximetry 98 99 99 Intake & Output 05/04/18 05/04/18 05/05/18 06:59 18:59 06:59 Intake Total 560 / 560 1060 / 1060 Output Total 1350 / 1350 1000 / 1000 Balance -790 / -790 60 / 60 Weight 57.3 kg Intake: IV 200 / 200 100 / 100 Ancef Inj 2,000 MG In NS Inj 80 200 / 200 100 / 100 ML @ 200 mls/hr IV.SIG Q6H [facility] Rx#:[id number] Oral 360 / 360 960 / 960 Output: Urine 1350 / 1350 1000 / 1000 Other: Date of Last Bowel Movement 05/02/18 # Bowel Movements 0 Narrative: General patient in no acute distress HEENT extraocular movements are intact, clear oropharyngeal mucosa, no JVD Cardiovascular S1-S2 audible Respiratory clear to auscultation bilaterally Abdomen soft, nontender, nondistended, normal bowel sounds Extremities no edema 2+ distal pulses in bilateral upper and lower extremities, well-healed scar of the left knee. No signs of infection. Neuro patient can move all 4 extremities sensation is intact bilaterally. Results - Labs CBC & Chem 7: 05/02/18 05:21 05/02/18 05:21 Assessment and Plan - Plan This patient is a 32-year-old male with a history of IV drug abuse. The patient states that he uses IV heroin. 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 He also had septic emboli to the lung and spleen from the endocarditis. [facility] and received [facility] while in detention and has now returned to our facility for treatment of infective endocarditis. Sepsis, secondary to MSSA infective endocarditis Patient is tachycardic, no fevers, blood pressure stable. Repeat blood cultures are negative. He will be continued on IV Ancef until 05/22/2018 as per infectious disease recommendations. Patient has a history of IV drug use and will need IV antibiotics in hospital. Septic left knee s/p left knee arthrotomy with irrigation and debridement, performed 3 weeks ago Last seen by orthopedics on April 17, surgical wound has healed, there are no signs of infections. He is tolerating physical therapy without any significant difficulties. Patient is ambulatory and walks with a limp Continue physical therapy, encourage ambulation DVT Prophylaxis Patient is ambulating
[2018-05-05] MEDS: SODIUM CHLORIDE IV.SIG SCH ×8 (00:35→17:23)
[2018-05-05] MEDS: CEFAZOLIN IV.SIG SCH ×8 (00:35→17:23)
[2018-05-05] MEDS: Metoprolol Tartrate 25 MG Tablet PO SCH ×2 (10:06→21:11)
[2018-05-05] MEDS: Senna/Docusate Sodium 8.6/50 MG Tablet PO SCH ×2 (10:06→21:11)
[2018-05-05] MEDS: Ferrous Sulfate 325 MG Tablet PO SCH (10:06)
--- NOTE | 2018-05-05 10:10 | P.PNID ---
Subjective Remarks: Mr. Garcia is a 32-year-old male with past medical history significant for MSSA endocarditis for which she was admitted recently from March 29, 2018 to April 17, 2018. Patient was noted to have septic emboli to lungs as well as the spleen with infarcts. Patient was admitted under a different name Renea Lawson during that admission. He had a left knee arthrotomy with irrigation and debridement of the septic arthritis during his hospitalization. Once his acute sepsis was resolved and patient responded to Ancef IV patient was discharged to the group home system. Patient reports that on April 18, 2018 he was released from the group home system and that currently does not have any primary care physician and therefore presented to the emergency department for completion of his IV antibiotic therapy. He was found to have MV and TV vegetations. Also had surgery for L septic knee. Has evidence of possible SI joint infection/inflammation on MRI. Initial plan was to complete Abx Rx until May 22 Notes reviewed Afebrile Overall improving Has been ambulating with walker, working with PT Not SOB No diarrhea No rash or itching One (+) BC on admission with Staph hominis PICC has been removed Antibiotics: Ancef Lines: PIV - Line site ok Past Medical History: reviewed Allergies/Adverse Reactions: Allergies No Known Allergies Allergy (Unverified 04/19/18 15:29) Objective Vital Signs 05/04/18 12:00 05/04/18 16:00 05/04/18 20:00 Temperature 98.1 F 98.2 F 98.8 F Pulse Rate 101 H 113 H 116 H Respiratory Rate 20 20 18 Blood Pressure 99/55 L 119/61 114/69 Pulse Oximetry 99 99 100 05/05/18 00:00 05/05/18 04:00 05/05/18 08:00 Temperature 98.6 F 98.2 F 98.1 F Pulse Rate 118 H 110 H 109 H Respiratory Rate 18 18 21 Blood Pressure 108/64 110/64 109/58 L Pulse Oximetry 99 99 99 Intake & Output 05/04/18 05/05/18 05/05/18 18:59 06:59 18:59 Intake Total 1060 / 1060 1140 / 1140 Output Total 1000 / 1000 2850 / 2850 Balance 60 / 60 -1710 / -1710 Weight 58 kg Intake: IV 100 / 100 300 / 300 Ancef Inj 2,000 MG In NS Inj 80 100 / 100 300 / 300 ML @ 200 mls/hr IV.SIG Q6H [facility] Rx#:[id number] Oral 960 / 960 840 / 840 Output: Urine 1000 / 1000 2850 / 2850 Other: Date of Last Bowel Movement 05/02/18 # Bowel Movements 0 Imaging: ITS Impressions Abdomen/Pelvis CT 04/20/18 00:00 CONCLUSION: 1. Multiple wedge-shaped perfusion defects involving the spleen suggestive of probable splenic infarcts. 2. Hepatosplenomegaly. 3. Peripheral cortical defects involving the kidneys bilaterally suggesting possible renal infarcts. 4. Some free fluid within the cul-de-sac. 5. Scattered cavitary lesions within the lungs which are described in detail on the CT of the chest report and may represent septic emboli or cavitary metastases. 6. Tiny bilateral pleural effusions with adjacent bibasilar atelectatic changes. Chest CT 04/20/18 00:00 CONCLUSION: 1. Multiple cavitary lesions bilaterally which could be consistent with septic emboli or cavitary metastases. Clinical correlation is recommended. 2. Multiple wedge-shaped areas of decreased perfusion within the spleen consistent with possible splenic infarcts. 3. Hepatosplenomegaly. 4. Tiny bilateral pleural effusions. 5. Bibasilar atelectasis. Physical Exam: GENERAL: Awakens easily from sleep, not in acute distress SKIN: Cool and dry, no generalized rash HEAD: Atraumatic. Normocephalic. No temporal or scalp tenderness. EYES: Pupils equal round and reactive. Scleral icterus. No injection or drainage. No petechia ENT: Nothing abnormal detected NECK: Trachea midline. Supple, nontender, no meningeal signs. CARDIOVASCULAR: HS audible. RESPIRATORY: Clear to auscultation bilaterally. GASTROINTESTINAL: Abdomen soft nontender. MUSCULOSKELETAL: Extremities without clubbing, cyanosis. Healed incision L knee , flexion 90 degrees NEUROLOGICAL: Alert oriented 3. Nonfocal. Psych cooperative IV line sites ok. 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
--- NOTE | 2018-05-05 17:13 | P.PNIM ---
Subjective Interval history: Patient is lying in bed comfortably. He currently does not have any complaints. Physical Exam Vital signs: Vital Signs 05/04/18 20:00 05/05/18 00:00 05/05/18 04:00 Temperature 98.8 F 98.6 F 98.2 F Pulse Rate 116 H 118 H 110 H Respiratory Rate 18 Blood Pressure 114/69 108/64 110/64 Pulse Oximetry 100 99 99 05/05/18 08:00 05/05/18 12:00 05/05/18 16:00 Temperature 98.1 F 97.9 F 97.9 F Pulse Rate 105 H 104 H 109 H Respiratory Rate 20 Blood Pressure 109/58 L 106/65 108/58 L Pulse Oximetry 99 99 99 Intake & Output 05/04/18 05/05/18 05/05/18 18:59 06:59 18:59 Intake Total 1060 / 1060 1140 / 1140 100 / 100 Output Total 1000 / 1000 2850 / 2850 Balance 60 / 60 -1710 / -1710 100 / 100 Weight 58 kg Intake: IV 100 / 100 300 / 300 100 / 100 Ancef Inj 2,000 MG In NS Inj 80 100 / 100 300 / 300 100 / 100 ML @ 200 mls/hr IV.SIG Q6H [facility]ON[facility] Rx#:[id number] Oral 960 / 960 840 / 840 Output: Urine 1000 / 1000 2850 / 2850 Other: Date of Last Bowel Movement 05/02/18 # Bowel Movements 0 Narrative: General patient in no acute distress HEENT extraocular movements are intact, clear oropharyngeal mucosa, no JVD Cardiovascular S1-S2 audible Respiratory clear to auscultation bilaterally Abdomen soft, nontender, nondistended, normal bowel sounds Extremities no edema 2+ distal pulses in bilateral upper and lower extremities, well-healed scar of the left knee. No signs of infection. Neuro patient can move all 4 extremities sensation is intact bilaterally. Results - Labs CBC & Chem 7: 05/02/18 05:21 05/02/18 05:21 Assessment and Plan - Plan This patient is a 32-year-old male with a history of IV drug abuse. The patient states that he uses IV heroin. 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 He also had septic emboli to the lung and spleen from the endocarditis. He subsequently went to skilled nursing and received IV antibiotics while in skilled nursing and has now returned to our facility for treatment of infective endocarditis. Sepsis, secondary to MSSA infective endocarditis Patient is tachycardic, no fevers, blood pressure stable. Repeat blood cultures are negative. He will be continued on IV Ancef until 05/22/2018 as per infectious disease recommendations. Patient has a history of IV drug use and will need IV antibiotics in hospital. Continue IV antibiotics. No change in therapy. Septic left knee s/p left knee arthrotomy with irrigation and debridement, performed 3 weeks ago Last seen by orthopedics on April 17, surgical wound has healed, there are no signs of infections. He is tolerating physical therapy without any significant difficulties. Patient is ambulatory and walks with a limp Continue PT DVT Prophylaxis Patient is ambulating
[2018-05-06] MEDS: SODIUM CHLORIDE IV.SIG SCH ×10 (00:37→23:59)
[2018-05-06] MEDS: CEFAZOLIN IV.SIG SCH ×10 (00:37→23:59)
[2018-05-06 05:45] LABS: Chloride 99 meq/L (98-107); Glomerular Filtration Rate Greater Than 89 mL/min (>89); Glucose,Random 86 mg/dL (74-106); Potassium 4.3 meq/L (3.5-5.1); Sodium 138 meq/L (136-145)
[2018-05-06 05:46] LABS: Anion Gap 11 meq/L (5-15); Blood Urea Nitrogen 17 mg/dL (7-18); Calcium 8.9 mg/dL (8.5-10.1); Carbon Dioxide 28.3 meq/L (21.0-32.0); Magnesium 2.1 mg/dL (1.5-2.5)
[2018-05-06] MEDS: Senna/Docusate Sodium 8.6/50 MG Tablet PO SCH ×2 (08:45→21:04)
[2018-05-06] MEDS: Ferrous Sulfate 325 MG Tablet PO SCH (08:45)
[2018-05-06] MEDS: Metoprolol Tartrate 25 MG Tablet PO SCH ×2 (08:45→21:02)
--- NOTE | 2018-05-06 18:12 | P.PNIM ---
Subjective Interval history: Patient is laying down in bed. He does not have any complaints. Physical Exam Vital signs: Vital Signs 05/05/18 20:00 05/06/18 00:00 05/06/18 04:00 Temperature 98.8 F 98.1 F 98.2 F Pulse Rate 123 H 122 H 120 H Respiratory Rate 18 18 18 Blood Pressure 100/60 115/70 103/63 Pulse Oximetry 100 97 99 05/06/18 08:00 05/06/18 12:00 05/06/18 16:00 Temperature 97.3 F L 97.8 F 97.7 F Pulse Rate 99 H 99 H 93 H Respiratory Rate 18 18 18 Blood Pressure 103/60 116/71 97/60 L Pulse Oximetry 99 99 94 L Intake & Output 05/05/18 05/06/18 05/06/18 18:59 06:59 18:59 Intake Total 1160 / 1160 1540 / 1540 200 / 200 Output Total 1000 / 1000 2650 / 2650 Balance 160 / 160 -1110 / -1110 200 / 200 Intake: IV 200 / 200 100 / 100 200 / 200 Ancef Inj 2,000 MG In NS Inj 80 200 / 200 100 / 100 200 / 200 ML @ 200 mls/hr IV.SIG Q6H [facility]ON[facility] Rx#:[id number] Oral 960 / 960 1440 / 1440 Output: Urine 1000 / 1000 2650 / 2650 Other: Date of Last Bowel Movement 05/02/18 # Bowel Movements 0 Narrative: General patient in no acute distress HEENT extraocular movements are intact, clear oropharyngeal mucosa, no JVD Cardiovascular S1-S2 audible Respiratory clear to auscultation bilaterally Abdomen soft, nontender, nondistended, normal bowel sounds Extremities no edema 2+ distal pulses in bilateral upper and lower extremities, well-healed scar of the left knee. No signs of infection. Neuro patient can move all 4 extremities sensation is intact bilaterally. Results - Labs CBC & Chem 7: 05/02/18 05:21 05/06/18 03:42 Laboratory Results - last 24 hr 05/06/18 03:42 Sodium 138 Potassium 4.3 Chloride 99 Carbon Dioxide 28.3 Anion Gap 11 BUN 17 Creatinine 0.78 Estimated GFR Greater than 89 Random Glucose 86 Calcium 8.9 Magnesium 2.1 Assessment and Plan - Plan This patient is a 32-year-old male with a history of IV drug abuse. The patient states that he uses IV heroin. 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 He also had septic emboli to the lung and spleen from the endocarditis. He subsequently went to [facility] and received IV antibiotics while in [facility] and has now returned to our facility for treatment of infective endocarditis. Sepsis, secondary to MSSA infective endocarditis Patient is tachycardic, no fevers, blood pressure stable. Repeat blood cultures are negative. He will be continued on IV Ancef until 05/22/2018 as per infectious disease recommendations. Patient has a history of IV drug use and will need IV antibiotics in hospital. No change in the patient's current medication regimen. Continue current therapy with IV antibiotics. Septic left knee s/p left knee arthrotomy with irrigation and debridement, performed 3 weeks ago Last seen by orthopedics on April 17, surgical wound has healed, there are no signs of infections. He is tolerating physical therapy without any significant difficulties. Patient is ambulatory and walks with a limp Continue PT DVT Prophylaxis Patient is ambulating
[2018-05-07] MEDS: SODIUM CHLORIDE IV.SIG SCH ×8 (05:21→23:39)
[2018-05-07] MEDS: CEFAZOLIN IV.SIG SCH ×8 (05:21→23:39)
[2018-05-07] MEDS: Ferrous Sulfate 325 MG Tablet PO SCH (08:53)
[2018-05-07] MEDS: Metoprolol Tartrate 25 MG Tablet PO SCH ×2 (08:53→21:19)
[2018-05-07] MEDS: Senna/Docusate Sodium 8.6/50 MG Tablet PO SCH ×2 (08:54→20:06)
--- NOTE | 2018-05-07 15:26 | P.PNIM ---
Subjective Interval history: Patient does not have any complaints today. Physical Exam Vital signs: Vital Signs 05/06/18 16:00 05/06/18 20:00 05/07/18 00:00 Temperature 97.7 F 98.0 F 97.8 F Pulse Rate 93 H 123 H 112 H Respiratory Rate 18 20 20 Blood Pressure 97/60 L 116/80 108/74 Pulse Oximetry 94 L 96 97 05/07/18 04:00 05/07/18 08:00 05/07/18 12:00 Temperature 98.9 F 99 F Pulse Rate 123 H 124 H 100 H Respiratory Rate 18 20 Blood Pressure 107/80 112/64 Pulse Oximetry 96 100 Intake & Output 05/06/18 05/07/18 05/07/18 18:59 06:59 18:59 Intake Total 1020 / 1020 200 / 200 100 / 100 Output Total 800 / 800 Balance 220 / 220 200 / 200 100 / 100 Intake: IV 300 / 300 200 / 200 100 / 100 Ancef Inj 2,000 MG In NS Inj 80 300 / 300 200 / 200 100 / 100 ML @ 200 mls/hr IV.SIG Q6H [facility] Rx#:[id number] Oral 720 / 720 Output: Urine 800 / 800 Other: Date of Last Bowel Movement 05/02/18 05/02/18 Narrative: General patient in no acute distress HEENT extraocular movements are intact, clear oropharyngeal mucosa, no JVD Cardiovascular S1-S2 audible Respiratory clear to auscultation bilaterally Abdomen soft, nontender, nondistended, normal bowel sounds Extremities no edema 2+ distal pulses in bilateral upper and lower extremities, well-healed scar of the left knee. No signs of infection. Neuro patient can move all 4 extremities sensation is intact bilaterally. Results - Labs CBC & Chem 7: 05/02/18 05:21 05/06/18 03:42 Assessment and Plan - Plan This patient is a 32-year-old male with a history of IV drug abuse. The patient states that he uses IV heroin. 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 He also had septic emboli to the lung and spleen from the endocarditis. He subsequently went to [facility] and received IV antibiotics while in [facility] and has now returned to our facility for treatment of infective endocarditis. Sepsis, secondary to MSSA infective endocarditis The patient does not have any complaints today. He feels he is getting stronger with physical therapy. Patient is tachycardic, no fevers, blood pressure stable. Repeat blood cultures are negative. He will be continued on IV Ancef until 05/22/2018 as per infectious disease recommendations. Patient has a history of IV drug use and will need IV antibiotics in hospital. Septic left knee s/p left knee arthrotomy with irrigation and debridement, performed nearly 4 weeks ago Last seen by orthopedics on April 17, surgical wound has healed, there are no signs of infections. He is tolerating physical therapy without any significant difficulties. Patient is ambulatory and walks with a limp Continue PT DVT Prophylaxis Patient is ambulating
[2018-05-08] MEDS: CEFAZOLIN IV.SIG SCH ×6 (05:35→18:01)
[2018-05-08] MEDS: SODIUM CHLORIDE IV.SIG SCH ×6 (05:35→18:01)
[2018-05-08 05:44] LABS: Baso # (Auto) 0.1 th/mm3 (0.0-0.2); Baso % (Auto) 0.7 % (0.0-2.0); Eos # (Auto) 0.2 th/mm3 (0.0-0.4); Eos % (Auto) 1.7 % (0.0-4.0); Hematocrit 27.6 % (39.0-51.0); Hemoglobin 9.3 gm/dL (13.0-17.0); Lymph # (Auto) 1.8 th/mm3 (1.0-4.8); Lymph % (Auto) 16.1 % (9.0-44.0); Mean Corpuscular HGB Conc 33.7 % (32.0-36.0); Mean Corpuscular Hemoglobin 26.8 pg (27.0-34.0); Mean Corpuscular Volume 79.5 fL (80.0-100.0); Mean Platelet Volume 6.3 fL (7.0-11.0); Mono # (Auto) 0.8 th/mm3 (0.0-0.9); Mono % (Auto) 7.4 % (0.0-8.0); Neut # (Auto) 8.2 th/mm3 (1.8-7.7); Neut % (Auto) 74.1 % (16.0-70.0); Platelet Count 515 th/mm3 (150-450); Red Blood Count 3.47 mil/mm3 (4.50-5.90); Red Cell Distribution Width 16.6 % (11.6-17.2)
[2018-05-08] MEDS: Ferrous Sulfate 325 MG Tablet PO SCH (08:36)
[2018-05-08] MEDS: Senna/Docusate Sodium 8.6/50 MG Tablet PO SCH ×2 (08:36→22:07)
[2018-05-08] MEDS: Metoprolol Tartrate 25 MG Tablet PO SCH ×2 (09:46→22:07)
--- NOTE | 2018-05-08 11:47 | P.PNIM ---
Subjective Interval history: Patient reports he is feeling ok today except for being tired. Physical Exam Vital signs: Vital Signs 05/07/18 12:00 05/07/18 16:00 05/07/18 20:00 Temperature 98.3 F 98 F 99 F Pulse Rate 102 H 109 H 128 H Respiratory Rate 20 20 20 Blood Pressure 96/52 L 102/64 109/75 Pulse Oximetry 95 99 100 05/07/18 21:00 05/07/18 23:52 05/08/18 00:00 Temperature 98.4 F 97.8 F Pulse Rate 131 H 114 H 108 H Respiratory Rate 18 18 Blood Pressure 113/58 L 104/85 Pulse Oximetry 98 99 05/08/18 04:00 05/08/18 08:00 Temperature 96.8 F L 99 F Pulse Rate 107 H 127 H Respiratory Rate 18 18 Blood Pressure 110/76 106/70 Pulse Oximetry 100 98 Intake & Output 05/07/18 05/08/18 05/08/18 18:59 06:59 18:59 Intake Total 920 / 920 800 / 800 Output Total 1500 / 1500 1000 / 1000 Balance -580 / -580 -200 / -200 Weight 54.2 kg Intake: IV 200 / 200 200 / 200 Ancef Inj 2,000 MG In NS Inj 80 200 / 200 200 / 200 ML @ 200 mls/hr IV.SIG Q6H [facility]ON[facility] Rx#:[id number] Oral 720 / 720 600 / 600 Output: Urine 1500 / 1500 1000 / 1000 Other: Date of Last Bowel Movement 05/02/18 05/02/18 Narrative: General patient in no acute distress HEENT extraocular movements are intact, clear oropharyngeal mucosa, no JVD Cardiovascular S1-S2 audible Respiratory clear to auscultation bilaterally Abdomen soft, nontender, nondistended, normal bowel sounds Extremities no edema 2+ distal pulses in bilateral upper and lower extremities, well-healed scar of the left knee. No signs of infection. Neuro patient can move all 4 extremities sensation is intact bilaterally. Results - Labs CBC & Chem 7: 05/08/18 05:01 05/06/18 03:42 Laboratory Results - last 24 hr 05/08/18 05:01 WBC 11.0 RBC 3.47 L Hgb 9.3 L Hct 27.6 L MCV 79.5 L MCH 26.8 L MCHC 33.7 RDW 16.6 Plt Count 515 H MPV 6.3 L Neut % (Auto) 74.1 H Lymph % (Auto) 16.1 Patrick % (Auto) 7.4 Eos % (Auto) 1.7 Baso % (Auto) 0.7 Neut # (Auto) 8.2 H Lymph # (Auto) 1.8 Patrick # (Auto) 0.8 Eos # (Auto) 0.2 Baso # (Auto) 0.1 WBC Differential . Differential Comment Auto diff final Assessment and Plan - Plan 32-year-old male with a history of IV drug abuse. The patient states that he uses IV heroin. 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 He also had septic emboli to the lung and spleen from the endocarditis. He subsequently went to [facility] and received IV antibiotics while in [facility] and has now returned to our facility for treatment of infective endocarditis. Sepsis, secondary to MSSA infective endocarditis He will be continued on IV Ancef until 05/22/2018 as per infectious disease recommendations. Patient has a history of IV drug use and will need IV antibiotics in hospital. Septic left knee s/p left knee arthrotomy with irrigation and debridement, performed nearly 4 weeks ago Last seen by orthopedics on April 17, surgical wound has healed, there are no signs of infections. He is tolerating physical therapy without any significant difficulties. Patient is ambulatory and walks with a limp Continue PT DVT Prophylaxis Patient is ambulating
[2018-05-09] MEDS: CEFAZOLIN IV.SIG SCH ×8 (00:32→18:12)
[2018-05-09] MEDS: SODIUM CHLORIDE IV.SIG SCH ×8 (00:32→18:12)
[2018-05-09] MEDS: Senna/Docusate Sodium 8.6/50 MG Tablet PO SCH ×2 (09:14→21:28)
[2018-05-09] MEDS: Ferrous Sulfate 325 MG Tablet PO SCH (09:14)
[2018-05-09] MEDS: Metoprolol Tartrate 25 MG Tablet PO SCH ×2 (09:17→22:35)
--- NOTE | 2018-05-09 16:18 | P.PNIM ---
Subjective Interval history: Patient reports is feeling okay. No new issues. Pain is controlled. Physical Exam Vital signs: Vital Signs 05/08/18 20:00 05/09/18 00:00 05/09/18 04:00 Temperature 97.8 F 98.0 F 99.3 F Pulse Rate 122 H 124 H 121 H Respiratory Rate 18 18 18 Blood Pressure 106/66 106/70 112/66 Pulse Oximetry 98 100 99 05/09/18 08:00 05/09/18 12:00 Temperature 99.3 F 98.0 F Pulse Rate 121 H 105 H Respiratory Rate 18 Blood Pressure 126/71 101/60 Pulse Oximetry 98 100 Intake & Output 05/08/18 05/09/18 05/09/18 18:59 06:59 18:59 Intake Total 1040 / 1040 200 / 200 100 / 100 Output Total 1300 / 1300 1550 / 1550 Balance -260 / -260 -1350 / -1350 100 / 100 Intake: IV 200 / 200 200 / 200 100 / 100 Ancef Inj 2,000 MG In NS Inj 80 200 / 200 200 / 200 100 / 100 ML @ 200 mls/hr IV.SIG Q6H [facility] Rx#:[id number] Oral 840 / 840 Output: Urine 1300 / 1300 1550 / 1550 Other: Date of Last Bowel Movement 05/02/18 05/08/18 05/08/18 # Bowel Movements 0 Narrative: General patient in no acute distress HEENT extraocular movements are intact, clear oropharyngeal mucosa, no JVD Cardiovascular S1-S2 audible Respiratory clear to auscultation bilaterally Abdomen soft, nontender, nondistended, normal bowel sounds Extremities no edema 2+ distal pulses in bilateral upper and lower extremities, well-healed scar of the left knee. No signs of infection. Neuro: patient can move all 4 extremities sensation is intact bilaterally. Results - Labs CBC & Chem 7: 05/08/18 05:01 05/06/18 03:42 Assessment and Plan - Plan 32-year-old male with a history of IV drug abuse. The patient states that he uses IV heroin. 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 He also had septic emboli to the lung and spleen from the endocarditis. [facility] and received [facility] antibiotics while in detention and has now returned to our facility for treatment of infective endocarditis. Sepsis, secondary to MSSA infective endocarditis He will be continued on IV Ancef until 05/22/2018 as per infectious disease recommendations. Patient has a history of IV drug use and will need IV antibiotics in hospital. Septic left knee s/p left knee arthrotomy with irrigation and debridement, performed nearly 4 weeks ago Last seen by orthopedics on April 17, surgical wound has healed, there are no signs of infections. He is tolerating physical therapy without any significant difficulties. Patient is ambulatory and walks with a limp Continue rehabilitation efforts with PT. DVT Prophylaxis Patient is ambulating
[2018-05-10] MEDS: CEFAZOLIN IV.SIG SCH ×8 (00:46→19:43)
[2018-05-10] MEDS: SODIUM CHLORIDE IV.SIG SCH ×8 (00:46→19:43)
[2018-05-10] MEDS: Ferrous Sulfate 325 MG Tablet PO SCH (09:44)
[2018-05-10] MEDS: Metoprolol Tartrate 25 MG Tablet PO SCH ×2 (09:44→20:41)
[2018-05-10] MEDS: Senna/Docusate Sodium 8.6/50 MG Tablet PO SCH ×2 (09:44→20:40)
--- NOTE | 2018-05-10 17:12 | P.PNIM ---
Subjective Interval history: Discussed with RN. Patient has been tachycardic. He reports he is feeling okay. Physical Exam Vital signs: Vital Signs 05/09/18 20:00 05/09/18 22:00 05/10/18 00:00 Temperature 99.6 F 98.3 F Pulse Rate 132 H 114 H Respiratory Rate 16 18 16 Blood Pressure 109/62 99/60 L Pulse Oximetry 100 99 05/10/18 04:00 05/10/18 08:00 05/10/18 12:00 Temperature 97.3 F L 98.0 F 98.4 F Pulse Rate 101 H 108 H 117 H Respiratory Rate 16 16 20 Blood Pressure 98/62 L 104/66 111/60 Pulse Oximetry 100 100 99 05/10/18 16:00 Temperature 97.5 F L Pulse Rate 110 H Respiratory Rate 18 Blood Pressure 110/64 Pulse Oximetry 99 Intake & Output 05/09/18 05/10/18 05/10/18 18:59 06:59 18:59 Intake Total 920 / 920 920 / 920 100 / 100 Output Total 1200 / 1200 Balance -280 / -280 920 / 920 100 / 100 Weight 57.7 kg Intake: IV 200 / 200 200 / 200 100 / 100 Ancef Inj 2,000 MG In NS Inj 80 200 / 200 200 / 200 100 / 100 ML @ 200 mls/hr IV.SIG Q6H [facility] Rx#:[id number] Oral 720 / 720 720 / 720 Output: Urine 1200 / 1200 Other: # Voids 1,400 Date of Last Bowel Movement 05/08/18 05/08/18 # Bowel Movements 0 Narrative: General patient in no acute distress HEENT extraocular movements are intact, clear oropharyngeal mucosa, no JVD Cardiovascular S1-S2 audible. Heart rate in the 90s Respiratory clear to auscultation bilaterally Abdomen soft, nontender, nondistended, normal bowel sounds Extremities no edema 2+ distal pulses in bilateral upper and lower extremities, well-healed scar of the left knee. No signs of infection. Neuro: patient can move all 4 extremities sensation is intact bilaterally. Results - Labs CBC & Chem 7: 05/08/18 05:01 05/06/18 03:42 Assessment and Plan - Plan 32-year-old male with a history of IV drug abuse. The patient states that he uses IV heroin. 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 He also had septic emboli to the lung and spleen from the endocarditis. He subsequently went to [facility] and received IV antibiotics while in [facility] and has now returned to our facility for treatment of infective endocarditis. Sepsis, secondary to MSSA infective endocarditis He will be continued on IV Ancef until 05/22/2018 as per infectious disease recommendations. Patient has a history of IV drug use and will need IV antibiotics in hospital. Septic left knee s/p left knee arthrotomy with irrigation and debridement, performed nearly 4 weeks ago Last seen by orthopedics on April 17, surgical wound has healed, there are no signs of infections. He is tolerating physical therapy without any significant difficulties. Patient is ambulatory and walks with a limp Continue rehabilitation efforts with PT. Sinus tachycardia: -Continue metoprolol. Okay to give for SBP greater than 100 DVT Prophylaxis Patient is ambulating
[2018-05-11] MEDS: SODIUM CHLORIDE IV.SIG SCH ×10 (00:09→23:26)
[2018-05-11] MEDS: CEFAZOLIN IV.SIG SCH ×10 (00:09→23:26)
[2018-05-11] MEDS: Ferrous Sulfate 325 MG Tablet PO SCH (09:05)
[2018-05-11] MEDS: Metoprolol Tartrate 25 MG Tablet PO SCH ×2 (09:06→20:58)
[2018-05-11] MEDS: Senna/Docusate Sodium 8.6/50 MG Tablet PO SCH ×2 (09:07→20:58)
[2018-05-11] MEDS ORDERED: Carboxymethylcellulose 0.5% Opth Drops 15 ML Bottle EACH EYE PRN ×2 (14:07→14:09)
--- NOTE | 2018-05-11 14:20 | P.PNIM ---
Subjective Interval history: Patient reports he is feeling ok. No new complaints today. Physical Exam Vital signs: Vital Signs 05/10/18 16:00 05/10/18 20:00 05/11/18 00:00 Temperature 97.5 F L 98.2 F 98 F Pulse Rate 92 H 121 H 113 H Respiratory Rate 18 16 16 Blood Pressure 110/64 109/62 102/62 Pulse Oximetry 99 100 98 05/11/18 04:00 05/11/18 08:00 05/11/18 12:00 Temperature 98 F 98.4 F 98.0 F Pulse Rate 107 H 110 H 108 H Respiratory Rate 16 18 18 Blood Pressure 101/61 110/69 107/56 L Pulse Oximetry 100 100 100 Intake & Output 05/10/18 05/11/18 05/11/18 18:59 06:59 18:59 Intake Total 580 / 580 1500 / 1500 580 / 580 Output Total 1400 / 1400 450 / 450 1000 / 1000 Balance -820 / -820 1050 / 1050 -420 / -420 Weight 56.9 kg Intake: IV 100 / 100 300 / 300 100 / 100 Ancef Inj 2,000 MG In NS Inj 80 100 / 100 300 / 300 100 / 100 ML @ 200 mls/hr IV.SIG Q6H [facility] Rx#:[id number] Oral 480 / 480 1200 / 1200 480 / 480 Output: Urine 1400 / 1400 450 / 450 1000 / 1000 Other: # Bowel Movements 1 0 Narrative: General patient in no acute distress HEENT extraocular movements are intact, clear oropharyngeal mucosa, no JVD Cardiovascular S1-S2 audible. Heart rate in the 90s Respiratory clear to auscultation bilaterally Abdomen soft, nontender, nondistended, normal bowel sounds Extremities no edema 2+ distal pulses in bilateral upper and lower extremities, well-healed scar of the left knee. No signs of infection. Neuro: patient can move all 4 extremities sensation is intact bilaterally. Results - Labs CBC & Chem 7: 05/08/18 05:01 05/06/18 03:42 Assessment and Plan - Plan 32-year-old male with a history of IV drug abuse. The patient states that he uses IV heroin. 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 He also had septic emboli to the lung and spleen from the endocarditis. He subsequently went to nursing home and received IV antibiotics while in nursing home and has now returned to our facility for treatment of infective endocarditis. Sepsis, secondary to MSSA infective endocarditis He will be continued on IV Ancef until 05/22/2018 as per infectious disease recommendations. Patient has a history of IV drug use and will need IV antibiotics in hospital. Continue current treatment. Septic left knee s/p left knee arthrotomy with irrigation and debridement, performed nearly 4 weeks ago Last seen by orthopedics on April 17, surgical wound has healed, there are no signs of infections. He is tolerating physical therapy without any significant difficulties. Patient is ambulatory and walks with a limp Continue rehabilitation efforts with PT. Sinus tachycardia: -Continue metoprolol. Okay to give for SBP greater than 100 DVT Prophylaxis Patient is ambulating
[2018-05-12] MEDS: SODIUM CHLORIDE IV.SIG SCH ×8 (05:40→23:12)
[2018-05-12] MEDS: CEFAZOLIN IV.SIG SCH ×8 (05:40→23:12)
[2018-05-12] MEDS: Metoprolol Tartrate 25 MG Tablet PO SCH (09:10)
[2018-05-12] MEDS: Senna/Docusate Sodium 8.6/50 MG Tablet PO SCH ×2 (09:11→20:05)
[2018-05-12] MEDS: Ferrous Sulfate 325 MG Tablet PO SCH (09:12)
--- NOTE | 2018-05-12 15:00 | P.PNIM ---
Subjective Interval history: Patient reports he is feeling okay. No chest pain. He is working with physical therapy. Tachycardia persisting. Physical Exam Vital signs: Vital Signs 05/11/18 16:00 05/11/18 20:00 05/11/18 23:35 Temperature 97.8 F 98.2 F 98.6 F Pulse Rate 111 H 122 H 110 H Respiratory Rate 16 18 18 Blood Pressure 113/58 L 113/66 109/63 Pulse Oximetry 100 100 98 05/12/18 00:00 05/12/18 04:00 05/12/18 07:39 Temperature 97.9 F 98.6 F Pulse Rate 105 H 107 H 111 H Respiratory Rate 18 16 Blood Pressure 103/57 L 102/75 Pulse Oximetry 100 05/12/18 08:00 05/12/18 12:00 Temperature 98.1 F 97.9 F Pulse Rate 106 H 114 H Respiratory Rate 20 21 Blood Pressure 102/75 104/71 Pulse Oximetry 100 100 Intake & Output 05/11/18 05/12/18 05/12/18 18:59 06:59 18:59 Intake Total 580 / 580 1350 / 1350 100 / 100 Output Total 2049 1550 / 1550 Balance -1470 / -1470 -200 / -200 100 / 100 Weight 58.9 kg Intake: IV 100 / 100 300 / 300 100 / 100 Ancef Inj 2,000 MG In NS Inj 80 100 / 100 300 / 300 100 / 100 ML @ 200 mls/hr IV.SIG Q6H [facility] Rx#:[id number] Oral 480 / 480 1050 / 1050 Output: Urine 2049 1550 / 1550 Other: Date of Last Bowel Movement 05/08/18 # Bowel Movements 0 Narrative: General patient in no acute distress HEENT extraocular movements are intact, clear oropharyngeal mucosa, no JVD Cardiovascular S1-S2 audible. Heart rate in the high 90s Respiratory clear to auscultation bilaterally Abdomen soft, nontender, nondistended, normal bowel sounds Extremities no edema 2+ distal pulses in bilateral upper and lower extremities, well-healed scar of the left knee. No signs of infection. Neuro: patient can move all 4 extremities sensation is intact bilaterally. Results - Labs CBC & Chem 7: 05/08/18 05:01 05/06/18 03:42 Assessment and Plan - Plan 32-year-old male with a history of IV drug abuse. The patient states that he uses IV heroin. 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 He also had septic emboli to the lung and spleen from the endocarditis. He subsequently went to [facility] and received IV antibiotics while in [facility] and has now returned to our facility for treatment of infective endocarditis. Sepsis, secondary to MSSA infective endocarditis He will be continued on IV Ancef until 05/22/2018 as per infectious disease recommendations. Patient has a history of IV drug use and will need IV antibiotics in hospital. Continue current treatment. Septic left knee s/p left knee arthrotomy with irrigation and debridement, performed nearly 4 weeks ago Last seen by orthopedics on April 17, surgical wound has healed, there are no signs of infections. He is tolerating physical therapy without any significant difficulties. Patient is ambulatory and walks with a limp Continue rehabilitation efforts with PT. Sinus tachycardia: -Likely secondary to deconditioning -Continue metoprolol. Increased to 50 mg twice daily DVT Prophylaxis Patient is ambulating
[2018-05-12] MEDS: Metoprolol Tartrate 50 MG Tablet PO SCH (20:05)
[2018-05-13] MEDS: CEFAZOLIN IV.SIG SCH ×8 (06:28→23:25)
[2018-05-13] MEDS: SODIUM CHLORIDE IV.SIG SCH ×8 (06:28→23:25)
[2018-05-13] MEDS: Ferrous Sulfate 325 MG Tablet PO SCH (08:27)
[2018-05-13] MEDS: Metoprolol Tartrate 50 MG Tablet PO SCH ×2 (08:27→20:51)
[2018-05-13] MEDS: Senna/Docusate Sodium 8.6/50 MG Tablet PO SCH ×2 (08:29→20:51)
--- NOTE | 2018-05-13 13:00 | P.PNIM ---
Subjective Interval history: Patient reports he is feeling okay. Denies heart palpitations or chest pain. Tachycardia noted to be mildly improved. Physical Exam Vital signs: Vital Signs 05/12/18 16:00 05/12/18 19:52 05/12/18 20:00 Temperature 98.0 F 97.9 F Pulse Rate 111 H 114 H 112 H Respiratory Rate 22 20 Blood Pressure 102/78 123/68 Pulse Oximetry 100 100 05/13/18 00:00 05/13/18 04:00 05/13/18 08:00 Temperature 98.2 F 98.0 F 97.9 F Pulse Rate 113 H 114 H 107 H Respiratory Rate 17 16 22 Blood Pressure 116/62 107/69 108/68 Pulse Oximetry 100 100 100 05/13/18 12:00 Temperature 97.6 F Pulse Rate 101 H Respiratory Rate 21 Blood Pressure 101/59 L Pulse Oximetry 100 Intake & Output 05/12/18 05/13/18 05/13/18 18:59 06:59 18:59 Intake Total 1160 / 1160 450 / 450 100 / 100 Output Total 900 / 900 1300 / 1300 Balance 260 / 260 -850 / -850 100 / 100 Weight 58.7 kg Intake: IV 200 / 200 100 / 100 100 / 100 Ancef Inj 2,000 MG In NS Inj 80 200 / 200 100 / 100 100 / 100 ML @ 200 mls/hr IV.SIG Q6H [facility] Rx#:[id number] Oral 960 / 960 350 / 350 Output: Urine 900 / 900 1300 / 1300 Other: Date of Last Bowel Movement 05/08/18 Narrative: General patient in no acute distress HEENT extraocular movements are intact, clear oropharyngeal mucosa, no JVD Cardiovascular S1-S2 audible. Heart rate in the high 90s Respiratory clear to auscultation bilaterally Abdomen soft, nontender, nondistended, normal bowel sounds Extremities no edema 2+ distal pulses in bilateral upper and lower extremities, well-healed scar of the left knee. No signs of infection. Neuro: patient can move all 4 extremities sensation is intact bilaterally. Results - Labs CBC & Chem 7: 05/08/18 05:01 05/06/18 03:42 Assessment and Plan - Plan 32-year-old male with a history of IV drug abuse. The patient states that he uses IV heroin. 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 He also had septic emboli to the lung and spleen from the endocarditis. He subsequently went to nursing home and received IV antibiotics while in nursing home and has now returned to our facility for treatment of infective endocarditis. Sepsis, secondary to MSSA infective endocarditis He will be continued on IV Ancef until 05/22/2018 as per infectious disease recommendations. Patient has a history of IV drug use and will need IV antibiotics in hospital. Continue current treatment. Septic left knee s/p left knee arthrotomy with irrigation and debridement, performed nearly 4 weeks ago Last seen by orthopedics on April 17, surgical wound has healed, there are no signs of infections. He is tolerating physical therapy without any significant difficulties. Patient is ambulatory and walks with a limp Continue rehabilitation efforts with PT. Sinus tachycardia: -Likely secondary to deconditioning -Continue with increased dose of metoprolol 50 mg twice daily. Continue to monitor. DVT Prophylaxis Patient is ambulating
[2018-05-14] MEDS: SODIUM CHLORIDE IV.SIG SCH ×8 (05:37→23:00)
[2018-05-14] MEDS: CEFAZOLIN IV.SIG SCH ×8 (05:37→23:00)
[2018-05-14] MEDS: Ferrous Sulfate 325 MG Tablet PO SCH (10:56)
[2018-05-14] MEDS: Senna/Docusate Sodium 8.6/50 MG Tablet PO SCH ×2 (10:57→20:44)
[2018-05-14] MEDS: Metoprolol Tartrate 25 MG Tablet PO SCH ×2 (11:00→20:44)
[2018-05-14] MEDS: Metoprolol Tartrate 50 MG Tablet PO SCH (11:01)
--- NOTE | 2018-05-14 13:59 | P.PNIM ---
Subjective Interval history: Patient reports he is feeling ok today. No new issues. Physical Exam Vital signs: Vital Signs 05/13/18 16:00 05/13/18 20:00 05/14/18 00:00 Temperature 97.8 F 97.8 F 97.7 F Pulse Rate 106 H 123 H 103 H Respiratory Rate 23 18 20 Blood Pressure 106/64 106/73 106/77 Pulse Oximetry 99 100 99 05/14/18 04:00 05/14/18 08:00 05/14/18 12:00 Temperature 98.1 F 98.3 F 97.8 F Pulse Rate 105 H 100 H 120 H Respiratory Rate 20 21 22 Blood Pressure 114/77 102/70 117/70 Pulse Oximetry 100 98 99 Intake & Output 05/13/18 05/14/18 05/14/18 18:59 06:59 18:59 Intake Total 1260 / 1260 440 / 440 Output Total 1150 / 1150 1500 / 1500 Balance 110 / 110 -1060 / -1060 Intake: IV 300 / 300 200 / 200 Ancef Inj 2,000 MG In NS Inj 80 300 / 300 200 / 200 ML @ 200 mls/hr IV.SIG Q6H [facility] Rx#:[id number] Oral 960 / 960 240 / 240 Output: Urine 1150 / 1150 1500 / 1500 Other: # Voids 3 Narrative: General patient in no acute distress HEENT extraocular movements are intact, clear oropharyngeal mucosa, no JVD Cardiovascular S1-S2 audible. Heart rate in the high 90s Respiratory clear to auscultation bilaterally Abdomen soft, nontender, nondistended, normal bowel sounds Extremities no edema 2+ distal pulses in bilateral upper and lower extremities, well-healed scar of the left knee. No signs of infection. Neuro: patient can move all 4 extremities sensation is intact bilaterally. Results - Labs CBC & Chem 7: 05/08/18 05:01 05/06/18 03:42 Assessment and Plan - Plan 32-year-old male with a history of IV drug abuse. The patient states that he uses IV heroin. 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 He also had septic emboli to the lung and spleen from the endocarditis. [facility] and [facility] in [facility] and has now returned to our facility for treatment of infective endocarditis. Sepsis, secondary to MSSA infective endocarditis He will be continued on IV Ancef until 05/22/2018 as per infectious disease recommendations. Patient has a history of IV drug use and will need IV antibiotics in hospital. Continue current treatment. Septic left knee s/p left knee arthrotomy with irrigation and debridement, performed nearly 4 weeks ago Last seen by orthopedics on April 17, surgical wound has healed, there are no signs of infections. He is tolerating physical therapy without any significant difficulties. Patient is ambulatory and walks with a limp Continue rehabilitation efforts with PT. Sinus tachycardia: -Likely secondary to deconditioning -Increase metoprolol to 75 mg twice daily. Continue to monitor. DVT Prophylaxis Patient is ambulating
[2018-05-15] MEDS: SODIUM CHLORIDE IV.SIG SCH ×8 (06:17→23:04)
[2018-05-15] MEDS: CEFAZOLIN IV.SIG SCH ×8 (06:17→23:04)
[2018-05-15] MEDS: Metoprolol Tartrate 25 MG Tablet PO SCH ×2 (09:37→20:57)
[2018-05-15] MEDS: Ferrous Sulfate 325 MG Tablet PO SCH (09:37)
[2018-05-15] MEDS: Senna/Docusate Sodium 8.6/50 MG Tablet PO SCH ×2 (09:37→20:57)
--- NOTE | 2018-05-15 17:06 | P.PNIM ---
Subjective Interval history: Follow-up endocarditis. Patient laying in bed awake alert and oriented x3, denies any pain or shortness of breath. Discussed antibiotic treatment, education on drug use and cessation. Verbalized understanding. Patient stated will stop using IV drugs patient. Patient stated moving out of his previous place to avoid using drugs. Patient denies any headache or dizziness, denies any nausea or vomiting, denies constipation or diarrhea. Patient denies any fever or chills. Physical Exam Vital signs: Vital Signs 05/14/18 20:00 05/15/18 00:00 05/15/18 04:00 Temperature 98.2 F 99.1 F 98.1 F Pulse Rate 116 H 107 H 88 Respiratory Rate 18 18 18 Blood Pressure 113/67 106/65 98/62 L Pulse Oximetry 100 98 98 05/15/18 08:00 05/15/18 12:00 Temperature 98.1 F Pulse Rate 113 H 115 H Respiratory Rate 20 Blood Pressure 102/64 Pulse Oximetry 100 Intake & Output 05/14/18 05/15/18 05/15/18 18:59 06:59 18:59 Intake Total 1160 / 1160 310 / 310 200 / 200 Output Total 1000 / 1000 Balance 160 / 160 310 / 310 200 / 200 Intake: IV 200 / 200 100 / 100 200 / 200 Ancef Inj 2,000 MG In NS Inj 80 200 / 200 100 / 100 200 / 200 ML @ 200 mls/hr IV.SIG Q6H [facility] Rx#:[id number] Oral 960 / 960 210 / 210 Output: Urine 1000 / 1000 Other: # Voids 4 Date of Last Bowel Movement 05/08/18 Narrative: GENERAL: Well-developed well-nourished, alert and oriented x3, with no apparent distress SKIN: Warm and dry. Left knee surgical scar healed HEAD: Atraumatic. Normocephalic. EYES: Pupils equal and round. No scleral icterus. No injection or drainage. ENT: No nasal bleeding or discharge. Mucous membranes pink and moist. NECK: Trachea midline. No JVD. CARDIOVASCULAR: Regular rate and rhythm. RESPIRATORY: No accessory muscle use. Clear to auscultation. Breath sounds equal bilaterally. GASTROINTESTINAL: Abdomen soft, non-tender, nondistended. Hepatic and splenic margins not palpable. MUSCULOSKELETAL: Extremities without clubbing, cyanosis, or edema. No obvious deformities. NEUROLOGICAL: Awake and alert. No obvious cranial nerve deficits. Motor grossly within normal limits. Five out of 5 muscle strength in the arms and legs. Normal speech. PSYCHIATRIC: Appropriate mood and affect; insight and judgment normal. Results - Labs CBC & Chem 7: 05/08/18 05:01 05/06/18 03:42 Assessment and Plan - Plan 32-year-old male with a history of IV drug abuse. The patient states that he uses IV heroin. 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 He also had septic emboli to the lung and spleen from the endocarditis. He subsequently went to long term and received IV antibiotics while in long term and has now returned to our facility for treatment of infective endocarditis. Sepsis, secondary to MSSA infective endocarditis/leukocytosis Patient has a history of IV drug use and will need IV antibiotics in hospital. -continued on IV Ancef until 05/22/2018 as per infectious disease recommendations Septic left knee, hx of s/p left knee arthrotomy with irrigation and debridement, performed nearly 4 weeks ago -surgical wound has healed, there are no signs of infections.Last seen by orthopedics on April 17 -tolerating physical therapy without any significant difficulties. Patient is ambulatory and walks with a limp -Continue rehabilitation efforts with PT. Sinus tachycardia: -Likely secondary to deconditioning -increase fluid intake -Increase metoprolol to 75 mg twice daily. Continue to monitor. Hep C -likely related to IVDU -monitor signs and symptoms DVT Prophylaxis -increase ambulation
[2018-05-15 19:32] LABS: Baso # (Auto) 0.1 th/mm3 (0.0-0.2); Baso % (Auto) 0.8 % (0.0-2.0); Eos # (Auto) 0.1 th/mm3 (0.0-0.4); Eos % (Auto) 0.5 % (0.0-4.0); Hematocrit 28.9 % (39.0-51.0); Hemoglobin 9.1 gm/dL (13.0-17.0); Lymph # (Auto) 2.4 th/mm3 (1.0-4.8); Lymph % (Auto) 15.6 % (9.0-44.0); Mean Corpuscular HGB Conc 31.4 % (32.0-36.0); Mean Corpuscular Hemoglobin 25.7 pg (27.0-34.0); Mean Corpuscular Volume 81.7 fL (80.0-100.0); Mean Platelet Volume 6.5 fL (7.0-11.0); Mono % (Auto) 6.2 % (0.0-8.0); Neut % (Auto) 76.9 % (16.0-70.0); Platelet Count 499 th/mm3 (150-450); Red Blood Count 3.53 mil/mm3 (4.50-5.90); White Blood Count 15.6 th/mm3 (4.0-11.0)
[2018-05-16] MEDS: CEFAZOLIN IV.SIG SCH ×6 (05:03→18:07)
[2018-05-16] MEDS: SODIUM CHLORIDE IV.SIG SCH ×6 (05:03→18:07)
[2018-05-16] MEDS: Metoprolol Tartrate 25 MG Tablet PO SCH ×2 (08:44→20:45)
[2018-05-16] MEDS: Ferrous Sulfate 325 MG Tablet PO SCH (08:45)
[2018-05-16] MEDS: Senna/Docusate Sodium 8.6/50 MG Tablet PO SCH ×2 (08:45→20:46)
--- NOTE | 2018-05-16 15:44 | P.PNIM ---
Subjective Interval history: Follow-up endocarditis. Patient laying patient laying in bed, complains of shortness of breath with exertion. Patient complains of chills last night stated he was shivering. Today he denies any fever or chills. Patient denies any chest pain, headache or dizziness, nausea or vomiting, diarrhea or constipation. Patient denies any fever or chills. Physical Exam Vital signs: Vital Signs 05/15/18 16:00 05/15/18 19:43 05/15/18 20:00 Temperature 98.3 F Pulse Rate 107 H 134 H Respiratory Rate 20 18 Blood Pressure 93/51 L Pulse Oximetry 100 05/15/18 20:42 05/15/18 23:02 05/16/18 00:02 Temperature 101.1 F H 99.4 F Pulse Rate 129 H 105 H 109 H Respiratory Rate 18 18 Blood Pressure 111/56 L 93/61 L Pulse Oximetry 100 99 05/16/18 03:59 05/16/18 04:00 05/16/18 08:00 Temperature 98.8 F 98.3 F Pulse Rate 111 H 113 H 108 H Respiratory Rate 16 18 Blood Pressure 106/61 95/53 L Pulse Oximetry 98 100 05/16/18 12:00 Temperature 99.3 F Pulse Rate 104 H Respiratory Rate 18 Blood Pressure 97/57 L Pulse Oximetry 100 Intake & Output 05/15/18 05/16/18 05/16/18 18:59 06:59 18:59 Intake Total 1160 / 1160 300 / 300 100 / 100 Output Total 1650 / 1650 1700 / 1700 Balance -490 / -490 -1400 / -1400 100 / 100 Weight 59.9 kg Intake: IV 200 / 200 300 / 300 100 / 100 Ancef Inj 2,000 MG In NS Inj 80 200 / 200 300 / 300 100 / 100 ML @ 200 mls/hr IV.SIG Q6H [facility] Rx#:[id number] Oral 960 / 960 Output: Urine 1650 / 1650 1700 / 1700 Other: # Bowel Movements 1 Narrative: GENERAL: Well-developed well-nourished, alert and oriented x3, with no apparent distress SKIN: Warm and dry. Left knee surgical scar healed HEAD: Atraumatic. Normocephalic. EYES: Pupils equal and round. No scleral icterus. No injection or drainage. ENT: No nasal bleeding or discharge. Mucous membranes pink and moist. NECK: Trachea midline. No JVD. CARDIOVASCULAR: Regular rate and rhythm. RESPIRATORY: No accessory muscle use. Clear to auscultation. Breath sounds equal bilaterally. GASTROINTESTINAL: Abdomen soft, non-tender, nondistended. Hepatic and splenic margins not palpable. MUSCULOSKELETAL: Extremities without clubbing, cyanosis, or edema. No obvious deformities. NEUROLOGICAL: Awake and alert. No obvious cranial nerve deficits. Motor grossly within normal limits. Five out of 5 muscle strength in the arms and legs. Normal speech. PSYCHIATRIC: Appropriate mood and affect; insight and judgment normal. Results - Labs CBC & Chem 7: 05/15/18 19:02 05/06/18 03:42 Laboratory Results - last 24 hr 05/15/18 19:02 WBC 15.6 H RBC 3.53 L Hgb 9.1 L Hct 28.9 L MCV 81.7 MCH 25.7 L MCHC 31.4 L RDW 17.0 Plt Count 499 H MPV 6.5 L Neut % (Auto) 76.9 H Lymph % (Auto) 15.6 [place] % (Auto) 6.2 Eos % (Auto) 0.5 Baso % (Auto) 0.8 Neut # (Auto) 12.0 H Lymph # (Auto) 2.4 [place] # (Auto) 1.0 H Eos # (Auto) 0.1 Baso # (Auto) 0.1 WBC Differential . Differential Comment Auto diff final Assessment and Plan - Plan 32-year-old male with a history of IV drug abuse. The patient states that he uses IV heroin. 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 He also had septic emboli to the lung and spleen from the endocarditis. He subsequently went to longterm and received IV antibiotics while in longterm and has now returned to our facility for treatment of infective endocarditis. Sepsis, secondary to MSSA infective endocarditis/leukocytosis Patient has a history of IV drug use and will need IV antibiotics in hospital. -continued on IV Ancef until 05/22/2018 as per infectious disease recommendations -Monitor CBC, monitor signs and symptoms Septic left knee, hx of s/p left knee arthrotomy with irrigation and debridement, performed nearly 4 weeks ago -surgical wound has healed, there are no signs of infections.Last seen by orthopedics on April 17 -tolerating physical therapy without any significant difficulties. Patient is ambulatory and walks with a limp -Continue rehabilitation efforts with PT. Sinus tachycardia/hypotension -Likely secondary to deconditioning -Start IV fluid , encourage increase fluid intake -Decrease metoprolol to 50 mg twice daily. Continue to monitor. Hep C -likely related to IVDU -monitor signs and symptoms DVT Prophylaxis -increase ambulation Code Status: Full code Discussed Condition With: Patient, nurse, Dr. Kaur and Dr. Hutchison
[2018-05-16] MEDS: Sodium Chloride 0.45 % Inj 1,000 ML IV.CONT SCH (18:07)
[2018-05-16] MEDS: ceFAZolin 2 GM Premix Inj 2 GM/50 ML PIGGYBACK IV.SIG SCH (23:43)
[2018-05-17] MEDS: Sodium Chloride 0.45 % Inj 1,000 ML IV.CONT SCH (05:51)
[2018-05-17] MEDS: ceFAZolin 2 GM Premix Inj 2 GM/50 ML PIGGYBACK IV.SIG SCH ×4 (06:27→23:14)
[2018-05-17 06:28] LABS: Baso # (Auto) 0.1 th/mm3 (0.0-0.2); Baso % (Auto) 0.5 % (0.0-2.0); Eos # (Auto) 0.1 th/mm3 (0.0-0.4); Eos % (Auto) 0.4 % (0.0-4.0); Hematocrit 26.9 % (39.0-51.0); Hemoglobin 8.6 gm/dL (13.0-17.0); Mean Corpuscular HGB Conc 31.9 % (32.0-36.0); Mean Corpuscular Hemoglobin 25.5 pg (27.0-34.0); Mean Corpuscular Volume 80.1 fL (80.0-100.0); Mean Platelet Volume 6.6 fL (7.0-11.0); Mono # (Auto) 1.1 th/mm3 (0.0-0.9); Mono % (Auto) 8.5 % (0.0-8.0); Neut # (Auto) 9.4 th/mm3 (1.8-7.7); Neut % (Auto) 74.6 % (16.0-70.0); Platelet Count 430 th/mm3 (150-450); Red Blood Count 3.35 mil/mm3 (4.50-5.90); White Blood Count 12.6 th/mm3 (4.0-11.0)
[2018-05-17 06:43] LABS: Anion Gap 10 meq/L (5-15); Blood Urea Nitrogen 14 mg/dL (7-18); Calcium 8.5 mg/dL (8.5-10.1); Carbon Dioxide 27.2 meq/L (21.0-32.0); Chloride 99 meq/L (98-107); Glomerular Filtration Rate Greater Than 89 mL/min (>89); Glucose,Random 87 mg/dL (74-106); Potassium 3.9 meq/L (3.5-5.1); Sodium 136 meq/L (136-145)
[2018-05-17] MEDS: Senna/Docusate Sodium 8.6/50 MG Tablet PO SCH ×2 (08:09→20:35)
[2018-05-17] MEDS: Ferrous Sulfate 325 MG Tablet PO SCH (08:09)
[2018-05-17] MEDS: Metoprolol Tartrate 25 MG Tablet PO SCH ×2 (08:10→20:35)
--- NOTE | 2018-05-17 15:39 | P.PNIM ---
Subjective Interval history: Follow-up endocarditis, sepsis, sinus tachycardia, hypotension. Patient sitting in the bed just came back from physical therapy stated he walked further today and climb few stairs states that he got short of breath and climbing the stairs. Patient denies any discomfort other than the chronic lower back pain. Patient discussed the thought of changing his life, stated he admitted he was then added and plan to move down to [facility] in [facility] by the [place] with a good family support. Patient stated he do not want to go back to care home again. Education given, patient verbalized understanding. Patient denies any headache or dizziness, denies any chest pain or shortness of breath at rest, denies any nausea or vomiting. Patient had bowel movement with no diarrhea or constipation. Patient denies any fever or chills Physical Exam Vital signs: Vital Signs 05/16/18 16:00 05/16/18 20:00 05/16/18 23:41 Temperature 99.7 F H 99.1 F 98.7 F Pulse Rate 121 H 136 H 111 H Respiratory Rate 18 18 16 Blood Pressure 118/62 109/67 100/63 Pulse Oximetry 99 99 98 05/17/18 00:00 05/17/18 04:00 05/17/18 08:00 Temperature 99.6 F 99.7 F H Pulse Rate 110 H 117 H 131 H Respiratory Rate 16 18 Blood Pressure 111/63 107/63 Pulse Oximetry 99 96 05/17/18 12:00 Temperature 97.9 F Pulse Rate 104 H Respiratory Rate 18 Blood Pressure 93/60 L Pulse Oximetry 100 Intake & Output 05/16/18 05/17/18 05/17/18 18:59 06:59 18:59 Intake Total 1640 / 1640 1100 / 1100 50 / 50 Output Total 2625 / 2625 1500 / 1500 Balance -985 / -985 -400 / -400 50 / 50 Weight 58.1 kg Intake: IV 200 / 200 1100 / 1100 50 / 50 1/2 Normal Saline Inj 1,000 ML 1000 / 1000 @ 84 mls/hr IV.CONT .[id number] [facility] Rx#:[id number] Ancef 2 GM Premix Inj 2 gm In 100 / 100 50 / 50 50 ml @ 100 mls/hr IV.SIG Q6H [facility] Rx#:[id number] Ancef Inj 2,000 MG In NS Inj 80 200 / 200 ML @ 200 mls/hr IV.SIG Q6H [facility] Rx#:[id number] Oral 1440 / 1440 Output: Urine 2625 / 2625 1500 / 1500 Other: # Bowel Movements 0 Narrative: GENERAL: Well-developed well-nourished, alert and oriented x3, with no apparent distress SKIN: Warm and dry. Left knee surgical scar healed, multiple tattoos in the body HEAD: Atraumatic. Normocephalic. EYES: Pupils equal and round. No scleral icterus. No injection or drainage. ENT: No nasal bleeding or discharge. Mucous membranes pink and moist. NECK: Trachea midline. No JVD. CARDIOVASCULAR: Regular rate and rhythm. RESPIRATORY: No accessory muscle use. Clear to auscultation. Breath sounds equal bilaterally. GASTROINTESTINAL: Abdomen flat, soft, non-tender, nondistended. Hepatic and splenic margins not palpable. MUSCULOSKELETAL: Extremities without clubbing, cyanosis, or edema. No obvious deformities. NEUROLOGICAL: Awake and alert. No obvious cranial nerve deficits. Motor grossly within normal limits. Five out of 5 muscle strength in the arms and legs. Normal speech. PSYCHIATRIC: Appropriate mood and affect; insight and judgment normal. Results - Labs CBC & Chem 7: 05/17/18 05:00 05/17/18 05:10 Laboratory Results - last 24 hr 05/17/18 05/17/18 05:00 05:10 WBC 12.6 H RBC 3.35 L Hgb 8.6 L Hct 26.9 L MCV 80.1 MCH 25.5 L MCHC 31.9 L RDW 17.0 Plt Count 430 MPV 6.6 L Neut % (Auto) 74.6 H Lymph % (Auto) 16.0 [place] % (Auto) 8.5 H Eos % (Auto) 0.4 Baso % (Auto) 0.5 Neut # (Auto) 9.4 H Lymph # (Auto) 2.0 [place] # (Auto) 1.1 H Eos # (Auto) 0.1 Baso # (Auto) 0.1 WBC Differential . Differential Comment Auto diff final Sodium 136 Potassium 3.9 Chloride 99 Carbon Dioxide 27.2 Anion Gap 10 BUN 14 Creatinine 0.69 Estimated GFR Greater than 89 Random Glucose 87 Calcium 8.5 Assessment and Plan - Plan 32-year-old male with a history of IV drug abuse. The patient states that he uses IV heroin. 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 He also had septic emboli to the lung and spleen from the endocarditis. He subsequently went to care home and received IV antibiotics while in care home and has now returned to our facility for treatment of infective endocarditis. Sepsis, secondary to MSSA infective endocarditis/leukocytosis Patient has a history of IV drug use -continue IV Ancef until 05/22/2018 as per infectious disease recommendations -Monitor CBC, monitor signs and symptoms -Blood Cx on 04/21: no growth in 5 days Septic left knee, hx of s/p left knee arthrotomy with irrigation and debridement, performed nearly 4 weeks ago -surgical wound has healed, there are no signs of infections. Last seen by orthopedics on April 17 -stable, no edema -tolerating physical therapy without any significant difficulties. Patient is ambulatory and walks with a limp -Continue rehabilitation efforts with PT. Sinus tachycardia/hypotension -Likely secondary to deconditioning -Start IV fluid , encourage increase fluid intake -Decrease metoprolol , Continue to monitor. Hep C/IVDU -likely related to IVDU -monitor signs and symptoms DVT Prophylaxis -increase ambulation Code Status: full code Discussed Condition With: patient and nurse, MDR Discharge Planning: Plan to discharge when cleared with ID and finished with IV antibiotic 05/22
--- NOTE | 2018-05-17 16:26 | P.PNID ---
Subjective Remarks: Mr. Garcia is a 32-year-old male with past medical history significant for MSSA endocarditis for which she was admitted recently from March 29, 2018 to April 17, 2018. Patient was noted to have septic emboli to lungs as well as the spleen with infarcts. Patient was admitted under a different name Renea Lawson during that admission. He had a left knee arthrotomy with irrigation and debridement of the septic arthritis during his hospitalization. Once his acute sepsis was resolved and patient responded to Ancef IV patient was discharged to the [facility] system. Patient reports that on April 18, 2018 he was released from the [facility] system and that currently does not have any primary care physician and therefore presented to the emergency department for completion of his IV antibiotic therapy. He was found to have MV and TV vegetations. Also had surgery for L septic knee. Has evidence of possible SI joint infection/inflammation on MRI. Initial plan was to complete Abx Rx until May 22 Notes reviewed Episode of fever 2 days ago Has occ chills since Temps highest since 99+ Voiding ok No diarrhea NO rash or itching Has been ambulating Notes some SOB Not coughing Antibiotics: Ancef Lines: PIV - Line site ok Past Medical History: reviewed Allergies/Adverse Reactions: Allergies No Known Allergies Allergy (Unverified 04/19/18 15:29) Objective Vital Signs 05/16/18 20:00 05/16/18 23:41 05/17/18 00:00 Temperature 99.1 F 98.7 F Pulse Rate 136 H 111 H 110 H Respiratory Rate 18 16 Blood Pressure 109/67 100/63 Pulse Oximetry 99 98 05/17/18 04:00 05/17/18 08:00 05/17/18 12:00 Temperature 99.6 F 99.7 F H 97.9 F Pulse Rate 117 H 131 H 104 H Respiratory Rate 16 18 18 Blood Pressure 111/63 107/63 93/60 L Pulse Oximetry 99 96 100 Intake & Output 05/16/18 05/17/18 05/17/18 18:59 06:59 18:59 Intake Total 1640 / 1640 1100 / 1100 50 / 50 Output Total 2625 / 2625 1500 / 1500 Balance -985 / -985 -400 / -400 50 / 50 Weight 58.1 kg Intake: IV 200 / 200 1100 / 1100 50 / 50 1/2 Normal Saline Inj 1,000 ML 1000 / 1000 @ 84 mls/hr IV.CONT .[id number] [facility] Rx#:[id number] Ancef 2 GM Premix Inj 2 gm In 100 / 100 50 / 50 50 ml @ 100 mls/hr IV.SIG Q6H [facility] Rx#:[id number] Ancef Inj 2,000 MG In NS Inj 80 200 / 200 ML @ 200 mls/hr IV.SIG Q6H [facility] Rx#:[id number] Oral 1440 / 1440 Output: Urine 2625 / 2625 1500 / 1500 Other: # Bowel Movements 0 Lab - Hematology Results 05/15/18 05/17/18 19:02 05:00 WBC 15.6 H 12.6 H RBC 3.53 L 3.35 L Hgb 9.1 L 8.6 L Hct 28.9 L 26.9 L MCV 81.7 80.1 MCH 25.7 L 25.5 L MCHC 31.4 L 31.9 L RDW 17.0 17.0 Plt Count 499 H 430 MPV 6.5 L 6.6 L Neut % (Auto) 76.9 H 74.6 H Lymph % (Auto) 15.6 16.0 [place] % (Auto) 6.2 8.5 H Eos % (Auto) 0.5 0.4 Baso % (Auto) 0.8 0.5 Neut # (Auto) 12.0 H 9.4 H Lymph # (Auto) 2.4 2.0 [place] # (Auto) 1.0 H 1.1 H Eos # (Auto) 0.1 0.1 Baso # (Auto) 0.1 0.1 WBC Differential . . Differential Comment Auto diff final Auto diff final Lab - Chemistry Results 05/17/18 05:10 Sodium 136 Potassium 3.9 Chloride 99 Carbon Dioxide 27.2 Anion Gap 10 BUN 14 Creatinine 0.69 Estimated GFR Greater than 89 Random Glucose 87 Calcium 8.5 Imaging: ITS Impressions Abdomen/Pelvis CT 04/20/18 00:00 CONCLUSION: 1. Multiple wedge-shaped perfusion defects involving the spleen suggestive of probable splenic infarcts. 2. Hepatosplenomegaly. 3. Peripheral cortical defects involving the kidneys bilaterally suggesting possible renal infarcts. 4. Some free fluid within the cul-de-sac. 5. Scattered cavitary lesions within the lungs which are described in detail on the CT of the chest report and may represent septic emboli or cavitary metastases. 6. Tiny bilateral pleural effusions with adjacent bibasilar atelectatic changes. Chest CT 04/20/18 00:00 CONCLUSION: 1. Multiple cavitary lesions bilaterally which could be consistent with septic emboli or cavitary metastases. Clinical correlation is recommended. 2. Multiple wedge-shaped areas of decreased perfusion within the spleen consistent with possible splenic infarcts. 3. Hepatosplenomegaly. 4. Tiny bilateral pleural effusions. 5. Bibasilar atelectasis. Physical Exam: GENERAL: Awakens easily from sleep, not in acute distress SKIN: Cool and dry, no generalized rash HEAD: Atraumatic. Normocephalic. No temporal or scalp tenderness. EYES: Pupils equal round and reactive. Scleral icterus. No injection or drainage. No petechia ENT: Nothing abnormal detected NECK: Trachea midline. Supple, nontender, no meningeal signs. CARDIOVASCULAR: HS audible. RESPIRATORY: Clear to auscultation bilaterally. GASTROINTESTINAL: Abdomen soft nontender. MUSCULOSKELETAL: Extremities without clubbing, cyanosis. Healed incision L knee , flexion 90 degrees NEUROLOGICAL: Alert oriented 3. Nonfocal. Psych cooperative IV line sites ok. 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
--- NOTE | 2018-05-17 17:10 | XR ---
EXAM DATE: 05/17/2018 12:00 AM EDT AGE/SEX: 32 years / Male INDICATIONS: . Short of breath and fever. CLINICAL DATA: This is the patient's initial encounter. Patient reports that signs and symptoms have been present for 1 day and indicates a pain score of 0/10. MEDICAL/SURGICAL HISTORY: None. Endocarditis. None. COMPARISON: No prior exams available for comparison. FINDINGS: AP and lateral views of the chest demonstrate left upper lobe airspace disease. Right lung clear. Hea rt normal in size. The cardiomediastinal contours are unremarkable. Osseous structures are intact. CONCLUSION: Left upper lobe pneumonia. Recommend medical treatment and follow-up to resolution. Electronically signed by: Homar Curran MD 05/17/2018 5:09 PM EDT
[2018-05-18] MEDS: ceFAZolin 2 GM Premix Inj 2 GM/50 ML PIGGYBACK IV.SIG SCH ×3 (06:37→17:29)
[2018-05-18 08:17] LABS: Bacteria,Urine Moderate /hpf; Bilirubin,Urine Negative (Negative); Clarity,Urine Hazy (Clear); Color,Urine Yellow (Yellw/Straw); Glucose,Urine (UA) Negative (Negative); Hyaline Casts,Urine 1 /lpf (0-3); Leukocyte Esterase,Urine Negative (Negative); Mucus,Urine Few /lpf (Occasional); Nitrite,Urine Negative (Negative); Specific Gravity,Urine 1.014 (1.002-1.035)
[2018-05-18] MEDS: Ferrous Sulfate 325 MG Tablet PO SCH (08:43)
[2018-05-18] MEDS: Senna/Docusate Sodium 8.6/50 MG Tablet PO SCH ×2 (08:44→21:43)
[2018-05-18] MEDS: Metoprolol Tartrate 25 MG Tablet PO SCH ×2 (08:45→21:44)
--- NOTE | 2018-05-18 13:33 | P.PNIM ---
Subjective Interval history: Follow-up endocarditis, sepsis, sinus tachycardia, hypotension and pneumonia. Patient sitting in bed stated complaint of shortness of breath on exertion with activity. Patient stated he was sweating but not sure if he had fever denies any chills. Patient denies any pain or dizziness, denies any nausea or vomiting , denies any diarrhea or constipation. Physical Exam Vital signs: Vital Signs 05/17/18 16:00 05/17/18 20:00 05/17/18 23:17 Temperature 98.3 F 98.4 F Pulse Rate 116 H 131 H Respiratory Rate 18 18 19 Blood Pressure 106/58 L 109/68 Pulse Oximetry 100 98 05/18/18 00:00 05/18/18 04:00 05/18/18 08:00 Temperature 98.4 F 98.4 F 99.1 F Pulse Rate 105 H 112 H 127 H Respiratory Rate 18 16 20 Blood Pressure 100/58 L 107/66 108/65 Pulse Oximetry 100 99 98 Intake & Output 05/17/18 05/18/18 05/18/18 18:59 06:59 18:59 Intake Total 2060 / 2060 511 / 511 50 / 50 Output Total 1400 / 1400 1100 / 1100 Balance 660 / 660 -589 / -589 50 / 50 Weight 58 kg Intake: IV 1100 / 1100 50 / 50 50 / 50 1/2 Normal Saline Inj 1,000 ML 1000 / 1000 @ 84 mls/hr IV.CONT .[id number] [facility] Rx#:[id number] Ancef 2 GM Premix Inj 2 gm In 100 / 100 50 / 50 50 / 50 50 ml @ 100 mls/hr IV.SIG Q6H [facility] Rx#:[id number] Oral 960 / 960 461 / 461 Output: Urine 1400 / 1400 1100 / 1100 Narrative: GENERAL: Well-developed well-nourished, alert and oriented x3, with no apparent distress SKIN: Warm and dry. Left knee surgical scar healed, multiple tattoos in the body HEAD: Atraumatic. Normocephalic. EYES: Pupils equal and round. No scleral icterus. No injection or drainage. ENT: No nasal bleeding or discharge. Mucous membranes pink and moist. NECK: Trachea midline. No JVD. CARDIOVASCULAR: Regular rate and rhythm. RESPIRATORY: No accessory muscle use. Clear to auscultation. Breath sounds equal bilaterally. GASTROINTESTINAL: Abdomen flat, soft, non-tender, nondistended. Hepatic and splenic margins not palpable. MUSCULOSKELETAL: Extremities without clubbing, cyanosis, or edema. No obvious deformities. NEUROLOGICAL: Awake and alert. No obvious cranial nerve deficits. Motor grossly within normal limits. Five out of 5 muscle strength in the arms and legs. Normal speech. PSYCHIATRIC: Appropriate mood and affect; insight and judgment normal. Results - Labs CBC & Chem 7: 05/17/18 05:00 05/17/18 05:10 Laboratory Results - last 24 hr 05/18/18 07:20 Urine Color Yellow Urine Clarity Hazy H Urine pH 6.0 Ur Specific [place] 1.014 Urine Protein Negative Urine Glucose (UA) Negative Urine Ketones Trace H Urine Occult Blood Negative Urine Nitrate Negative Urine Bilirubin Negative Urine Urobilinogen Less than 2 Ur Leukocyte Esterase Negative Urine RBC 3 Urine WBC 1 Urine Bacteria Moderate H Hyaline Casts 1 Urine Mucus Few H Urine Yeast Few H Micro UA Comment Culture indicated Ur Microscopic Review Not Reportable Urine Culture Comments Culture indicated Microbiology 05/17/18 19:13 Blood - Peripheral Aerobic Blood Culture - Preliminary No growth in 1 day 05/17/18 19:13 Blood - Peripheral Anaerobic Blood Culture - Preliminary No growth in 1 day 05/17/18 19:08 Blood - Peripheral Aerobic Blood Culture - Preliminary No growth in 1 day 05/17/18 19:08 Blood - Peripheral Anaerobic Blood Culture - Preliminary No growth in 1 day - Imaging Impressions Chest X-Ray 05/17/18 00:00 CONCLUSION: Left upper lobe pneumonia. Recommend medical treatment and follow-up to resolution. Assessment and Plan - Plan 32-year-old male with a history of IV drug abuse. The patient states that he uses IV heroin. 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 He also had septic emboli to the lung and spleen from the endocarditis. He subsequently went to senior living and received IV antibiotics while in senior living and has now returned to our facility for treatment of infective endocarditis. Sepsis, secondary to MSSA infective endocarditis/leukocytosis Patient has a history of IV drug use -continue IV Ancef until 05/22/2018 as per infectious disease recommendations -Blood Cx on 04/21: no growth in 5 days -WBC improved from yesterday was 15.6, today 12.6 -Monitor CBC, monitor signs and symptoms Pneumonia -Chest x-ray: Left upper lobe pneumonia -ID consulted appreciate input -Continue Ancef IV -Levaquin oral added Monitor respiratory status add as needed duo nebs for shortness of breath Septic left knee, hx of s/p left knee arthrotomy with irrigation and debridement, performed nearly 4 weeks ago -surgical wound has healed, there are no signs of infections. Last seen by orthopedics on April 17 -stable, no edema -tolerating physical therapy without any significant difficulties. Patient is ambulatory and walks with a limp -Continue rehabilitation efforts with PT. Sinus tachycardia/hypotension -Likely secondary to deconditioning, infection -continue IV fluid , encourage increase fluid intake -Decrease metoprolol , Continue to monitor. Hep C/IVDU -likely related to IVDU -monitor signs and symptoms DVT Prophylaxis -increase ambulation Code Status: Full code Discussed Condition With: Discussed with patient, nurse Discussed with Dr. Hutchison Discharge Planning: Plan to discharge when cleared with ID and finished with IV antibiotic 05/22
[2018-05-18] MEDS: levoFLOXacin 750 MG Tablet PO SCH (14:05)
[2018-05-18] MEDS: Sodium Chloride 0.45 % Inj 1,000 ML IV.CONT SCH (14:05)
--- NOTE | 2018-05-18 17:41 | P.PNID ---
Subjective Remarks: Mr. Garcia is a 32-year-old male with past medical history significant for MSSA endocarditis for which she was admitted recently from March 29, 2018 to April 17, 2018. Patient was noted to have septic emboli to lungs as well as the spleen with infarcts. Patient was admitted under a different name Renea Lawson during that admission. He had a left knee arthrotomy with irrigation and debridement of the septic arthritis during his hospitalization. Once his acute sepsis was resolved and patient responded to Ancef IV patient was discharged to the correction system. Patient reports that on April 18, 2018 he was released from the correction system and that currently does not have any primary care physician and therefore presented to the emergency department for completion of his IV antibiotic therapy. He was found to have MV and TV vegetations. Also had surgery for L septic knee. Has evidence of possible SI joint infection/inflammation on MRI. Initial plan was to complete Abx Rx until May 22 Notes reviewed Has occ chills since Temps highest since 99+ Voiding ok No diarrhea NO rash or itching Has been ambulating Notes some SOB Not coughing Chest x-ray with a left upper lobe infiltrate Antibiotics: Ancef Lines: PIV - Line site ok Past Medical History: reviewed Allergies/Adverse Reactions: Allergies No Known Allergies Allergy (Unverified 04/19/18 15:29) Objective Vital Signs 05/17/18 20:00 05/17/18 23:17 05/18/18 00:00 Temperature 98.4 F 98.4 F Pulse Rate 131 H 105 H Respiratory Rate 18 19 18 Blood Pressure 109/68 100/58 L Pulse Oximetry 98 100 05/18/18 04:00 05/18/18 08:00 05/18/18 12:00 Temperature 98.4 F 99.1 F 98.5 F Pulse Rate 112 H 127 H 110 H Respiratory Rate 16 20 20 Blood Pressure 107/66 108/65 91/50 L Pulse Oximetry 99 98 99 Intake & Output 05/17/18 05/18/18 05/18/18 18:59 06:59 18:59 Intake Total 2060 / 2060 511 / 511 100 / 100 Output Total 1400 / 1400 1100 / 1100 Balance 660 / 660 -589 / -589 100 / 100 Weight 58 kg Intake: IV 1100 / 1100 50 / 50 100 / 100 1/2 Normal Saline Inj 1,000 ML 1000 / 1000 @ 84 mls/hr IV.CONT .[id number] [facility] Rx#:[id number] Ancef 2 GM Premix Inj 2 gm In 100 / 100 50 / 50 100 / 100 50 ml @ 100 mls/hr IV.SIG Q6H [facility] Rx#:[id number] Oral 960 / 960 461 / 461 Output: Urine 1400 / 1400 1100 / 1100 05/17/18 19:13 Blood - Peripheral Aerobic Blood Culture - Preliminary No growth in 1 day 05/17/18 19:13 Blood - Peripheral Anaerobic Blood Culture - Preliminary No growth in 1 day 05/17/18 19:08 Blood - Peripheral Aerobic Blood Culture - Preliminary No growth in 1 day 05/17/18 19:08 Blood - Peripheral Anaerobic Blood Culture - Preliminary No growth in 1 day 05/18/18 07:20 Clean Catch Urine Urine Culture - Pending Lab - Hematology Results 05/17/18 05:00 WBC 12.6 H RBC 3.35 L Hgb 8.6 L Hct 26.9 L MCV 80.1 MCH 25.5 L MCHC 31.9 L RDW 17.0 Plt Count 430 MPV 6.6 L Neut % (Auto) 74.6 H Lymph % (Auto) 16.0 [place] % (Auto) 8.5 H Eos % (Auto) 0.4 Baso % (Auto) 0.5 Neut # (Auto) 9.4 H Lymph # (Auto) 2.0 [place] # (Auto) 1.1 H Eos # (Auto) 0.1 Baso # (Auto) 0.1 WBC Differential . Differential Comment Auto diff final Lab - Chemistry Results 05/17/18 05:10 Sodium 136 Potassium 3.9 Chloride 99 Carbon Dioxide 27.2 Anion Gap 10 BUN 14 Creatinine 0.69 Estimated GFR Greater than 89 Random Glucose 87 Calcium 8.5 Imaging: ITS Impressions Abdomen/Pelvis CT 04/20/18 00:00 CONCLUSION: 1. Multiple wedge-shaped perfusion defects involving the spleen suggestive of probable splenic infarcts. 2. Hepatosplenomegaly. 3. Peripheral cortical defects involving the kidneys bilaterally suggesting possible renal infarcts. 4. Some free fluid within the cul-de-sac. 5. Scattered cavitary lesions within the lungs which are described in detail on the CT of the chest report and may represent septic emboli or cavitary metastases. 6. Tiny bilateral pleural effusions with adjacent bibasilar atelectatic changes. Chest CT 04/20/18 00:00 CONCLUSION: 1. Multiple cavitary lesions bilaterally which could be consistent with septic emboli or cavitary metastases. Clinical correlation is recommended. 2. Multiple wedge-shaped areas of decreased perfusion within the spleen consistent with possible splenic infarcts. 3. Hepatosplenomegaly. 4. Tiny bilateral pleural effusions. 5. Bibasilar atelectasis. Chest X-Ray 05/17/18 00:00 CONCLUSION: Left upper lobe pneumonia. Recommend medical treatment and follow-up to resolution. Physical Exam: GENERAL: Awakens easily from sleep, not in acute distress SKIN: Cool and dry, no generalized rash HEAD: Atraumatic. Normocephalic. No temporal or scalp tenderness. EYES: Pupils equal round and reactive. Scleral icterus. No injection or drainage. No petechia ENT: Nothing abnormal detected NECK: Trachea midline. Supple, nontender, no meningeal signs. CARDIOVASCULAR: HS audible. RESPIRATORY: Clear to auscultation bilaterally. GASTROINTESTINAL: Abdomen soft nontender. MUSCULOSKELETAL: Extremities without clubbing, cyanosis. Healed incision L knee , flexion 90 degrees NEUROLOGICAL: Alert oriented 3. Nonfocal. Psych cooperative IV line sites ok. 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
[2018-05-19] MEDS: ceFAZolin 2 GM Premix Inj 2 GM/50 ML PIGGYBACK IV.SIG SCH ×4 (01:07→18:03)
[2018-05-19] MEDS: Sodium Chloride 0.45 % Inj 1,000 ML IV.CONT SCH ×3 (06:05→22:50)
[2018-05-19 07:26] LABS: Baso # (Auto) 0.1 th/mm3 (0.0-0.2); Baso % (Auto) 0.8 % (0.0-2.0); Eos # (Auto) 0.1 th/mm3 (0.0-0.4); Eos % (Auto) 1.1 % (0.0-4.0); Hematocrit 25.6 % (39.0-51.0); Hemoglobin 8.4 gm/dL (13.0-17.0); Lymph # (Auto) 1.7 th/mm3 (1.0-4.8); Lymph % (Auto) 22.1 % (9.0-44.0); Mean Platelet Volume 6.7 fL (7.0-11.0); Mono # (Auto) 0.7 th/mm3 (0.0-0.9); Mono % (Auto) 8.7 % (0.0-8.0); Neut # (Auto) 5.2 th/mm3 (1.8-7.7); Neut % (Auto) 67.3 % (16.0-70.0); Platelet Count 479 th/mm3 (150-450); Red Blood Count 3.24 mil/mm3 (4.50-5.90); Red Cell Distribution Width 17.3 % (11.6-17.2); White Blood Count 7.8 th/mm3 (4.0-11.0)
[2018-05-19 07:48] LABS: Anion Gap 8 meq/L (5-15); Blood Urea Nitrogen 16 mg/dL (7-18); Carbon Dioxide 29.1 meq/L (21.0-32.0); Chloride 99 meq/L (98-107); Glomerular Filtration Rate Greater Than 89 mL/min (>89); Glucose,Random 78 mg/dL (74-106); Potassium 3.9 meq/L (3.5-5.1); Sodium 136 meq/L (136-145)
--- NOTE | 2018-05-19 08:06 | P.PNID ---
Subjective Remarks: Mr. Garcia is a 32-year-old male with past medical history significant for MSSA endocarditis for which she was admitted recently from March 29, 2018 to April 17, 2018. Patient was noted to have septic emboli to lungs as well as the spleen with infarcts. Patient was admitted under a different name Renea Lawson during that admission. He had a left knee arthrotomy with irrigation and debridement of the septic arthritis during his hospitalization. Once his acute sepsis was resolved and patient responded to Ancef IV patient was discharged to the retirement system. Patient reports that on April 18, 2018 he was released from the retirement system and that currently does not have any primary care physician and therefore presented to the emergency department for completion of his IV antibiotic therapy. He was found to have MV and TV vegetations. Also had surgery for L septic knee. Has evidence of possible SI joint infection/inflammation on MRI. Initial plan was to complete Abx Rx until May 22 Notes reviewed Temps ok Feels better Mild cough, no sputum No diarrhea NO rash or itching Has been ambulating Chest x-ray with a left upper lobe infiltrate WBC now normal Antibiotics: Ancef Levaquin Lines: PIV - Line site ok Past Medical History: reviewed Allergies/Adverse Reactions: Allergies No Known Allergies Allergy (Unverified 04/19/18 15:29) Objective Vital Signs 05/18/18 12:00 05/18/18 16:00 05/18/18 19:28 Temperature 98.5 F 98.6 F Pulse Rate 110 H 118 H 120 H Respiratory Rate 20 20 18 Blood Pressure 91/50 L 103/57 L Pulse Oximetry 99 100 05/18/18 20:00 05/19/18 00:00 05/19/18 04:00 Temperature 98.3 F 98.1 F 97.9 F Pulse Rate 126 H 114 H 106 H Respiratory Rate 20 18 20 Blood Pressure 101/62 104/59 L 99/61 L Pulse Oximetry 100 99 100 Intake & Output 05/18/18 05/19/18 05/19/18 18:59 06:59 18:59 Intake Total 1110 / 1110 1620 / 1620 50 / 50 Output Total 1200 / 1200 1400 / 1400 Balance -90 / -90 220 / 220 50 / 50 Intake: IV 150 / 150 1050 / 1050 50 / 50 1/2 Normal Saline Inj 1,000 ML 1000 / 1000 @ 100 mls/hr IV.CONT .Q10H [facility] Rx#:[id number] Ancef 2 GM Premix Inj 2 gm In 150 / 150 50 / 50 50 / 50 50 ml @ 100 mls/hr IV.SIG Q6H [facility] Rx#:[id number] Oral 960 / 960 570 / 570 Output: Urine 1200 / 1200 1400 / 1400 Other: # Bowel Movements 1 05/17/18 19:13 Blood - Peripheral Aerobic Blood Culture - Preliminary No growth in 1 day 05/17/18 19:13 Blood - Peripheral Anaerobic Blood Culture - Preliminary No growth in 1 day 05/17/18 19:08 Blood - Peripheral Aerobic Blood Culture - Preliminary No growth in 1 day 05/17/18 19:08 Blood - Peripheral Anaerobic Blood Culture - Preliminary No growth in 1 day 05/18/18 07:20 Clean Catch Urine Urine Culture - Pending Lab - Hematology Results 05/19/18 05:25 WBC 7.8 RBC 3.24 L Hgb 8.4 L Hct 25.6 L MCV 79.0 L MCH 26.0 L MCHC 33.0 RDW 17.3 H Plt Count 479 H MPV 6.7 L Neut % (Auto) 67.3 Lymph % (Auto) 22.1 [place] % (Auto) 8.7 H Eos % (Auto) 1.1 Baso % (Auto) 0.8 Neut # (Auto) 5.2 Lymph # (Auto) 1.7 [place] # (Auto) 0.7 Eos # (Auto) 0.1 Baso # (Auto) 0.1 WBC Differential . Differential Comment Auto diff final Lab - Chemistry Results 05/19/18 05:25 Sodium 136 Potassium 3.9 Chloride 99 Carbon Dioxide 29.1 Anion Gap 8 BUN 16 Creatinine 0.76 Estimated GFR Greater than 89 Random Glucose 78 Calcium 9.0 Imaging: ITS Impressions Abdomen/Pelvis CT 04/20/18 00:00 CONCLUSION: 1. Multiple wedge-shaped perfusion defects involving the spleen suggestive of probable splenic infarcts. 2. Hepatosplenomegaly. 3. Peripheral cortical defects involving the kidneys bilaterally suggesting possible renal infarcts. 4. Some free fluid within the cul-de-sac. 5. Scattered cavitary lesions within the lungs which are described in detail on the CT of the chest report and may represent septic emboli or cavitary metastases. 6. Tiny bilateral pleural effusions with adjacent bibasilar atelectatic changes. Chest CT 04/20/18 00:00 CONCLUSION: 1. Multiple cavitary lesions bilaterally which could be consistent with septic emboli or cavitary metastases. Clinical correlation is recommended. 2. Multiple wedge-shaped areas of decreased perfusion within the spleen consistent with possible splenic infarcts. 3. Hepatosplenomegaly. 4. Tiny bilateral pleural effusions. 5. Bibasilar atelectasis. Chest X-Ray 05/17/18 00:00 CONCLUSION: Left upper lobe pneumonia. Recommend medical treatment and follow-up to resolution. Physical Exam: GENERAL: Awake and alert, not in acute distress SKIN: Cool and dry, no generalized rash HEAD: Atraumatic. Normocephalic. No temporal or scalp tenderness. EYES: Pupils equal round and reactive. Scleral icterus. No injection or drainage. No petechia ENT: Nothing abnormal detected NECK: Trachea midline. Supple, nontender, no meningeal signs. CARDIOVASCULAR: HS audible. RESPIRATORY: Clear to auscultation bilaterally. GASTROINTESTINAL: Abdomen soft nontender. MUSCULOSKELETAL: Extremities without clubbing, cyanosis. Healed incision L knee , flexion 90 degrees NEUROLOGICAL: Alert oriented 3. Nonfocal. Psych cooperative IV line sites ok. 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
[2018-05-19] MEDS: levoFLOXacin 750 MG Tablet PO SCH (08:36)
[2018-05-19] MEDS: Ferrous Sulfate 325 MG Tablet PO SCH (08:36)
[2018-05-19] MEDS: Senna/Docusate Sodium 8.6/50 MG Tablet PO SCH ×2 (08:36→22:52)
[2018-05-19] MEDS: Metoprolol Tartrate 25 MG Tablet PO SCH ×2 (08:41→22:46)
--- NOTE | 2018-05-19 14:19 | P.PNIM ---
Subjective Interval history: Follow-up endocarditis, sepsis, sinus tachycardia, hypotension and pneumonia. Patient Lying in bed, alert awake and oriented x 3, denies any fever or chills. Patient stated shortness is breath is better. Patient stated he "will change his life and does not want to go back to group home again, stated there would be no third time". Patient denies any headache or dizziness, denies nausea or vomiting , no diarrhea or constipation. Physical Exam Vital signs: Vital Signs 05/18/18 16:00 05/18/18 19:28 05/18/18 20:00 Temperature 98.6 F 98.3 F Pulse Rate 118 H 120 H 126 H Respiratory Rate 20 18 20 Blood Pressure 103/57 L 101/62 Pulse Oximetry 100 100 05/19/18 00:00 05/19/18 04:00 05/19/18 07:00 Temperature 98.1 F 97.9 F Pulse Rate 114 H 106 H 111 H Respiratory Rate 18 20 18 Blood Pressure 104/59 L 99/61 L Pulse Oximetry 99 100 05/19/18 08:00 05/19/18 12:00 Temperature 97.7 F 97.9 F Pulse Rate 108 H 113 H Respiratory Rate 18 18 Blood Pressure 99/57 L 125/64 Pulse Oximetry 99 100 Intake & Output 05/18/18 05/19/18 05/19/18 18:59 06:59 18:59 Intake Total 1110 / 1110 1620 / 1620 2100 / 2100 Output Total 1200 / 1200 1400 / 1400 Balance -90 / -90 220 / 220 2099 / 2100 Intake: IV 150 / 150 1050 / 1050 2100 / 2100 1/2 Normal Saline Inj 1,000 ML 1000 / 1000 2000 / 2000 @ 100 mls/hr IV.CONT .Q10H [facility] Rx#:[id number] Ancef 2 GM Premix Inj 2 gm In 150 / 150 50 / 50 100 / 100 50 ml @ 100 mls/hr IV.SIG Q6H [facility] Rx#:[id number] Oral 960 / 960 570 / 570 Output: Urine 1200 / 1200 1400 / 1400 Other: # Bowel Movements 1 Narrative: GENERAL: Well-developed well-nourished, alert and oriented x3, with no apparent distress SKIN: Warm and dry. Left knee surgical scar healed, multiple tattoos in the body HEAD: Atraumatic. Normocephalic. EYES: Pupils equal and round. No scleral icterus. No injection or drainage. ENT: No nasal bleeding or discharge. Mucous membranes pink and moist. NECK: Trachea midline. No JVD. CARDIOVASCULAR: Regular rate and rhythm. RESPIRATORY: No accessory muscle use. Clear to auscultation. Breath sounds equal bilaterally. GASTROINTESTINAL: Abdomen flat, soft, non-tender, nondistended. Hepatic and splenic margins not palpable. MUSCULOSKELETAL: Extremities without clubbing, cyanosis, or edema. No obvious deformities. NEUROLOGICAL: Awake and alert. No obvious cranial nerve deficits. Motor grossly within normal limits. Five out of 5 muscle strength in the arms and legs. Normal speech. PSYCHIATRIC: Appropriate mood and affect; insight and judgment normal. Results - Labs CBC & Chem 7: 05/19/18 05:25 05/19/18 05:25 Laboratory Results - last 24 hr 05/18/18 05/19/18 05/19/18 07:20 05:25 05:25 WBC 7.8 RBC 3.24 L Hgb 8.4 L Hct 25.6 L MCV 79.0 L MCH 26.0 L MCHC 33.0 RDW 17.3 H Plt Count 479 H MPV 6.7 L Neut % (Auto) 67.3 Lymph % (Auto) 22.1 [place] % (Auto) 8.7 H Eos % (Auto) 1.1 Baso % (Auto) 0.8 Neut # (Auto) 5.2 Lymph # (Auto) 1.7 [place] # (Auto) 0.7 Eos # (Auto) 0.1 Baso # (Auto) 0.1 WBC Differential . Differential Comment Auto diff final Sodium 136 Potassium 3.9 Chloride 99 Carbon Dioxide 29.1 Anion Gap 8 BUN 16 Creatinine 0.76 Estimated GFR Greater than 89 Random Glucose 78 Calcium 9.0 Urine Color Yellow Urine Clarity Hazy H Urine pH 6.0 Ur Specific [place] 1.014 Urine Protein Negative Urine Glucose (UA) Negative Urine Ketones Trace H Urine Occult Blood Negative Urine Nitrate Negative Urine Bilirubin Negative Urine Urobilinogen Less than 2 Ur Leukocyte Esterase Negative Urine RBC 3 Urine WBC 1 Urine Bacteria Moderate H Hyaline Casts 1 Urine Mucus Few H Urine Yeast Few H Micro UA Comment Culture indicated Urine Culture Comments Culture indicated Microbiology 05/18/18 07:20 Clean Catch Urine Urine Culture - Preliminary gram negative rods 05/17/18 19:13 Blood - Peripheral Aerobic Blood Culture - Preliminary No growth in 2 days 05/17/18 19:13 Blood - Peripheral Anaerobic Blood Culture - Preliminary No growth in 2 days 05/17/18 19:08 Blood - Peripheral Aerobic Blood Culture - Preliminary No growth in 2 days 05/17/18 19:08 Blood - Peripheral Anaerobic Blood Culture - Preliminary No growth in 2 days Assessment and Plan - Assessment (1) Bacteremia Code(s): R78.81 - Bacteremia Status: Acute (2) Endocarditis due to methicillin susceptible Staphylococcus aureus (MSSA) Code(s): I33.0 - Acute and subacute infective endocarditis; B95.61 - Methicillin susceptible Staphylococcus aureus infection as the cause of diseases classified elsewhere Status: Acute - Plan 32-year-old male with a history of IV drug abuse. The patient states that he uses IV heroin. 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 He also had septic emboli to the lung and spleen from the endocarditis. He subsequently went to group home and received IV antibiotics while in group home and has now returned to our facility for treatment of infective endocarditis. Sepsis, secondary to MSSA infective endocarditis/leukocytosis Patient has a history of IV drug use -continue IV Ancef until 05/22/2018 as per infectious disease recommendations -Blood Cx on 04/21: no growth in 5 days -WBC improved from yesterday was 15.6, today 12.6 -Monitor CBC, monitor signs and symptoms Pneumonia -Chest x-ray: Left upper lobe pneumonia -ID consulted appreciate input -Continue Ancef IV -continue Levaquin Monitor respiratory status add as needed duo nebs for shortness of breath Septic left knee s/p left knee arthrotomy with irrigation and debridement, performed nearly 4 weeks ago -surgical wound has healed, there are no signs of infections. Last seen by orthopedics on April 17 -stable, no edema -tolerating physical therapy without any significant difficulties. Patient is ambulatory and walks with a limp -Continue rehabilitation efforts with PT. Sinus tachycardia/hypotension -Likely secondary to deconditioning, infection -continue IV fluid , encourage increase fluid intake -Decrease metoprolol , Continue to monitor. Hep C/IVDU -likely related to IVDU -monitor signs and symptoms DVT Prophylaxis -increase ambulation Code Status: full code Discussed Condition With: patient and nurse d//w ID Dr. Hutchison Discharge Planning: Plan to discharge when cleared with ID and finished with IV antibiotic 05/22
[2018-05-20] MEDS: ceFAZolin 2 GM Premix Inj 2 GM/50 ML PIGGYBACK IV.SIG SCH ×5 (00:04→23:37)
[2018-05-20] MEDS: Sodium Chloride 0.45 % Inj 1,000 ML IV.CONT SCH ×2 (06:44→16:16)
[2018-05-20] MEDS: Metoprolol Tartrate 25 MG Tablet PO SCH ×2 (09:09→21:23)
[2018-05-20] MEDS: levoFLOXacin 750 MG Tablet PO SCH (09:10)
[2018-05-20] MEDS: Senna/Docusate Sodium 8.6/50 MG Tablet PO SCH ×2 (09:10→21:22)
[2018-05-20] MEDS: Ferrous Sulfate 325 MG Tablet PO SCH (11:47)
--- NOTE | 2018-05-20 11:52 | P.PNIM ---
Physical Exam Vital signs: Vital Signs 05/19/18 12:00 05/19/18 14:24 05/19/18 16:00 Temperature 97.9 F 97.8 F Pulse Rate 113 H 100 H 119 H Respiratory Rate 18 18 18 Blood Pressure 125/64 103/66 Pulse Oximetry 100 97 05/19/18 19:20 05/19/18 20:00 05/19/18 21:00 Temperature 98.6 F Pulse Rate 115 H 137 H Respiratory Rate 18 18 20 Blood Pressure 110/63 Pulse Oximetry 100 05/20/18 00:00 05/20/18 04:00 05/20/18 07:31 Temperature 98 F 98 F Pulse Rate 113 H 105 H 112 H Respiratory Rate 18 18 16 Blood Pressure 113/64 101/61 Pulse Oximetry 95 99 05/20/18 08:00 Temperature 98 F Pulse Rate 116 H Respiratory Rate 18 Blood Pressure 104/58 L Pulse Oximetry 99 Intake & Output 05/19/18 05/20/18 05/20/18 18:59 06:59 18:59 Intake Total 3590 / 3590 680 / 680 50 / 50 Output Total 1400 / 1400 1000 / 1000 Balance 2190 / 2190 -320 / -320 50 / 50 Intake: IV 2150 / 2150 50 / 50 50 / 50 1/2 Normal Saline Inj 1,000 ML 2000 / 2000 @ 100 mls/hr IV.CONT .Q10H [facility] Rx#:[id number] Ancef 2 GM Premix Inj 2 gm In 150 / 150 50 / 50 50 / 50 50 ml @ 100 mls/hr IV.SIG Q6H [facility] Rx#:[id number] Oral 1440 / 1440 630 / 630 Output: Urine 1400 / 1400 1000 / 1000 Other: Date of Last Bowel Movement 05/19/18 05/19/18 Results - Labs CBC & Chem 7: 05/19/18 05:25 05/19/18 05:25 Laboratory Results - last 24 hr 05/18/18 07:20 Urine Color Yellow Urine Clarity Hazy H Urine pH 6.0 Ur Specific [place] 1.014 Urine Protein Negative Urine Glucose (UA) Negative Urine Ketones Trace H Urine Occult Blood Negative Urine Nitrate Negative Urine Bilirubin Negative Urine Urobilinogen Less than 2 Ur Leukocyte Esterase Negative Urine RBC 3 Urine WBC 1 Urine Bacteria Moderate H Hyaline Casts 1 Urine Mucus Few H Urine Yeast Few H Micro UA Comment Culture indicated Urine Culture Comments Culture indicated Microbiology 05/18/18 07:20 Clean Catch Urine Urine Culture - Final 05/17/18 19:13 Blood - Peripheral Aerobic Blood Culture - Preliminary No growth in 3 days 05/17/18 19:13 Blood - Peripheral Anaerobic Blood Culture - Preliminary No growth in 3 days 05/17/18 19:08 Blood - Peripheral Aerobic Blood Culture - Preliminary No growth in 3 days 05/17/18 19:08 Blood - Peripheral Anaerobic Blood Culture - Preliminary No growth in 3 days Assessment and Plan - Assessment (1) Bacteremia Code(s): R78.81 - Bacteremia Status: Acute (2) Endocarditis due to methicillin susceptible Staphylococcus aureus (MSSA) Code(s): I33.0 - Acute and subacute infective endocarditis; B95.61 - Methicillin susceptible Staphylococcus aureus infection as the cause of diseases classified elsewhere Status: Acute - Plan 32-year-old male with a history of IV drug abuse. The patient states that he uses IV heroin. 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 He also had septic emboli to the lung and spleen from the endocarditis. He subsequently went to senior care and received IV antibiotics while in senior care and has now returned to our facility for treatment of infective endocarditis. Sepsis, secondary to MSSA infective endocarditis/leukocytosis Patient has a history of IV drug use -continue IV Ancef until 05/22/2018 as per infectious disease recommendations -Blood Cx on 04/21: no growth in 5 days -WBC improved from yesterday was 15.6, today 12.6 -Monitor CBC, monitor signs and symptoms Pneumonia -Chest x-ray: Left upper lobe pneumonia -ID consulted appreciate input -Continue Ancef IV -continue Levaquin Monitor respiratory status add as needed duo nebs for shortness of breath Septic left knee s/p left knee arthrotomy with irrigation and debridement, performed nearly 4 weeks ago -surgical wound has healed, there are no signs of infections. Last seen by orthopedics on April 17 -stable, no edema -tolerating physical therapy without any significant difficulties. Patient is ambulatory and walks with a limp -Continue rehabilitation efforts with PT. Sinus tachycardia/hypotension -Likely secondary to deconditioning, infection -continue IV fluid , encourage increase fluid intake -Decrease metoprolol , Continue to monitor. 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
--- NOTE | 2018-05-20 13:58 | P.PNIM ---
Subjective Interval history: Follow-up endocarditis, sepsis, pneumonia, shortness of breath, sinus tachycardia, and hypotension. Patient seen and examined, sitting in the bed stated getting breathing better, denies any shortness of breath. Patient denies any fever or chills. Patient stated he is using the breathing machine, and incentive spirometer for breathing exercises. Patient stated he was up all night arranging his plan to go home. Discussed his lifestyle change when he goes home and stated will do it right this time. Patient denies any headache or dizziness, denies any abdominal pain, nausea, vomiting, diarrhea or constipation. Patient stated doing well overall. Physical Exam Vital signs: Vital Signs 05/19/18 14:24 05/19/18 16:00 05/19/18 19:20 Temperature 97.8 F Pulse Rate 100 H 119 H 115 H Respiratory Rate 18 18 18 Blood Pressure 103/66 Pulse Oximetry 97 05/19/18 20:00 05/19/18 21:00 05/20/18 00:00 Temperature 98.6 F 98 F Pulse Rate 137 H 113 H Respiratory Rate 18 20 18 Blood Pressure 110/63 113/64 Pulse Oximetry 100 95 05/20/18 04:00 05/20/18 07:31 05/20/18 08:00 Temperature 98 F 98 F Pulse Rate 105 H 112 H 116 H Respiratory Rate 18 16 18 Blood Pressure 101/61 104/58 L Pulse Oximetry 99 99 Intake & Output 05/19/18 05/20/18 05/20/18 18:59 06:59 18:59 Intake Total 3590 / 3590 680 / 680 100 / 100 Output Total 1400 / 1400 1000 / 1000 Balance 2190 / 2190 -320 / -320 100 / 100 Intake: IV 2150 / 2150 50 / 50 100 / 100 1/2 Normal Saline Inj 1,000 ML 2000 / 2000 @ 100 mls/hr IV.CONT .Q10H [facility] Rx#:[id number] Ancef 2 GM Premix Inj 2 gm In 150 / 150 50 / 50 100 / 100 50 ml @ 100 mls/hr IV.SIG Q6H [facility] Rx#:[id number] Oral 1440 / 1440 630 / 630 Output: Urine 1400 / 1400 1000 / 1000 Other: Date of Last Bowel Movement 05/19/18 05/19/18 Narrative: GENERAL: Well-developed well-nourished, alert and oriented x3, with no apparent distress SKIN: Warm and dry. Left knee surgical scar healed, multiple tattoos in the body HEAD: Atraumatic. Normocephalic. EYES: Pupils equal and round. No scleral icterus. No injection or drainage. ENT: No nasal bleeding or discharge. Mucous membranes pink and moist. NECK: Trachea midline. No JVD. CARDIOVASCULAR: Regular rate and rhythm. + murmur RESPIRATORY: No accessory muscle use. Clear to auscultation. Breath sounds equal bilaterally. GASTROINTESTINAL: Abdomen flat, soft, non-tender, nondistended. Hepatic and splenic margins not palpable. MUSCULOSKELETAL: Extremities without clubbing, cyanosis, or edema. No obvious deformities. NEUROLOGICAL: Awake and alert. No obvious cranial nerve deficits. Motor grossly within normal limits. Five out of 5 muscle strength in the arms and legs. Normal speech. PSYCHIATRIC: Appropriate mood and affect; insight and judgment normal. Results - Labs CBC & Chem 7: 05/19/18 05:25 05/19/18 05:25 Microbiology 05/18/18 07:20 Clean Catch Urine Urine Culture - Final 05/17/18 19:13 Blood - Peripheral Aerobic Blood Culture - Preliminary No growth in 3 days 05/17/18 19:13 Blood - Peripheral Anaerobic Blood Culture - Preliminary No growth in 3 days 05/17/18 19:08 Blood - Peripheral Aerobic Blood Culture - Preliminary No growth in 3 days 05/17/18 19:08 Blood - Peripheral Anaerobic Blood Culture - Preliminary No growth in 3 days Assessment and Plan - Assessment (1) Bacteremia Code(s): R78.81 - Bacteremia Status: Acute (2) Endocarditis due to methicillin susceptible Staphylococcus aureus (MSSA) Code(s): I33.0 - Acute and subacute infective endocarditis; B95.61 - Methicillin susceptible Staphylococcus aureus infection as the cause of diseases classified elsewhere Status: Acute - Plan 32-year-old male with a history of IV drug abuse. The patient states that he uses IV heroin. 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 He also had septic emboli to the lung and spleen from the endocarditis. He subsequently went [facility] and received IV antibiotics while in [facility] and has now returned to our facility for treatment of infective endocarditis. Sepsis, secondary to MSSA infective endocarditis/leukocytosis Patient has a history of IV drug use -continue IV Ancef until 05/22/2018 as per infectious disease recommendations -Blood Cx on 04/21: no growth in 5 days, 05/17 blood Cx no growth in 3 days -WBC improved from yesterday was 12.6, today 7.8 -Monitor CBC, monitor signs and symptoms Pneumonia -Chest x-ray: Left upper lobe pneumonia -ID following -Continue Ancef IV -continue Levaquin -Monitor respiratory status add as needed duo nebs for shortness of breath Septic left knee s/p left knee arthrotomy with irrigation and debridement, performed nearly 4 weeks ago -surgical wound has healed, there are no signs of infections. Last seen by orthopedics on April 17 -stable, no edema -tolerating physical therapy without any significant difficulties. Patient is ambulatory and walks with a limp -Continue rehabilitation efforts with PT. Sinus tachycardia/hypotension -Likely secondary to deconditioning, infection -continue IV fluid , encourage increase fluid intake -Decrease metoprolol , Continue to monitor. Hep C/IVDU -likely related to IVDU -monitor signs and symptoms DVT Prophylaxis -increase ambulation Code Status: full code Discussed Condition With: patient and nurse Discharge Planning: Plan to discharge when cleared with ID and finished with IV antibiotic 05/22
[2018-05-21] MEDS: Sodium Chloride 0.45 % Inj 1,000 ML IV.CONT SCH (03:50)
[2018-05-21] MEDS: ceFAZolin 2 GM Premix Inj 2 GM/50 ML PIGGYBACK IV.SIG SCH ×3 (06:14→18:10)
[2018-05-21] MEDS: Metoprolol Tartrate 25 MG Tablet PO SCH ×2 (09:06→21:07)
[2018-05-21] MEDS: levoFLOXacin 750 MG Tablet PO SCH (09:06)
[2018-05-21] MEDS: Senna/Docusate Sodium 8.6/50 MG Tablet PO SCH ×2 (09:06→21:08)
[2018-05-21] MEDS: Ferrous Sulfate 325 MG Tablet PO SCH (15:26)
--- NOTE | 2018-05-21 17:58 | P.PNIM ---
Physical Exam Vital signs: Vital Signs 05/20/18 20:00 05/20/18 20:42 05/21/18 00:00 Temperature 98.4 F 99.0 F Pulse Rate 131 H 129 H 110 H Respiratory Rate 18 16 18 Blood Pressure 118/57 L 101/64 Pulse Oximetry 99 94 L 99 05/21/18 04:00 05/21/18 07:45 05/21/18 08:00 Temperature 98.1 F 98.2 F Pulse Rate 108 H 116 H 116 H Respiratory Rate 18 16 20 Blood Pressure 96/53 L 109/65 Pulse Oximetry 100 99 05/21/18 12:00 05/21/18 14:04 05/21/18 16:00 Temperature 97.6 F 98 F Pulse Rate 102 H 103 H 108 H Respiratory Rate 20 16 20 Blood Pressure 97/55 L 97/56 L Pulse Oximetry 100 98 Intake & Output 05/20/18 05/21/18 05/21/18 18:59 06:59 18:59 Intake Total 870 / 870 1580 / 1580 1050 / 1050 Output Total 1200 / 1200 1000 / 1000 Balance -330 / -330 580 / 580 1050 / 1050 Intake: IV 150 / 150 1100 / 1100 1050 / 1050 1/2 Normal Saline Inj 1,000 ML 1000 / 1000 1000 / 1000 @ 100 mls/hr IV.CONT .Q10H [facility] Rx#:[id number] Ancef 2 GM Premix Inj 2 gm In 150 / 150 100 / 100 50 / 50 50 ml @ 100 mls/hr IV.SIG Q6H [facility] Rx#:[id number] Oral 720 / 720 480 / 480 Output: Urine 1200 / 1200 1000 / 1000 Other: Date of Last Bowel Movement 05/19/18 05/19/18 05/19/18 Narrative: GENERAL: Comfortable. Alert and oriented x3. SKIN: Warm and dry. HEAD: Normocephalic. EYES: No scleral icterus. No injection or drainage. NECK: Supple, trachea midline. No JVD. CARDIOVASCULAR: Regular rate and rhythm without murmurs, gallops, or rubs. RESPIRATORY: Breath sounds equal bilaterally. No accessory muscle use. GASTROINTESTINAL: Abdomen soft, non-tender, nondistended. MUSCULOSKELETAL: No cyanosis, or edema. BACK: Nontender without obvious deformity. No CVA tenderness. Results - Labs CBC & Chem 7: 05/19/18 05:25 05/19/18 05:25 Microbiology 05/17/18 19:13 Blood - Peripheral Aerobic Blood Culture - Preliminary No growth in 4 days 05/17/18 19:13 Blood - Peripheral Anaerobic Blood Culture - Preliminary No growth in 4 days 05/17/18 19:08 Blood - Peripheral Aerobic Blood Culture - Preliminary No growth in 4 days 05/17/18 19:08 Blood - Peripheral Anaerobic Blood Culture - Preliminary No growth in 4 days Assessment and Plan - Assessment (1) Bacteremia Code(s): R78.81 - Bacteremia Status: Acute (2) Endocarditis due to methicillin susceptible Staphylococcus aureus (MSSA) Code(s): I33.0 - Acute and subacute infective endocarditis; B95.61 - Methicillin susceptible Staphylococcus aureus infection as the cause of diseases classified elsewhere Status: Acute - Plan 32-year-old male with a history of IV drug abuse. The patient states that he uses IV heroin. 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 He also had septic emboli to the lung and spleen from the endocarditis. He subsequently went to group home and received IV antibiotics while in group home and has now returned to our facility for treatment of infective endocarditis. Sepsis, secondary to MSSA infective endocarditis/leukocytosis Patient has a history of IV drug use -continue IV Ancef until 05/22/2018 as per infectious disease recommendations -Blood Cx on 04/21: no growth in 5 days, 05/17 blood Cx no growth in 3 days -WBC improved from yesterday was 12.6, today 7.8 -Monitor CBC, monitor signs and symptoms Pneumonia -Chest x-ray: Left upper lobe pneumonia -ID following -Continue Ancef IV -continue Levaquin -Monitor respiratory status add as needed duo nebs for shortness of breath = Continue Levaquin times 7 days Septic left knee s/p left knee arthrotomy with irrigation and debridement, performed nearly 4 weeks ago -surgical wound has healed, there are no signs of infections. Last seen by orthopedics on April 17 -stable, no edema -tolerating physical therapy without any significant difficulties. Patient is ambulatory and walks with a limp -Continue rehabilitation efforts with PT. Sinus tachycardia/hypotension -Likely secondary to deconditioning, infection -continue IV fluid , encourage increase fluid intake -Decrease metoprolol , Continue to monitor. Hep C/IVDU -likely related to IVDU -monitor signs and symptoms DVT Prophylaxis -increase ambulation Code Status: full code Discussed Condition With: Patient, nurse. Discharge Planning: Discharge tomorrow after IV antibiotics. Levofloxacin to good continue with stop date of 05/25
--- NOTE | 2018-05-21 18:06 | P.DS ---
Date of admission: 04/19/18 20:54 Primary care physician: UNKNOWN Brief History from admission: Mr. Garcia is 32-year-old male that was transferred from senior living to the ED with recent admission 03/29/18 - 04/17/18 for infective endocarditis, bacteremia secondary to MSSA, septic emboli in lungs, and splenic infarcts . The patient was here under an alias: Renea Lawson with . He had a left knee arthrotomy with irrigation and debridement of septic arthritis during prior hospitalization. Patient denies any fever or chills at the time of my visit but complains of pain over left knee and ankle. Pain is worse with movement and unrelieved by Tramadol given to the patient at the [facility]. He also reports chronic chest pain that has not changed since last admission. He is admitted at this time for sepsis with known source of infection - endocarditis and worsening leukocytosis with left shift and tachycardia. The patient has no access to primary care as he has just been released from senior living. DS: Diagnosis - Discharge Diagnosis (1) Bacteremia Status: Acute (2) Endocarditis due to methicillin susceptible Staphylococcus aureus (MSSA) Status: Acute DS: Medications - Discharge Medications Prescriptions: albuterol sulfate 2 puff INHALATION Q4-6H PRN 30 Days g PRN Reason: Shortness Of Breath Or Wheezing cyclobenzaprine 10 mg PO BID 30 Days #60 tab metoprolol tartrate 75 mg PO BID 30 Days #180 tab sennosides-docusate sodium [Senna Plus] 1 tab PO DAILY 30 Days #30 tab DS: Summary Hospital Course: Infectious disease was consulted and patient was treated with cefazolin IV to complete treatment course. After course of treatment completed, patient was discharged home.. Patient did have a history of left knee arthrotomy with irrigation debridement. PT followed during admission. Sutures were removed during hospitalization. For problem-based summary from most recent progress note, please see below. 32-year-old male with a history of IV drug abuse. The patient states that he uses IV heroin. 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 He also had septic emboli to the lung and spleen from the endocarditis. He subsequently went to senior living and received IV antibiotics while in senior living and has now returned to our facility for treatment of infective endocarditis. Sepsis, secondary to MSSA infective endocarditis/leukocytosis Patient has a history of IV drug use -continue IV Ancef until 05/22/2018 as per infectious disease recommendations -Blood Cx on 04/21: no growth in 5 days, 05/17 blood Cx no growth in 3 days -WBC improved from yesterday was 12.6, today 7.8 -Monitor CBC, monitor signs and symptoms Pneumonia -Chest x-ray: Left upper lobe pneumonia -ID following -Continue Ancef IV -continue Levaquin -Monitor respiratory status add as needed duo nebs for shortness of breath = Continue Levaquin times 7 days Septic left knee s/p left knee arthrotomy with irrigation and debridement, performed nearly 4 weeks ago -surgical wound has healed, there are no signs of infections. Last seen by orthopedics on April 17 -stable, no edema -tolerating physical therapy without any significant difficulties. Patient is ambulatory and walks with a limp -Continue rehabilitation efforts with PT. Sinus tachycardia/hypotension -Likely secondary to deconditioning, infection -continue IV fluid , encourage increase fluid intake -Decrease metoprolol , Continue to monitor. Hep C/IVDU -likely related to IVDU -monitor signs and symptoms DVT Prophylaxis -increase ambulation Code Status: full code Discussed Condition With: Patient, nurse. Discharge Planning: Discharge tomorrow after IV antibiotics. Levofloxacin to good continue with stop date of 05/25 - Time Spent with Patient Total time spent providing and/or coordinating discharge services: Greater than 30 minutes - Quality: VTE Deep Vein Thrombosis/Pulmonary Embolism Present on Admission: No Exam Vital signs: Vital Signs 05/20/18 20:00 05/20/18 20:42 05/21/18 00:00 Temperature 98.4 F 99.0 F Pulse Rate 131 H 129 H 110 H Respiratory Rate 18 16 18 Blood Pressure 118/57 L 101/64 Pulse Oximetry 99 94 L 99 05/21/18 04:00 05/21/18 07:45 05/21/18 08:00 Temperature 98.1 F 98.2 F Pulse Rate 108 H 116 H 116 H Respiratory Rate 18 16 20 Blood Pressure 96/53 L 109/65 Pulse Oximetry 100 99 05/21/18 12:00 05/21/18 14:04 05/21/18 16:00 Temperature 97.6 F 98 F Pulse Rate 102 H 103 H 108 H Respiratory Rate 20 16 20 Blood Pressure 97/55 L 97/56 L Pulse Oximetry 100 98 Intake & Output 05/20/18 05/21/18 05/21/18 18:59 06:59 18:59 Intake Total 870 / 870 1580 / 1580 1050 / 1050 Output Total 1200 / 1200 1000 / 1000 Balance -330 / -330 580 / 580 1050 / 1050 Intake: IV 150 / 150 1100 / 1100 1050 / 1050 1/2 Normal Saline Inj 1,000 ML 1000 / 1000 1000 / 1000 @ 100 mls/hr IV.CONT .Q10H [facility] Rx#:[id number] Ancef 2 GM Premix Inj 2 gm In 150 / 150 100 / 100 50 / 50 50 ml @ 100 mls/hr IV.SIG Q6H [facility] Rx#:[id number] Oral 720 / 720 480 / 480 Output: Urine 1200 / 1200 1000 / 1000 Other: Date of Last Bowel Movement 05/19/18 05/19/18 05/19/18 Results Procedures completed during hospitalization: no invasive procedures. Labs on day of discharge: Preliminary micro results at discharge 05/17/18 19:13 Aerobic Blood Culture - Preliminary Blood - Peripheral No growth in 4 days Anaerobic Blood Culture - Preliminary No growth in 4 days 05/17/18 19:08 Aerobic Blood Culture - Preliminary Blood - Peripheral No growth in 4 days Anaerobic Blood Culture - Preliminary No growth in 4 days - Impressions ITS Impressions Abdomen/Pelvis CT 04/20/18 00:00 CONCLUSION: 1. Multiple wedge-shaped perfusion defects involving the spleen suggestive of probable splenic infarcts. 2. Hepatosplenomegaly. 3. Peripheral cortical defects involving the kidneys bilaterally suggesting possible renal infarcts. 4. Some free fluid within the cul-de-sac. 5. Scattered cavitary lesions within the lungs which are described in detail on the CT of the chest report and may represent septic emboli or cavitary metastases. 6. Tiny bilateral pleural effusions with adjacent bibasilar atelectatic changes. Chest CT 04/20/18 00:00 CONCLUSION: 1. Multiple cavitary lesions bilaterally which could be consistent with septic emboli or cavitary metastases. Clinical correlation is recommended. 2. Multiple wedge-shaped areas of decreased perfusion within the spleen consistent with possible splenic infarcts. 3. Hepatosplenomegaly. 4. Tiny bilateral pleural effusions. 5. Bibasilar atelectasis. Chest X-Ray 05/17/18 00:00 CONCLUSION: Left upper lobe pneumonia. Recommend medical treatment and follow-up to resolution. Discharge Plan - Discharge Disposition Patient Disposition: 01 Discharge Home - Discharge Condition Condition: Good - Discharge Order Discharge Orders: Discharge Order (Routine); Ordered 05/22/18 Ordered By: Alejandro Kaur - Discharge Details Anticipated Discharge Date: 05/22/18 Discharge Comment: discharge 05/22 after am dose of cefazolin - Physicians Team Primary Care Provider: UNKNOWN, Attending Provider: Alejandro Kaur Other Providers: Jessie Lund MD ; Gege Hutchison MD
[2018-05-22 00:17] VITALS: RESP 16; TEMP 98.2
[2018-05-22] MEDS: ceFAZolin 2 GM Premix Inj 2 GM/50 ML PIGGYBACK IV.SIG SCH ×2 (00:27→06:10)
[2018-05-22] MEDS: Metoprolol Tartrate 25 MG Tablet PO SCH (08:39)
[2018-05-22] MEDS: Senna/Docusate Sodium 8.6/50 MG Tablet PO SCH (08:39)
[2018-05-22] MEDS: levoFLOXacin 750 MG Tablet PO SCH (08:39)
--- NOTE | 2018-05-22 08:47 | P.PNIM ---
Subjective Interval history: Patient says he is feeling well. Says he feels like going home. Physical Exam Vital signs: Vital Signs 05/21/18 12:00 05/21/18 14:04 05/21/18 16:00 Temperature 97.6 F 98 F Pulse Rate 103 H 103 H 106 H Respiratory Rate 20 16 20 Blood Pressure 97/55 L 97/56 L Pulse Oximetry 100 98 05/21/18 20:00 05/21/18 20:41 05/22/18 00:00 Temperature 97.7 F 98.2 F Pulse Rate 121 H 124 H 109 H Respiratory Rate 17 18 16 Blood Pressure 109/64 105/66 Pulse Oximetry 100 98 05/22/18 04:00 Temperature 98.2 F Pulse Rate 110 H Respiratory Rate 16 Blood Pressure 100/56 L Pulse Oximetry 99 Intake & Output 05/21/18 05/22/18 05/22/18 18:59 06:59 18:59 Intake Total 1660 / 1660 1060 / 1060 Output Total 850 / 850 850 / 850 Balance 810 / 810 210 / 210 Weight 57.5 kg Intake: IV 1100 / 1100 100 / 100 1/2 Normal Saline Inj 1,000 ML 1000 / 1000 @ 100 mls/hr IV.CONT .Q10H [facility] Rx#:[id number] Ancef 2 GM Premix Inj 2 gm In 100 / 100 100 / 100 50 ml @ 100 mls/hr IV.SIG Q6H [facility] Rx#:[id number] Oral 560 / 560 960 / 960 Output: Urine 850 / 850 850 / 850 Other: Date of Last Bowel Movement 05/19/18 05/22/18 # Bowel Movements 1 Narrative: GENERAL: Comfortable. Alert and oriented x3. No change on exam. SKIN: Warm and dry. HEAD: Normocephalic. EYES: No scleral icterus. No injection or drainage. NECK: Supple, trachea midline. No JVD. CARDIOVASCULAR: Regular rate and rhythm without murmurs, gallops, or rubs. RESPIRATORY: Breath sounds equal bilaterally. No accessory muscle use. GASTROINTESTINAL: Abdomen soft, non-tender, nondistended. MUSCULOSKELETAL: No cyanosis, or edema. BACK: Nontender without obvious deformity. No CVA tenderness. Results - Labs CBC & Chem 7: 05/19/18 05:25 05/19/18 05:25 Microbiology 05/17/18 19:13 Blood - Peripheral Aerobic Blood Culture - Preliminary No growth in 4 days 05/17/18 19:13 Blood - Peripheral Anaerobic Blood Culture - Preliminary No growth in 4 days 05/17/18 19:08 Blood - Peripheral Aerobic Blood Culture - Preliminary No growth in 4 days 05/17/18 19:08 Blood - Peripheral Anaerobic Blood Culture - Preliminary No growth in 4 days Assessment and Plan - Assessment (1) Bacteremia Code(s): R78.81 - Bacteremia Status: Acute (2) Endocarditis due to methicillin susceptible Staphylococcus aureus (MSSA) Code(s): I33.0 - Acute and subacute infective endocarditis; B95.61 - Methicillin susceptible Staphylococcus aureus infection as the cause of diseases classified elsewhere Status: Acute - Plan 32-year-old male with a history of IV drug abuse. The patient states that he uses IV heroin. 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 He also had septic emboli to the lung and spleen from the endocarditis. He subsequently went to senior care and received IV antibiotics while in senior care and has now returned to our facility for treatment of infective endocarditis. Sepsis, secondary to MSSA infective endocarditis/leukocytosis Patient has a history of IV drug use -continue IV Ancef until 05/22/2018 as per infectious disease recommendations -Blood Cx on 04/21: no growth in 5 days, 05/17 blood Cx no growth in 3 days -WBC improved from yesterday was 12.6, today 7.8 -Monitor CBC, monitor signs and symptoms Pneumonia -Chest x-ray: Left upper lobe pneumonia -ID following -Continue Ancef IV -continue Levaquin -Monitor respiratory status add as needed duo nebs for shortness of breath = Continue Levaquin x 7 days total = Discharge home with as needed albuterol inhaler Septic left knee s/p left knee arthrotomy with irrigation and debridement, performed nearly 4 weeks ago -surgical wound has healed, there are no signs of infections. Last seen by orthopedics on April 17 -stable, no edema -tolerating physical therapy without any significant difficulties. Patient is ambulatory and walks with a limp -Continue rehabilitation efforts with PT. Sinus tachycardia/hypotension -Likely secondary to deconditioning, infection -continue IV fluid , encourage increase fluid intake -Decrease metoprolol , Continue to monitor. Hep C/IVDU -likely related to IVDU -monitor signs and symptoms DVT Prophylaxis -increase ambulation Code Status: full code Discharge Planning: Discharge today after am dose of IV antibiotics. Levofloxacin to continue with stop date of 05/25
[2018-05-22 08:54] VITALS: BP 101/66; O2SAT 100
[2018-05-22 08:57] VITALS: PULSE 80
== END 2018-05-22 10:56 | disposition home or self-care (01) ==
LOC: NEPC 14:37 → NEDA 14:37 → NEPHCDU 18:55 → N04 04-20 17:40
PROVIDERS: ADMIT Internal Medicine; ATTEND Internal Medicine

== ENCOUNTER 2018-05-25 16:25 | Inpatient (IN) ==
[2018-05-25] MEDS ORDERED: Sod Chloride 0.9% Inj 800 ML IV.SIG SCH (17:00)
[2018-05-25] MEDS ORDERED: Sod Chloride 0.9% Inj 1,000 ML IV.SIG SCH ×2 (17:00→18:00)
--- NOTE | 2018-05-25 17:08 | XR ---
EXAM DATE: 05/25/2018 4:48 PM EDT AGE/SEX: 32 years / Male INDICATIONS: Fever CLINICAL DATA: This is the patient's initial encounter. Patient reports that signs and symptoms have been present for 1 day and indicates a pain score of 0/10. MEDICAL/SURGICAL HISTORY: . Endocarditis . COMPARISON: [facility] [place], CHEST 2V AP&LAT, 05/17/2018. . FINDINGS: Improving patchy airspace disease in the left upper lobe. Subtle linear parenchymal opacities in the right lower lung zone. The cardiomediastinal contours are unremarkable. Osseous structures are intac t. CONCLUSION: 1. Improving pneumonia in the left upper lobe. 2. New linear parenchymal opacities in the right lower lung zone, presumably atelectasis. Electronically signed by: Bk Carlson MD 05/25/2018 5:06 PM EDT
[2018-05-25 17:20] LABS: Baso % (Auto) 0.3 % (0.0-2.0); Eos % (Auto) 0.1 % (0.0-4.0); Hemoglobin 7.6 gm/dL (13.0-17.0); Lymph # (Auto) 0.8 th/mm3 (1.0-4.8); Lymph % (Auto) 8.5 % (9.0-44.0); Mean Corpuscular HGB Conc 31.7 % (32.0-36.0); Mean Corpuscular Hemoglobin 25.9 pg (27.0-34.0); Mean Corpuscular Volume 81.8 fL (80.0-100.0); Mean Platelet Volume 6.3 fL (7.0-11.0); Mono # (Auto) 0.5 th/mm3 (0.0-0.9); Mono % (Auto) 4.9 % (0.0-8.0); Neut # (Auto) 8.4 th/mm3 (1.8-7.7); Neut % (Auto) 86.2 % (16.0-70.0); Platelet Count 513 th/mm3 (150-450); Red Blood Count 2.94 mil/mm3 (4.50-5.90); Red Cell Distribution Width 18.5 % (11.6-17.2); White Blood Count 9.7 th/mm3 (4.0-11.0)
--- NOTE | 2018-05-25 17:27 | ED ---
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 The patient reports that he uses a scooter because of pain to his left knee after the septic arthritis, and he felt hot and weak and fell to the ground. He did not sustain any injuries during this fall, however someone saw him fall, and he requested that they call 911 to bring him to the emergency department. EVAC noted the patient to be hypotensive. Patient reports chronic shortness of breath. He denies using IV drugs since his prior admission. Denies alcohol use. Related Data Home Medications Medication Instructions Recorded Confirmed ferrous sulfate 325 mg PO DAILY 04/19/18 05/25/18 Previous Rx's Medication Instructions Recorded cyclobenzaprine 10 mg PO BID 30 Days #60 tab 05/21/18 metoprolol tartrate 75 mg PO BID 30 Days #180 tab 05/21/18 sennosides-docusate sodium [Senna 1 tab PO DAILY 30 Days #30 tab 05/21/18 Plus] albuterol sulfate 2 puff INHALATION Q4-6H PRN 30 05/22/18 Days g Allergies Allergy/AdvReac Type Severity Reaction Status Date / Time No Known Allergies Allergy Unverified 04/19/18 15:29 Review of Systems ROS: all other systems reviewed are negative [facility] Social History Social History Substance History: Past History Second Hand Smoke Exposure: Yes Smoking Status: Current every day smoker Tobacco Type: Cigarettes How Often Do You Have a Drink Containing Alcohol: Monthly or less Recent Travel in [facility] within the Last 8 Weeks: No Recent Out of Country Travel within the Last 8 Weeks: No Substance Abuse Detail Opiates: Substance Use Status: Early Remission Route Used Substance Abuse: Intravenously Reason for Use: Calm Down Immunization History Tetanus Immunization: Unsure Exam Narrative Exam Narrative: GENERAL: Well-developed, thin, awake, alert, no apparent distress. SKIN: Focused skin assessment warm/dry. No rashes. HEAD: Atraumatic. Normocephalic. EYES: Pupils equal and round. No scleral icterus. No injection or drainage. ENT: No nasal bleeding or discharge. Mucous membranes pink and moist. NECK: Trachea midline. No JVD. No nuchal rigidity. CARDIOVASCULAR: Regular rate and rhythm. RESPIRATORY: No accessory muscle use. Clear to auscultation. Breath sounds equal bilaterally. GASTROINTESTINAL: Abdomen soft, non-tender, nondistended. MUSCULOSKELETAL: Moderate bilateral lower extremity edema. Normal range of motion of all joints and extremities without focal warmth over any of his joints. NEUROLOGICAL: Awake and alert. No obvious cranial nerve deficits. Motor grossly within normal limits. Normal speech. PSYCHIATRIC: Appropriate mood and affect; insight and judgment normal. Course Initial Documented Vital Signs Temperature 98.6 F 05/25/18 16:39 Pulse Rate 106 H 05/25/18 16:39 Respiratory Rate 17 05/25/18 16:39 Blood Pressure 79/45 L 05/25/18 16:39 Pulse Oximetry 100 05/25/18 16:39 Last Documented Vital Signs Temperature 98.6 F 05/25/18 16:39 Pulse Rate 98 H 05/25/18 18:09 Respiratory Rate 17 05/25/18 18:09 Blood Pressure 85/52 L 05/25/18 18:09 Pulse Oximetry 100 05/25/18 18:09 Critical Care Time Total Critical Care Time: 35 Attestation: Aggregate critical care time was 35 minutes. Time to perform other separately billable procedures was not included in the critical care time. My time did not include minutes spent treating any other patients simultaneously or on activities that did not directly contribute to the patient's treatment. The services I provided to this patient were to treat and/or prevent clinically significant deterioration that could result in: , permanent disability, septic shock I provided critical care services requiring my management, as noted below: Chart data review, documentation time, medication orders and management, vital sign assessments/reviewing monitor data, ordering and reviewing lab tests, ordering and interpreting/reviewing x-rays and diagnostic studies, care of the patient and discussion of the patient with the admitting physicians. Medical Decision Making MDM Narrative Medical decision making narrative: Vital signs reviewed. Labs reviewed and are remarkable for a creatinine of 3.11 which is new for the patient as well as a lactate of 6.1. Hemoglobin is 7.6 which is around his baseline. Patient remains hypotensive despite receiving 2 L normal saline IV. He will be written for a third Liter. His mental status is normal and he has been ambulatory to and from the restroom. Chart was reviewed from his previous visit with bacteremia, and the patient was on Ancef. He was given a dose of Ancef here in the emergency department. I discussed the case with motor scooter repairer Dr. Sorensen who will admit the patient to his service. Medical Screen Exam Complete: Yes Emergency Medical Condition: Yes Differential Diagnosis Differential Diagnosis: Sepsis, bacteremia, dehydration, metabolic abnormality, endocarditis, substance abuse Lab Data Result diagrams: 05/25/18 16:50 05/25/18 16:50 Lab Results 05/25/18 05/25/18 05/25/18 Range/Units 16:50 16:50 16:55 WBC 9.7 (4.0-11.0) th/mm3 RBC 2.94 L (4.50-5.90) mil/mm3 Hgb 7.6 L (13.0-17.0) gm/dL Hct 24.0 L (39.0-51.0) % MCV 81.8 (80.0-100.0) fL MCH 25.9 L (27.0-34.0) pg MCHC 31.7 L (32.0-36.0) % RDW 18.5 H (11.6-17.2) % Plt Count 513 H (150-450) th/mm3 MPV 6.3 L (7.0-11.0) fL Neut % (Auto) 86.2 H (16.0-70.0) % Lymph % (Auto) 8.5 L (9.0-44.0) % Branch % (Auto) 4.9 (0.0-8.0) % Eos % (Auto) 0.1 (0.0-4.0) % Baso % (Auto) 0.3 (0.0-2.0) % Neut # (Auto) 8.4 H (1.8-7.7) th/mm3 Lymph # (Auto) 0.8 L (1.0-4.8) th/mm3 Branch # (Auto) 0.5 (0.0-0.9) th/mm3 Eos # (Auto) 0.0 (0.0-0.4) th/mm3 Baso # (Auto) 0.0 (0.0-0.2) th/mm3 WBC Differential . Differential Comment Auto diff final Sodium 139 (136-145) meq/L Potassium 4.9 (3.5-5.1) meq/L Chloride 104 (98-107) meq/L Carbon Dioxide 13.1 L (21.0-32.0) meq/L Anion Gap 22 H (5-15) meq/L BUN 42 H (7-18) mg/dL Creatinine 3.11 H (0.60-1.30) mg/dL Estimated GFR 23 L (>89) mL/min Random Glucose 74 (74-106) mg/dL Lactic Acid 6.1 H* (0.4-2.0) mmol/L Calcium 9.2 (8.5-10.1) mg/dL Total Bilirubin 0.7 (0.2-1.0) mg/dL AST 59 H (15-37) U/L ALT 34 (12-78) U/L Alkaline Phosphatase 88 (45-117) U/L Total Protein 8.1 (6.4-8.2) g/dL Albumin 2.8 L (3.4-5.0) g/dL Imaging Data Radiologist's impression: Chest X-Ray 05/25/18 16:48 CONCLUSION: 1. Improving pneumonia in the left upper lobe. 2. New linear parenchymal opacities in the right lower lung zone, presumably atelectasis. Discharge Plan Discharge Disposition Patient Disposition: 30 Still Patient Discharge Condition Condition: Fair Discharge Details Diagnosis: Sepsis Physicians Team ED Provider: Jake Willis Primary Care Provider: Primary Care Angela He Rxs /Orders / Referrals /Forms Prescriptions: No Action ferrous sulfate 325 mg (65 mg iron) Tablet 325 mg PO DAILY RF: 0 sennosides-docusate sodium [Senna Plus] 8.6-50 mg Tablet 1 tab PO DAILY 30 Days Qty: 30 RF: 0 metoprolol tartrate 25 mg Tablet 75 mg PO BID 30 Days Qty: 180 RF: 0 cyclobenzaprine 10 mg Tablet 10 mg PO BID 30 Days Qty: 60 RF: 0 albuterol sulfate 90 mcg/actuation Hfa Aerosol Inhaler 2 puff INHALATION Q4-6H PRN (Reason: Shortness Of Breath Or Wheezing) 30 Days RF: 0 Discharge Interventions Interventions: Vital Signs Last Done: 05/25/18 18:09 Status ED Status: With Doctor
[2018-05-25 17:36] LABS: Alanine Aminotransferase 34 U/L (12-78); Albumin 2.8 g/dL (3.4-5.0); Anion Gap 22 meq/L (5-15); Aspartate Aminotransferase 59 U/L (15-37); Blood Urea Nitrogen 42 mg/dL (7-18); Calcium 9.2 mg/dL (8.5-10.1); Carbon Dioxide 13.1 meq/L (21.0-32.0); Chloride 104 meq/L (98-107); Glomerular Filtration Rate 23 mL/min (>89); Glucose,Random 74 mg/dL (74-106); Potassium 4.9 meq/L (3.5-5.1); Sodium 139 meq/L (136-145)
[2018-05-25 17:38] LABS: Alkaline Phosphatase 88 U/L (45-117); Total Protein 8.1 g/dL (6.4-8.2)
[2018-05-25] MEDS ORDERED: Bisacodyl 10 MG Supp RECTAL PRN (19:34)
[2018-05-25] MEDS ORDERED: Temazepam 15 MG Capsule PO PRN (19:34)
[2018-05-25] MEDS ORDERED: Acetaminophen 325 MG Tablet PO PRN (19:34)
[2018-05-25] MEDS ORDERED: Vancomycin Consult Pharmacy OTHER PRN (19:39)
--- NOTE | 2018-05-25 19:41 | P.HPCC ---
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 The patient reports that he uses a scooter because of pain to his left knee after the septic arthritis, and he felt hot and weak and fell to the ground. He did not sustain any injuries during this fall, however someone saw him fall, and he requested that they call 911 to bring him to the emergency department. EVAC noted the patient to be hypotensive. Patient reports chronic shortness of breath. He denies using IV drugs since his prior admission. Denies alcohol use. Inpatient Certification: I certify that the inpatient services were ordered in accordance with Medicare regulations governing the order. 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 - Medical History Medical History: Medical History (Last Reviewed 05/19/18 @ 09:45 by Joana Oro) Bacteremia Endocarditis IV drug abuse Pulmonary embolism Septic embolism - Surgical History Surgical History: Surgical History (Last Reviewed 05/19/18 @ 09:45 by Joana Oro) History of atherectomy History of foot surgery - Family History Family History: Family History (Last Reviewed 05/17/18 @ 13:52 by Pau Adrian) Other No significant family history - Tobacco History Second Hand Smoke Exposure: Yes Tobacco Use In Past 30 Days: Yes Smoking Status: Current every day smoker Tobacco Type: Cigarettes - Alcohol History How Often Do You Have a Drink Containing Alcohol: Monthly or less - Substance Use History Substance History: Past History - Substance Use Type Opiates Status: Early Remission Route Used: Intravenously Reason for Use: Calm Down - Travel History Recent Travel in the [facility] Within the Last 8 Weeks: No Recent Travel Out of the Country Within the Last 8 Weeks: No - Immunization History Tetanus Immunization: Unsure Medications and Allergies Active Medications: Active Medications Acetaminophen (Tylenol) 650 mg PO Q6H PRN PRN Reason: PAIN 1-10 AND/OR FEVER >101F Al Hydroxide/Mg Hydroxide (Milk Of Magnesia Liq) 30 ml PO Q12H PRN PRN Reason: Mild Constipation Albuterol (Duoneb Neb (Prn)) 1 ampul NEB Q2HR NEB PRN PRN Reason: WHEEZING Bisacodyl (Dulcolax Supp) 10 mg RECTAL DAILY PRN PRN Reason: SEVERE CONSITIPATION Chlorhexidine Gluconate (Chlorhexidine 2% Cloth) 3 pack TOPICAL DAILY@0400 [facility] Stop: 05/31/18 03:59 Chlorhexidine Gluconate (Chlorhexidine 2% Cloth) 3 pack TOPICAL DAILY@0400 PRN PRN Reason: Extra cloth needed Stop: 05/31/18 03:59 Enoxaparin Sodium (Lovenox Inj) 40 mg SQ Q24H [facility] Hydromorphone HCl (Dilaudid Pf Inj) 1 mg IV.PUSH Q4H PRN PRN Reason: PAIN SCALE 6 TO 10 Sodium Chloride (Ns Inj) 1,000 mls @ 0 mls/hr IV.SIG .Q0M [facility] Last Infusion: 05/25/18 18:10 Dose: Infused Sodium Chloride (Ns Inj) 800 mls @ 0 mls/hr IV.SIG .Q0M [facility] Last Infusion: 05/25/18 18:11 Dose: Infused Sodium Chloride (Ns Inj) 1,000 mls @ 0 mls/hr IV.SIG BOLUS [facility] Sodium Chloride (Ns Inj) 1,000 mls @ 184 mls/hr IV.CONT .Q5H27M [facility] Lactulose (Lactulose Liq) 30 ml PO DAILY PRN PRN Reason: SEVERE CONSITIPATION Ondansetron HCl (Zofran Inj) 4 mg IV.PUSH Q6H PRN PRN Reason: NAUSEA OR VOMITING Pharmacy Profile Note (Vancomycin Consult Pharmacy) 1 each OTHER UNSCH PRN PRN Reason: Pharmacy to dose Senna/Docusate Sodium (Chuyita-Colace) 1 tab PO BID [facility] Sennosides (Senokot) 17.2 mg PO Q12H PRN PRN Reason: Moderate Constipation Sodium Chloride (Ns Flush) 2 ml IV.FLUSH BID [facility] Sodium Chloride (Ns Flush) 2 ml IV.FLUSH PRN PRN PRN Reason: FLUSH AFTER USING IV ACCESS Temazepam (Restoril) 15 mg PO HS PRN PRN Reason: INSOMNIA Allergies Allergy/AdvReac Type Severity Reaction Status Date / Time No Known Allergies Allergy Unverified 04/19/18 15:29 Home Medications Medication Instructions Recorded Confirmed Type ferrous sulfate 325 mg PO DAILY 04/19/18 05/25/18 History Results - Labs CBC & Chem 7: 05/25/18 16:50 05/25/18 16:50 Labs: Short CBC 05/25/18 Range/Units 16:50 WBC 9.7 (4.0-11.0) th/mm3 Hgb 7.6 L (13.0-17.0) gm/dL Hct 24.0 L (39.0-51.0) % Plt Count 513 H (150-450) th/mm3 BMP 05/25/18 16:50 Sodium 139 Potassium 4.9 Chloride 104 Carbon Dioxide 13.1 L BUN 42 H Creatinine 3.11 H Calcium 9.2 Liver Function 05/25/18 Range/Units 16:50 Total Bilirubin 0.7 (0.2-1.0) mg/dL AST 59 H (15-37) U/L ALT 34 (12-78) U/L Alkaline Phosphatase 88 (45-117) U/L Albumin 2.8 L (3.4-5.0) g/dL - Imaging Impressions Chest X-Ray 05/25/18 16:48 CONCLUSION: 1. Improving pneumonia in the left upper lobe. 2. New linear parenchymal opacities in the right lower lung zone, presumably atelectasis. Exam Vital signs: Vital Signs 05/25/18 16:39 05/25/18 16:48 05/25/18 18:09 Temperature 98.6 F Pulse Rate 106 H 98 H Respiratory Rate 17 17 Blood Pressure 79/45 L 85/52 L Pulse Oximetry 100 100 100 Intake & Output 05/25/18 05/25/18 05/26/18 06:59 18:59 06:59 Intake Total 1900 / 1900 Balance 1900 / 1900 Weight 54.431 kg Intake: IV 1900 / 1900 NS Inj 800 ML @ Wide Open IV. 1800 / 1800 SIG .Q0M [facility] Rx#:[id number] Ancef Inj 1,000 MG In NS Inj 100 / 100 100 ML @ 100 mls/hr IV.SIG ONCE ONE Rx#:[id number] - Constitutional mild distress - Routine HEENT Exam Head: Present: normocephalic, atraumatic Eye: Present: PERRL, normal accommodation ENT: Present: mucous membranes moist - Routine Neck Exam Present: supple, full ROM. Absent: JVD, carotid bruit - Routine Respiratory Exam Absent: accessory muscle use, rhonchi, stridor, wheezes - Routine Cardiovascular Exam Present: RRR, S1, S2 - Routine Abdominal Exam Present: soft, normoactive bowel sounds. Absent: tenderness, distended - Routine Extremities Exam Absent: cyanosis, clubbing, edema - Routine Skin Exam Present: intact. Absent: cyanosis, erythema - Routine Neurological Exam Present: alert, oriented X3, moving all extremities Septic Shock Reassessment Septic shock perfusion: reassessment completed Caprini VTE Risk Assessment Caprini VTE Risk Assessment: Moderate/High Risk (score >= 2) Caprini Risk Assessment Model: Point Value = 1 Point Value = 2 Point Value = 3 Point Value = 5 Age 41-60 Minor surgery BMI > 25 kg/m2 Swollen legs Varicose veins or History of unexplained or recurrent spontaneous Oral contraceptives or hormone replacement Sepsis (< 1 month) Serious lung disease, including pneumonia (< 1 month) Abnormal pulmonary function Acute myocardial infarction Congestive heart failure (< 1 month) History of inflammatory bowel disease Medical patient at bed rest Age 61-74 Arthroscopic surgery Major open surgery (> 45 min) Laparoscopic surgery (> 45 min) Malignancy Confined to bed (> 72 hours) Immobilizing plaster cast Central venous access Age >= 75 History of VTE Family history of VTE Factor V Leiden Prothrombin [id number] Lupus anticoagulant Anticardiolipin antibodies Elevated serum homocysteine Heparin-induced thrombocytopenia Other congenital or acquired thrombophilia Stroke (< 1 month) Elective arthroplasty Hip, pelvis, or leg fracture Acute spinal cord injury (< 1 month) Prophylaxis Regimen: Total Risk Factor Score Risk Level Prophylaxis Regimen 0-1 Low Early ambulation 2 Moderate Order ONE of the following: *Sequential Compression Device (SCD) *Heparin 5000 units SQ BID 3-4 Higher Order ONE of the following medications: *Heparin 5000 units SQ TID *Enoxaparin/Lovenox 40 mg SQ daily (WT < 150 kg, CrCl > 30 mL/min) *Enoxaparin/Lovenox 30 mg SQ daily (WT < 150 kg, CrCl > 10-29 mL/min) *Enoxaparin/Lovenox 30 mg SQ BID (WT < 150 kg, CrCl > 30 mL/min) AND/OR *Sequential Compression Device (SCD) 5 or more Highest Order ONE of the following medications: *Heparin 5000 units SQ TID (Preferred with Epidurals) *Enoxaparin/Lovenox 40 mg SQ daily (WT < 150 kg, CrCl > 30 mL/min) *Enoxaparin/Lovenox 30 mg SQ daily (WT < 150 kg, CrCl > 10-29 mL/min) *Enoxaparin/Lovenox 30 mg SQ BID (WT < 150 kg, CrCl > 30 mL/min) AND *Sequential Compression Device (SCD) Assessment and Plan - Assessment and Plan Plan: Hypertension -SIRS -Recent bacteremia and septic emboli -Broad-spectrum antibiotic -Reculture blood -Infectious disease consultation Acute kidney injury -Severe dehydration -Aggressive IV fluid resuscitation -Strict I's and O's -Monitor creatinine and electrolytes levels History of drug abuse -Monitor for withdrawal Anemia -Monitor H&H -Transfuse for hemoglobin less than 7 Pneumonia -Improving CXR -Continue antibiotic coverage -DuoNeb's as needed DVT GI prophylaxis -Teds SCDs -Subcu Lovenox if GFR improves -Regular diet 35 minutes of critical care
[2018-05-25] MEDS ORDERED: Vancomycin Inj 1,000 MG in Sodium Chlor 0.9% Inj 250 ML IV.SIG ONE (20:00)
[2018-05-25] MEDS: Sod Chloride 0.9% Inj 1,000 ML IV.CONT SCH (21:19)
[2018-05-25] MEDS: Enoxaparin Inj 40 MG/0.4 ML Syringe SQ SCH (21:59)
[2018-05-25] MEDS: Senna/Docusate Sodium 8.6/50 MG Tablet PO SCH (21:59)
[2018-05-25] MEDS: Piperacil/Tazo 3.375 GM Premix 50 ML IV.SIG SCH (22:01)
[2018-05-25 22:40] LABS: Creatine Kinase 180 U/L (39-308)
[2018-05-25 22:55] LABS: Creatine Kinase MB 1.9 ng/mL (0.5-3.6)
[2018-05-26] MEDS: Sod Chloride 0.9% Inj 1,000 ML IV.CONT SCH ×5 (02:59→16:04)
[2018-05-26] MEDS ORDERED: Chlorhexidine Gluconate 2% 1 Pack (2 Cloths) TOPICAL PRN (04:00)
[2018-05-26] MEDS: Piperacil/Tazo 3.375 GM Premix 50 ML IV.SIG SCH ×4 (04:07→22:14)
[2018-05-26] MEDS: Chlorhexidine Gluconate 2% 1 Pack (2 Cloths) TOPICAL SCH (04:07)
[2018-05-26 04:25] LABS: Baso # (Auto) 0.1 th/mm3 (0.0-0.2); Baso % (Auto) 0.7 % (0.0-2.0); Eos % (Auto) 0.6 % (0.0-4.0); Hemoglobin 8.6 gm/dL (13.0-17.0); Lymph # (Auto) 2.1 th/mm3 (1.0-4.8); Lymph % (Auto) 25.9 % (9.0-44.0); Mean Corpuscular Hemoglobin 25.9 pg (27.0-34.0); Mean Corpuscular Volume 81.1 fL (80.0-100.0); Mean Platelet Volume 6.2 fL (7.0-11.0); Mono # (Auto) 0.4 th/mm3 (0.0-0.9); Mono % (Auto) 4.5 % (0.0-8.0); Neut # (Auto) 5.4 th/mm3 (1.8-7.7); Neut % (Auto) 68.3 % (16.0-70.0); Platelet Count 490 th/mm3 (150-450); Red Blood Count 3.33 mil/mm3 (4.50-5.90); Red Cell Distribution Width 17.9 % (11.6-17.2); White Blood Count 7.9 th/mm3 (4.0-11.0)
[2018-05-26 04:31] LABS: Activated Partial Thrombo Time 37.3 sec (24.3-30.1); INR 1.3 Ratio; Prothrombin Time 13.3 sec (9.8-11.6)
[2018-05-26 04:58] LABS: Alanine Aminotransferase 34 U/L (12-78); Albumin 2.4 g/dL (3.4-5.0); Alkaline Phosphatase 122 U/L (45-117); Anion Gap 17 meq/L (5-15); Aspartate Aminotransferase 68 U/L (15-37); Blood Urea Nitrogen 35 mg/dL (7-18); Carbon Dioxide 16.1 meq/L (21.0-32.0); Chloride 106 meq/L (98-107); Glomerular Filtration Rate 39 mL/min (>89); Glucose,Random 79 mg/dL (74-106); Magnesium 2.2 mg/dL (1.5-2.5); Phosphorus 4.8 mg/dL (2.5-4.9); Potassium 3.3 meq/L (3.5-5.1); Sodium 139 meq/L (136-145); Total Protein 7.1 g/dL (6.4-8.2); Vancomycin,Random 14.6 Comment
[2018-05-26] MEDS: Senna/Docusate Sodium 8.6/50 MG Tablet PO SCH ×2 (09:10→20:22)
--- NOTE | 2018-05-26 12:54 | P.PNCC ---
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 The patient reports that he uses a scooter because of pain to his left knee after the septic arthritis, and he felt hot and weak and fell to the ground. He did not sustain any injuries during this fall, however someone saw him fall, and he requested that they call 911 to bring him to the emergency department. EVAC noted the patient to be hypotensive. Patient reports chronic shortness of breath. He denies using IV drugs since his prior admission. Denies alcohol use. 05/26: Patient admitted to [facility] [place] overnight, started on broad-spectrum antibiotics. Objective Vital Signs / I&O: Vital Signs 05/25/18 16:39 05/25/18 16:48 05/25/18 18:09 Temperature 98.6 F Pulse Rate 106 H 98 H Respiratory Rate 17 17 Blood Pressure 79/45 L 85/52 L Pulse Oximetry 100 100 100 05/25/18 20:34 05/25/18 21:00 05/25/18 21:12 Temperature 97.8 F Pulse Rate 104 H Respiratory Rate 20 24 Blood Pressure 91/56 L 99/58 L 94/57 L Pulse Oximetry 98 96 05/25/18 21:14 05/25/18 21:15 05/25/18 21:30 Temperature Pulse Rate 104 H Respiratory Rate 27 H Blood Pressure 99/58 L 110/62 Pulse Oximetry 92 L 96 98 05/25/18 21:34 05/25/18 21:45 05/25/18 22:00 Temperature Pulse Rate 104 H 103 H 101 H Respiratory Rate 24 22 Blood Pressure 94/54 L 93/55 L Pulse Oximetry 96 99 94 L 05/25/18 22:30 05/25/18 23:00 05/25/18 23:13 Temperature Pulse Rate 101 H 104 H Respiratory Rate 21 22 Blood Pressure 92/55 L 93/60 L Pulse Oximetry 87 L 100 100 05/25/18 23:30 05/26/18 00:00 05/26/18 00:30 Temperature 97.9 F Pulse Rate 104 H 102 H 100 H Respiratory Rate 23 21 19 Blood Pressure 96/61 L 98/62 L 101/63 Pulse Oximetry 100 89 L 100 05/26/18 01:00 05/26/18 01:30 05/26/18 02:00 Temperature Pulse Rate 102 H 102 H 104 H Respiratory Rate 19 20 20 Blood Pressure 99/63 L 101/63 105/62 Pulse Oximetry 100 100 100 05/26/18 02:30 05/26/18 03:00 05/26/18 03:30 Temperature Pulse Rate 104 H 104 H 101 H Respiratory Rate 22 21 21 Blood Pressure 101/64 101/63 103/66 Pulse Oximetry 100 100 100 05/26/18 04:00 05/26/18 04:31 05/26/18 05:00 Temperature 97.3 F L Pulse Rate 104 H 108 H 109 H Respiratory Rate 26 H 52 H 24 Blood Pressure 100/66 152/66 H 104/66 Pulse Oximetry 100 85 L 100 05/26/18 05:01 05/26/18 05:31 05/26/18 06:00 Temperature Pulse Rate 109 H 109 H 109 H Respiratory Rate 24 26 H 22 Blood Pressure 104/66 109/76 116/67 Pulse Oximetry 100 94 L 100 05/26/18 06:30 05/26/18 07:00 05/26/18 07:30 Temperature Pulse Rate 109 H 104 H 102 H Respiratory Rate 20 16 18 Blood Pressure 96/63 L 106/65 109/65 Pulse Oximetry 100 100 100 05/26/18 08:00 05/26/18 08:30 05/26/18 09:00 Temperature Pulse Rate 104 H 106 H 106 H Respiratory Rate 21 22 20 Blood Pressure 108/70 97/74 L Pulse Oximetry 100 100 100 05/26/18 09:01 05/26/18 09:30 05/26/18 10:00 Temperature Pulse Rate 105 H 104 H 112 H Respiratory Rate 21 22 21 Blood Pressure 116/74 114/76 112/76 Pulse Oximetry 97 100 99 05/26/18 10:30 05/26/18 11:00 05/26/18 11:31 Temperature Pulse Rate 110 H 108 H 109 H Respiratory Rate 22 19 21 Blood Pressure 104/79 109/76 124/81 Pulse Oximetry 100 100 98 05/26/18 12:00 05/26/18 12:01 Temperature Pulse Rate 109 H 109 H Respiratory Rate 22 21 Blood Pressure 120/74 Pulse Oximetry 98 100 Intake & Output 05/25/18 05/26/18 05/26/18 18:59 06:59 18:59 Intake Total 1900 / 1900 1350 / 1350 1410 / 1410 Output Total 0 / 0 Balance 1900 / 1900 1350 / 1350 1410 / 1410 Weight 54.431 kg 62.5 kg Intake: IV 1900 / 1900 1350 / 1350 1050 / 1050 NS Inj 1,000 ML @ 184 mls/hr IV 1000 / 1000 1000 / 1000 .CONT .Q5H27M [facility] Rx#:[id number] Zosyn 3.375 GM Premix 50 ML @ 100 / 100 50 / 50 100 mls/hr IV.SIG Q6H [facility] Rx#: [id number] NS Inj 800 ML @ Wide Open IV. 1800 / 1800 SIG .Q0M [facility] Rx#:[id number] Vancomycin Inj 1,000 MG In NS 250 / 250 Inj 250 ML @ 250 mls/hr IV.SIG ONCE ONE Rx#:[id number] Ancef Inj 1,000 MG In NS Inj 100 / 100 100 ML @ 100 mls/hr IV.SIG ONCE ONE Rx#:[id number] Oral 0 / 0 360 / 360 Output: Urine 0 / 0 Other: Date of Last Bowel Movement 05/25/18 # Bowel Movements 0 Weight On Admission 60 kg Result Diagrams: 05/26/18 03:50 05/26/18 03:50 Objective Remarks: GEN: Well-appearing, resting comfortably in bed HEENT: NCAT NECK: Trachea midline CARDIO: Borderline tachy, regular PULM: Clear to auscultation bilaterally, strong cough ABD/GI: Soft, non-tender, non-distended EXT/MSK: No peripheral edema SKIN: Warm and well-perfused NEURO: A&Ox3, conversational, no focal neuro deficits PSYCH: Calm, appropriate affect Assessment and Plan - Assessment and Plan Plan: 32yM with history of IVDA and MSSA bacteremia/ endocarditis/ septic embolic/ septic arthritis of L knee presenting with hypotension and suspected sepsis NEURO: -Dilaudid PRN pain -Tylenol PRN pain/ fever -Monitor for signs of withdrawal CARDIO: -Off pressors -Consider repeat echo PULM: -Incentive spirometry -PRN duonebs -Antibiotics as detailed below F/E/N: -Regular diet -Continue IVF but decrease to 84 mL/hr RENAL: -Is/Os, does not need Enciso catheter -BUN/ creat improving with volume resuscitation ID: -Continue vanco/ zosyn -MRSA swab positive -Blood cultures pending, previously had MSSA endocarditis -ID consult PROPHY: -SCDs, lovenox -No indication for stress ulcer prophylaxis OVERALL: Patient is improving, OK to transfer to hospitalist service in AM. Counseling/ Coordination of Care: Total critical care time spent is 35 minutes. This includes examining the patient, gathering history from someone other than the patient (i.e. chart review), discussing the patient's care with other providers, managing the patient's blood pressure and ventilator settings, ordering and interpreting radiologic studies, ordering and interpreting laboratory values, managing the patient's sedation requirements, re-evaluation at frequent intervals, and documentation. Amount of time is separate from teaching, counseling the patient and/or family, and exclusive of procedures. To help prompt me to consider important information that might be impacting today's encounter and assessment, information from prior notes written by myself or my colleagues may have been "brought forward" into today's note. My signature on this note, however, is an attestation that I personally performed the exam, history, and/or decision-making noted today, and, unless otherwise indicated, the interactions with patient, family, and staff as well as the review of records all occurred today. I also attest that the listed assessment and stated plan reflect my best clinical judgment today based on the combination of historical information, prior notes, and today's exam/ interactions. Code Status: Full
--- NOTE | 2018-05-26 14:41 | P.CONID ---
History of Present Illness Service: Infectious Disease Consult date: 05/26/18 Requesting Physician: Anish Sorensen Reason for Consult: Evaluation and mment of hypotension ? 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 The patient reports that he uses a scooter because of pain to his left knee after the septic arthritis, and he felt hot and weak and fell to the ground. He did not sustain any injuries during this fall, however someone saw him fall, and he requested that they call 911 to bring him to the emergency department. EVAC noted the patient to be hypotensive. Patient reports chronic shortness of breath. He denies using IV drugs since his prior admission. Denies alcohol use. He reports multiple falls in last few days. He reports he has been outdoors all day and has been drinking enough water although may not be keeping up with loses. He reports being compliant with his medications post discharge. On admission patient was alert, oriented, no focal weakness. He was noted to have low blood pressure and labs showed high creatinine. ID was consulted for evaluation and Mment of hypotension/sepsis in patient with recent treatment for endocarditis. Review of Systems other (not reliable.) [facility], [facility] - History History Provided By: Patient - Medical History Medical History: Medical History (Last Reviewed 05/19/18 @ 09:45 by Joana Oro) Bacteremia Endocarditis IV drug abuse Pulmonary embolism Septic embolism - Surgical History Surgical History: Surgical History (Last Reviewed 05/19/18 @ 09:45 by Joana Oro) History of atherectomy History of foot surgery - Family History Family History: Family History (Last Reviewed 05/17/18 @ 13:52 by Pau Adrian) Other No significant family history - Tobacco History Second Hand Smoke Exposure: Yes Tobacco Use In Past 30 Days: Yes Smoking Status: Current every day smoker Tobacco Type: Cigarettes - Alcohol History How Often Do You Have a Drink Containing Alcohol: Monthly or less - Substance Use History Substance History: Active Abuse - Substance Use Type Opiates Type: Heroin (early this morning) , Marijuana Status: Active Route Used: By Mouth, Intravenously Frequency: Whenever he can get his hands on it. Last Used: Early this AM 05/25/2018 Reason for Use: Calm Down Comment: Homeless/ No family/ Depressed - Travel History Recent Travel in the [place] Within the Last 8 Weeks: No Recent Travel Out of the Country Within the Last 8 Weeks: No - Immunization History Tetanus Immunization: <5 Years Hx Influenza Vaccine This Season: No Medications and Allergies Active Medications: Active Medications Acetaminophen (Tylenol) 650 mg PO Q6H PRN PRN Reason: PAIN 1-10 AND/OR FEVER >101F Al Hydroxide/Mg Hydroxide (Milk Of Hakan Escamilla) 30 ml PO Q12H PRN PRN Reason: Mild Constipation Albuterol (Duoneb Neb (Prn)) 1 ampul NEB Q2HR NEB PRN PRN Reason: WHEEZING Bisacodyl (Dulcolax Supp) 10 mg RECTAL DAILY PRN PRN Reason: SEVERE CONSITIPATION Chlorhexidine Gluconate (Chlorhexidine 2% Cloth) 3 pack TOPICAL DAILY@0400 [facility] Stop: 05/31/18 03:59 Last Admin: 05/26/18 04:07 Dose: Not Given Chlorhexidine Gluconate (Chlorhexidine 2% Cloth) 3 pack TOPICAL DAILY@0400 PRN PRN Reason: Extra cloth needed Stop: 05/31/18 03:59 Enoxaparin Sodium (Lovenox Inj) 40 mg SQ Q24H [facility] Last Admin: 05/25/18 21:59 Dose: 40 mg Hydromorphone HCl (Dilaudid Pf Inj) 1 mg IV.PUSH Q4H PRN PRN Reason: PAIN SCALE 6 TO 10 Sodium Chloride (Ns Inj) 1,000 mls @ 0 mls/hr IV.SIG BOLUS LEONIDES Sodium Chloride (Ns Inj) 1,000 mls @ 84 mls/hr IV.CONT .[id number] [facility] Last Admin: 05/26/18 10:08 Dose: 184 mls/hr Piperacillin/Tazobactam/Dextrose (Zosyn 3.375 Gm Premix) 50 mls @ 100 mls/hr IV.SIG Q6H [facility] Last Infusion: 05/26/18 10:38 Dose: Infused Vancomycin HCl 1,000 mg/ (Sodium Chloride) 250 mls @ 250 mls/hr IV.SIG Q24H LEONIDES Lactulose (Lactulose Liq) 30 ml PO DAILY PRN PRN Reason: SEVERE CONSITIPATION Ondansetron HCl (Zofran Inj) 4 mg IV.PUSH Q6H PRN PRN Reason: NAUSEA OR VOMITING Last Admin: 05/26/18 04:07 Dose: 4 mg Pharmacy Profile Note (Vancomycin Consult Pharmacy) 1 each OTHER UNSCH PRN PRN Reason: Pharmacy to dose Senna/Docusate Sodium (Chuyita-Colace) 1 tab PO BID [facility] Last Admin: 05/26/18 09:10 Dose: 1 tab Sennosides (Senokot) 17.2 mg PO Q12H PRN PRN Reason: Moderate Constipation Sodium Chloride (Ns Flush) 2 ml IV.FLUSH BID [facility] Last Admin: 05/26/18 09:00 Dose: Not Given Sodium Chloride (Ns Flush) 2 ml IV.FLUSH UNSCH PRN PRN Reason: FLUSH AFTER USING IV ACCESS Temazepam (Restoril) 15 mg PO HS PRN PRN Reason: INSOMNIA Allergies Allergy/AdvReac Type Severity Reaction Status Date / Time No Known Allergies Allergy Unverified 04/19/18 15:29 Home Medications Medication Instructions Recorded Confirmed Type ferrous sulfate 325 mg PO DAILY 04/19/18 05/25/18 History metoprolol tartrate 75 mg PO TID 05/25/18 05/25/18 History sennosides-docusate sodium [Senna 1 tab PO DAILY PRN 05/25/18 05/25/18 History Plus] Exam Vital signs: Vital Signs 05/25/18 16:39 05/25/18 16:48 05/25/18 18:09 Temperature 98.6 F Pulse Rate 106 H 98 H Respiratory Rate 17 17 Blood Pressure 79/45 L 85/52 L Pulse Oximetry 100 100 100 05/25/18 20:34 05/25/18 21:00 05/25/18 21:12 Temperature 97.8 F Pulse Rate 104 H Respiratory Rate 20 24 Blood Pressure 91/56 L 99/58 L 94/57 L Pulse Oximetry 98 96 05/25/18 21:14 05/25/18 21:15 05/25/18 21:30 Temperature Pulse Rate 104 H Respiratory Rate 27 H Blood Pressure 99/58 L 110/62 Pulse Oximetry 92 L 96 98 05/25/18 21:34 05/25/18 21:45 05/25/18 22:00 Temperature Pulse Rate 104 H 103 H 101 H Respiratory Rate 24 22 Blood Pressure 94/54 L 93/55 L Pulse Oximetry 96 99 94 L 05/25/18 22:30 05/25/18 23:00 05/25/18 23:13 Temperature Pulse Rate 101 H 104 H Respiratory Rate 21 22 Blood Pressure 92/55 L 93/60 L Pulse Oximetry 87 L 100 100 05/25/18 23:30 05/26/18 00:00 05/26/18 00:30 Temperature 97.9 F Pulse Rate 104 H 102 H 100 H Respiratory Rate 23 21 19 Blood Pressure 96/61 L 98/62 L 101/63 Pulse Oximetry 100 89 L 100 05/26/18 01:00 05/26/18 01:30 05/26/18 02:00 Temperature Pulse Rate 102 H 102 H 104 H Respiratory Rate 19 20 20 Blood Pressure 99/63 L 101/63 105/62 Pulse Oximetry 100 100 100 05/26/18 02:30 05/26/18 03:00 05/26/18 03:30 Temperature Pulse Rate 104 H 104 H 101 H Respiratory Rate 22 21 21 Blood Pressure 101/64 101/63 103/66 Pulse Oximetry 100 100 100 05/26/18 04:00 05/26/18 04:31 05/26/18 05:00 Temperature 97.3 F L Pulse Rate 104 H 108 H 109 H Respiratory Rate 26 H 52 H 24 Blood Pressure 100/66 152/66 H 104/66 Pulse Oximetry 100 85 L 100 05/26/18 05:01 05/26/18 05:31 05/26/18 06:00 Temperature Pulse Rate 109 H 109 H 109 H Respiratory Rate 24 26 H 22 Blood Pressure 104/66 109/76 116/67 Pulse Oximetry 100 94 L 100 05/26/18 06:30 05/26/18 07:00 05/26/18 07:30 Temperature Pulse Rate 109 H 104 H 102 H Respiratory Rate 20 16 18 Blood Pressure 96/63 L 106/65 109/65 Pulse Oximetry 100 100 100 05/26/18 08:00 05/26/18 08:30 05/26/18 09:00 Temperature Pulse Rate 104 H 106 H 106 H Respiratory Rate 21 22 20 Blood Pressure 108/70 97/74 L Pulse Oximetry 100 100 100 05/26/18 09:01 05/26/18 09:30 05/26/18 10:00 Temperature Pulse Rate 105 H 104 H 112 H Respiratory Rate 21 22 21 Blood Pressure 116/74 114/76 112/76 Pulse Oximetry 97 100 99 05/26/18 10:30 05/26/18 11:00 05/26/18 11:31 Temperature Pulse Rate 110 H 108 H 109 H Respiratory Rate 22 19 21 Blood Pressure 104/79 109/76 124/81 Pulse Oximetry 100 100 98 05/26/18 12:00 05/26/18 12:01 05/26/18 12:30 Temperature Pulse Rate 109 H 109 H 106 H Respiratory Rate 22 21 18 Blood Pressure 120/74 115/74 Pulse Oximetry 98 100 100 05/26/18 13:00 05/26/18 13:49 Temperature Pulse Rate 107 H 114 H Respiratory Rate 18 23 Blood Pressure 111/74 Pulse Oximetry 100 100 Intake & Output 05/25/18 05/26/18 05/26/18 18:59 06:59 18:59 Intake Total 1900 / 1900 1350 / 1350 1660 / 1660 Output Total 0 / 0 1000 / 1000 Balance 1900 / 1900 1350 / 1350 660 / 660 Weight 54.431 kg 62.5 kg Intake: IV 1900 / 1900 1350 / 1350 1050 / 1050 NS Inj 1,000 ML @ 184 mls/hr IV 1000 / 1000 1000 / 1000 .CONT .Q5H27M [facility] Rx#:[id number] Zosyn 3.375 GM Premix 50 ML @ 100 / 100 50 / 50 100 mls/hr IV.SIG Q6H LEONIDES Rx#: [id number] NS Inj 800 ML @ Wide Open IV. 1800 / 1800 SIG .Q0M [facility] Rx#:[id number] Vancomycin Inj 1,000 MG In NS 250 / 250 Inj 250 ML @ 250 mls/hr IV.SIG ONCE ONE Rx#:[id number] Ancef Inj 1,000 MG In NS Inj 100 / 100 100 ML @ 100 mls/hr IV.SIG ONCE ONE Rx#:[id number] Oral 0 / 0 610 / 610 Output: Urine 0 / 0 1000 / 1000 Other: Date of Last Bowel Movement 05/25/18 # Bowel Movements 0 Weight On Admission 60 kg Narrative: GENERAL: Well-nourished well-developed, not in acute distress SKIN: Cool and dry, no generalized rash HEAD: Atraumatic. Normocephalic. No temporal or scalp tenderness. EYES: Pupils equal round and reactive. Scleral icterus. No injection or drainage. No petechia ENT: Nothing abnormal detected NECK: Trachea midline. Supple, nontender, no meningeal signs. CARDIOVASCULAR: HS audible. RESPIRATORY: Clear to auscultation bilaterally. GASTROINTESTINAL: Abdomen soft nontender. MUSCULOSKELETAL: Extremities without clubbing, cyanosis. NEUROLOGICAL: Alert oriented 3. Nonfocal. Psych cooperative IV line sites ok. Results - Labs CBC & Chem 7: 05/26/18 03:50 05/26/18 18:22 Labs: Laboratory Results - last 24 hr 05/25/18 05/25/18 05/25/18 16:50 16:50 16:50 WBC 9.7 RBC 2.94 L Hgb 7.6 L Hct 24.0 L MCV 81.8 MCH 25.9 L MCHC 31.7 L RDW 18.5 H Plt Count 513 H MPV 6.3 L Neut % (Auto) 86.2 H Lymph % (Auto) 8.5 L [place] % (Auto) 4.9 Eos % (Auto) 0.1 Baso % (Auto) 0.3 Neut # (Auto) 8.4 H Lymph # (Auto) 0.8 L [place] # (Auto) 0.5 Eos # (Auto) 0.0 Baso # (Auto) 0.0 WBC Differential . Differential Comment Auto diff final PT INR APTT Sodium 139 Potassium 4.9 Chloride 104 Carbon Dioxide 13.1 L Anion Gap 22 H BUN 42 H Creatinine 3.11 H Estimated GFR 23 L Random Glucose 74 Lactic Acid Calcium 9.2 Phosphorus Magnesium Total Bilirubin 0.7 AST 59 H ALT 34 Alkaline Phosphatase 88 Total Creatine Kinase 180 CK-MB (CK-2) 1.9 Total Protein 8.1 Albumin 2.8 L Nasal Screen MRSA (PCR) Random Vancomycin 05/25/18 05/25/18 05/25/18 16:55 19:50 21:20 WBC RBC Hgb Hct MCV MCH MCHC RDW Plt Count MPV Neut % (Auto) Lymph % (Auto) [place] % (Auto) Eos % (Auto) Baso % (Auto) Neut # (Auto) Lymph # (Auto) [place] # (Auto) Eos # (Auto) Baso # (Auto) WBC Differential Differential Comment PT INR APTT Sodium Potassium Chloride Carbon Dioxide Anion Gap BUN Creatinine Estimated GFR Random Glucose Lactic Acid 6.1 H* 2.9 H Calcium Phosphorus Magnesium Total Bilirubin AST ALT Alkaline Phosphatase Total Creatine Kinase CK-MB (CK-2) Total Protein Albumin Nasal Screen MRSA (PCR) Mrsa detected Random Vancomycin 05/26/18 05/26/18 05/26/18 03:45 03:50 03:50 WBC 7.9 RBC 3.33 L Hgb 8.6 L Hct 27.0 L MCV 81.1 MCH 25.9 L MCHC 32.0 RDW 17.9 H Plt Count 490 H MPV 6.2 L Neut % (Auto) 68.3 Lymph % (Auto) 25.9 [place] % (Auto) 4.5 Eos % (Auto) 0.6 Baso % (Auto) 0.7 Neut # (Auto) 5.4 Lymph # (Auto) 2.1 [place] # (Auto) 0.4 Eos # (Auto) 0.0 Baso # (Auto) 0.1 WBC Differential . Differential Comment Auto diff final PT 13.3 H INR 1.3 APTT 37.3 H Sodium 139 Potassium 3.3 L D Chloride 106 Carbon Dioxide 16.1 L Anion Gap 17 H BUN 35 H Creatinine 1.99 H Estimated GFR 39 L Random Glucose 79 Lactic Acid Calcium 8.0 L D Phosphorus 4.8 Magnesium 2.2 Total Bilirubin 0.3 AST 68 H ALT 34 Alkaline Phosphatase 122 H Total Creatine Kinase CK-MB (CK-2) Total Protein 7.1 D Albumin 2.4 L Nasal Screen MRSA (PCR) Random Vancomycin 14.6 - Imaging Impressions Chest X-Ray 05/25/18 16:48 CONCLUSION: 1. Improving pneumonia in the left upper lobe. 2. New linear parenchymal opacities in the right lower lung zone, presumably atelectasis. Assessment and Plan - Plan Rule out sepsis, bacteremia. Hypotension likely due to prerenal(dehydration), heat stroke, less likely to be sepsis. Will follow cultures and clinically to decide. Acute renal failure: likely prerenal from dehydration. Recent treatment for endocarditis. Recs: Continue Zosyn IV for now. If blood cultures negative at 72 hours will likely stop all antibiotics. Will check 2D ECHO to follow up on valves. Follow cultures Follow clinical course. dw patient
--- NOTE | 2018-05-26 15:57 | P.PN ---
Subjective Interval history: In bed appears sleepy No fever or chills. No n/v/d/c. Physical Exam Vital signs: Vital Signs 05/25/18 16:39 05/25/18 16:48 05/25/18 18:09 Temperature 98.6 F Pulse Rate 106 H 98 H Respiratory Rate 17 17 Blood Pressure 79/45 L 85/52 L Pulse Oximetry 100 100 100 05/25/18 20:34 05/25/18 21:00 05/25/18 21:12 Temperature 97.8 F Pulse Rate 104 H Respiratory Rate 20 24 Blood Pressure 91/56 L 99/58 L 94/57 L Pulse Oximetry 98 96 05/25/18 21:14 05/25/18 21:15 05/25/18 21:30 Temperature Pulse Rate 104 H Respiratory Rate 27 H Blood Pressure 99/58 L 110/62 Pulse Oximetry 92 L 96 98 05/25/18 21:34 05/25/18 21:45 05/25/18 22:00 Temperature Pulse Rate 104 H 103 H 101 H Respiratory Rate 24 22 Blood Pressure 94/54 L 93/55 L Pulse Oximetry 96 99 94 L 05/25/18 22:30 05/25/18 23:00 05/25/18 23:13 Temperature Pulse Rate 101 H 104 H Respiratory Rate 21 22 Blood Pressure 92/55 L 93/60 L Pulse Oximetry 87 L 100 100 05/25/18 23:30 05/26/18 00:00 05/26/18 00:30 Temperature 97.9 F Pulse Rate 104 H 102 H 100 H Respiratory Rate 23 21 19 Blood Pressure 96/61 L 98/62 L 101/63 Pulse Oximetry 100 89 L 100 05/26/18 01:00 05/26/18 01:30 05/26/18 02:00 Temperature Pulse Rate 102 H 102 H 104 H Respiratory Rate 19 20 20 Blood Pressure 99/63 L 101/63 105/62 Pulse Oximetry 100 100 100 05/26/18 02:30 05/26/18 03:00 05/26/18 03:30 Temperature Pulse Rate 104 H 104 H 101 H Respiratory Rate 22 21 21 Blood Pressure 101/64 101/63 103/66 Pulse Oximetry 100 100 100 05/26/18 04:00 05/26/18 04:31 05/26/18 05:00 Temperature 97.3 F L Pulse Rate 104 H 108 H 109 H Respiratory Rate 26 H 52 H 24 Blood Pressure 100/66 152/66 H 104/66 Pulse Oximetry 100 85 L 100 05/26/18 05:01 05/26/18 05:31 05/26/18 06:00 Temperature Pulse Rate 109 H 109 H 109 H Respiratory Rate 24 26 H 22 Blood Pressure 104/66 109/76 116/67 Pulse Oximetry 100 94 L 100 05/26/18 06:30 05/26/18 07:00 05/26/18 07:30 Temperature Pulse Rate 109 H 104 H 102 H Respiratory Rate 20 16 18 Blood Pressure 96/63 L 106/65 109/65 Pulse Oximetry 100 100 100 05/26/18 08:00 05/26/18 08:30 05/26/18 09:00 Temperature Pulse Rate 104 H 106 H 106 H Respiratory Rate 21 22 20 Blood Pressure 108/70 97/74 L Pulse Oximetry 100 100 100 05/26/18 09:01 05/26/18 09:30 05/26/18 10:00 Temperature Pulse Rate 105 H 104 H 112 H Respiratory Rate 21 22 21 Blood Pressure 116/74 114/76 112/76 Pulse Oximetry 97 100 99 05/26/18 10:30 05/26/18 11:00 05/26/18 11:31 Temperature Pulse Rate 110 H 108 H 109 H Respiratory Rate 22 19 21 Blood Pressure 104/79 109/76 124/81 Pulse Oximetry 100 100 98 05/26/18 12:00 05/26/18 12:01 05/26/18 12:30 Temperature Pulse Rate 109 H 109 H 106 H Respiratory Rate 22 21 18 Blood Pressure 120/74 115/74 Pulse Oximetry 98 100 100 05/26/18 13:00 05/26/18 13:49 05/26/18 14:00 Temperature Pulse Rate 107 H 114 H 112 H Respiratory Rate 18 23 20 Blood Pressure 111/74 Pulse Oximetry 100 100 89 L 05/26/18 15:00 Temperature Pulse Rate 108 H Respiratory Rate 16 Blood Pressure Pulse Oximetry 100 Intake & Output 05/25/18 05/26/18 05/26/18 18:59 06:59 18:59 Intake Total 1900 / 1900 1350 / 1350 1660 / 1660 Output Total 0 / 0 1000 / 1000 Balance 1900 / 1900 1350 / 1350 660 / 660 Weight 54.431 kg 62.5 kg Intake: IV 1900 / 1900 1350 / 1350 1050 / 1050 NS Inj 1,000 ML @ 184 mls/hr IV 1000 / 1000 1000 / 1000 .CONT .Q5H27M [facility] Rx#:[id number] Zosyn 3.375 GM Premix 50 ML @ 100 / 100 50 / 50 100 mls/hr IV.SIG Q6H [facility]ON[facility] Rx#: [id number] NS Inj 800 ML @ Wide Open IV. 1800 / 1800 SIG .Q0M [facility] Rx#:[id number] Vancomycin Inj 1,000 MG In NS 250 / 250 Inj 250 ML @ 250 mls/hr IV.SIG ONCE ONE Rx#:[id number] Ancef Inj 1,000 MG In NS Inj 100 / 100 100 ML @ 100 mls/hr IV.SIG ONCE ONE Rx#:[id number] Oral 0 / 0 610 / 610 Output: Urine 0 / 0 1000 / 1000 Other: Date of Last Bowel Movement 05/25/18 # Bowel Movements 0 Weight On Admission 60 kg Narrative: GENERAL: 32 yo male, well nourished well developed patient, appears in nad. CARDIOVASCULAR: Regular rate and rhythm without murmurs, gallops, or rubs. RESPIRATORY: Breath sounds equal bilaterally. No accessory muscle use. GASTROINTESTINAL: Abdomen soft, non-tender, nondistended. MUSCULOSKELETAL: No cyanosis, or edema. BACK: Nontender without obvious deformity. No CVA tenderness. Results - Labs CBC & Chem 7: 05/26/18 03:50 05/26/18 03:50 Laboratory Results - last 24 hr 05/25/18 05/25/18 05/25/18 16:50 16:50 16:50 WBC 9.7 RBC 2.94 L Hgb 7.6 L Hct 24.0 L MCV 81.8 MCH 25.9 L MCHC 31.7 L RDW 18.5 H Plt Count 513 H MPV 6.3 L Neut % (Auto) 86.2 H Lymph % (Auto) 8.5 L [place] % (Auto) 4.9 Eos % (Auto) 0.1 Baso % (Auto) 0.3 Neut # (Auto) 8.4 H Lymph # (Auto) 0.8 L [place] # (Auto) 0.5 Eos # (Auto) 0.0 Baso # (Auto) 0.0 WBC Differential . Differential Comment Auto diff final PT INR APTT Sodium 139 Potassium 4.9 Chloride 104 Carbon Dioxide 13.1 L Anion Gap 22 H BUN 42 H Creatinine 3.11 H Estimated GFR 23 L Random Glucose 74 Lactic Acid Calcium 9.2 Phosphorus Magnesium Total Bilirubin 0.7 AST 59 H ALT 34 Alkaline Phosphatase 88 Total Creatine Kinase 180 CK-MB (CK-2) 1.9 Total Protein 8.1 Albumin 2.8 L Nasal Screen MRSA (PCR) Random Vancomycin 05/25/18 05/25/18 05/25/18 16:55 19:50 21:20 WBC RBC Hgb Hct MCV MCH MCHC RDW Plt Count MPV Neut % (Auto) Lymph % (Auto) [place] % (Auto) Eos % (Auto) Baso % (Auto) Neut # (Auto) Lymph # (Auto) [place] # (Auto) Eos # (Auto) Baso # (Auto) WBC Differential Differential Comment PT INR APTT Sodium Potassium Chloride Carbon Dioxide Anion Gap BUN Creatinine Estimated GFR Random Glucose Lactic Acid 6.1 H* 2.9 H Calcium Phosphorus Magnesium Total Bilirubin AST ALT Alkaline Phosphatase Total Creatine Kinase CK-MB (CK-2) Total Protein Albumin Nasal Screen MRSA (PCR) Mrsa detected Random Vancomycin 05/26/18 05/26/18 05/26/18 03:45 03:50 03:50 WBC 7.9 RBC 3.33 L Hgb 8.6 L Hct 27.0 L MCV 81.1 MCH 25.9 L MCHC 32.0 RDW 17.9 H Plt Count 490 H MPV 6.2 L Neut % (Auto) 68.3 Lymph % (Auto) 25.9 [place] % (Auto) 4.5 Eos % (Auto) 0.6 Baso % (Auto) 0.7 Neut # (Auto) 5.4 Lymph # (Auto) 2.1 [place] # (Auto) 0.4 Eos # (Auto) 0.0 Baso # (Auto) 0.1 WBC Differential . Differential Comment Auto diff final PT 13.3 H INR 1.3 APTT 37.3 H Sodium 139 Potassium 3.3 L D Chloride 106 Carbon Dioxide 16.1 L Anion Gap 17 H BUN 35 H Creatinine 1.99 H Estimated GFR 39 L Random Glucose 79 Lactic Acid Calcium 8.0 L D Phosphorus 4.8 Magnesium 2.2 Total Bilirubin 0.3 AST 68 H ALT 34 Alkaline Phosphatase 122 H Total Creatine Kinase CK-MB (CK-2) Total Protein 7.1 D Albumin 2.4 L Nasal Screen MRSA (PCR) Random Vancomycin 14.6 Microbiology 05/25/18 16:50 Blood - Peripheral Aerobic Blood Culture - Preliminary No growth in 1 day 05/25/18 16:50 Blood - Peripheral Anaerobic Blood Culture - Preliminary No growth in 1 day 05/25/18 16:55 Blood - Peripheral Aerobic Blood Culture - Preliminary No growth in 1 day 05/25/18 16:55 Blood - Peripheral Anaerobic Blood Culture - Preliminary No growth in 1 day - Imaging Impressions Chest X-Ray 05/25/18 16:48 CONCLUSION: 1. Improving pneumonia in the left upper lobe. 2. New linear parenchymal opacities in the right lower lung zone, presumably atelectasis. Assessment and Plan - Plan 32 yo M with history of IVDA and MSSA bacteremia/ endocarditis/ septic embolic/ septic arthritis of L knee presenting with hypotension and suspected sepsis IVDA and MSSA bacteremia. Endocarditis Septic embolic Septic arthritis of L knee Hypotension and severe sepsis on admission NEURO: -Dilaudid PRN pain -Tylenol PRN pain/ fever -Monitor for signs of withdrawal CARDIO: -Off pressors -Consider repeat echo PULM: -Incentive spirometry -PRN duonebs -Antibiotics as detailed below F/E/N: -Regular diet -Continue IVF but decrease to 84 mL/hr RENAL: -Is/Os, does not need Enciso catheter -BUN/ creat improving with volume resuscitation ID: -Continue vanco/ zosyn -MRSA swab positive -Blood cultures pending, previously had MSSA endocarditis -ID consult PROPHY: -SCDs, lovenox -No indication for stress ulcer prophylaxis DC plan : pending improvement and clearance by ID Transfer to med surg floor
[2018-05-26 19:33] LABS: Calcium 7.9 mg/dL (8.5-10.1); Carbon Dioxide 20.2 meq/L (21.0-32.0); Potassium 3.1 meq/L (3.5-5.1)
--- NOTE | 2018-05-26 20:09 | ECG ---
Date Performed: 05/25/2018 Time Performed: 19:45:41 PTAGE: 32 years EKG: SINUS TACHYCARDIA WITH SHORT UT INTERVAL MODERATE T-WAVE ABNORMALITY, CONSIDER LATERAL ISCH EMIA MODERATE T-WAVE ABNORMALITY, CONSIDER INFERIOR ISCHEMIA ABNORMAL ECG PREVIOUS TRACING : 05/25/2018 19.45 Since the previous tracing, no significant change noted DOCTOR: Oscar Trejo Interpretating Date/Time 05/26/2018 20:09:09
[2018-05-26] MEDS: Enoxaparin Inj 40 MG/0.4 ML Syringe SQ SCH (20:22)
[2018-05-26] MEDS: HYDROmorphone PF Inj 2 MG/ML Vial IV.PUSH PRN (20:22)
[2018-05-26] MEDS ORDERED: Vancomycin Inj 1,000 MG in Sodium Chlor 0.9% Inj 250 ML IV.SIG SCH (21:00)
[2018-05-27] MEDS: Piperacil/Tazo 3.375 GM Premix 50 ML IV.SIG SCH ×4 (04:18→23:57)
[2018-05-27] MEDS: Sod Chloride 0.9% Inj 1,000 ML IV.CONT SCH ×3 (04:18→16:43)
[2018-05-27] MEDS: Chlorhexidine Gluconate 2% 1 Pack (2 Cloths) TOPICAL SCH (04:18)
[2018-05-27 06:21] LABS: Calcium 7.8 mg/dL (8.5-10.1); Carbon Dioxide 20.7 meq/L (21.0-32.0)
[2018-05-27] MEDS: Senna/Docusate Sodium 8.6/50 MG Tablet PO SCH ×2 (09:17→20:56)
[2018-05-27] MEDS ORDERED: Magnesium Oxide 400 MG Tablet PO ONE (09:57)
--- NOTE | 2018-05-27 10:16 | P.PN ---
Subjective Interval history: He is in bed appears in not acute distress at this time however noted with low potassium encourage p.o. intake. Blood pressure is into the lower side will give no fever or chills no nausea or vomiting. Has generalized body ache Physical Exam Vital signs: Vital Signs 05/26/18 10:30 05/26/18 11:00 05/26/18 11:31 Temperature Pulse Rate 110 H 108 H 109 H Respiratory Rate 22 19 21 Blood Pressure 104/79 109/76 124/81 Pulse Oximetry 100 100 98 05/26/18 12:00 05/26/18 12:01 05/26/18 12:30 Temperature Pulse Rate 109 H 109 H 106 H Respiratory Rate 22 21 18 Blood Pressure 120/74 115/74 Pulse Oximetry 98 100 100 05/26/18 13:00 05/26/18 13:49 05/26/18 14:00 Temperature Pulse Rate 107 H 114 H 112 H Respiratory Rate 18 23 20 Blood Pressure 111/74 Pulse Oximetry 100 100 89 L 05/26/18 15:00 05/26/18 16:00 05/26/18 16:08 Temperature 97.6 F Pulse Rate 108 H 104 H 104 H Respiratory Rate 16 17 16 Blood Pressure 116/67 Pulse Oximetry 100 100 100 05/26/18 17:00 05/26/18 18:00 05/26/18 19:00 Temperature Pulse Rate 102 H 102 H 103 H Respiratory Rate 15 16 18 Blood Pressure 107/70 108/69 Pulse Oximetry 100 100 100 05/26/18 19:10 05/26/18 20:00 05/26/18 21:07 Temperature 98.3 F Pulse Rate 101 H 125 H Respiratory Rate 20 34 H Blood Pressure 108/73 Pulse Oximetry 99 99 05/26/18 21:34 05/26/18 22:00 05/26/18 22:33 Temperature Pulse Rate 115 H 110 H Respiratory Rate 16 24 17 Blood Pressure 135/104 H Pulse Oximetry 100 90 L 05/26/18 22:42 05/26/18 23:00 05/27/18 00:00 Temperature 99 F Pulse Rate 109 H 115 H 117 H Respiratory Rate 21 22 27 H Blood Pressure 118/76 Pulse Oximetry 100 95 94 L 05/27/18 01:00 05/27/18 02:00 05/27/18 03:00 Temperature Pulse Rate 110 H 110 H 112 H Respiratory Rate 23 22 17 Blood Pressure Pulse Oximetry 100 100 100 05/27/18 04:00 05/27/18 06:00 Temperature 98.6 F Pulse Rate 103 H 103 H Respiratory Rate 17 Blood Pressure Pulse Oximetry 100 Intake & Output 05/26/18 05/27/18 05/27/18 18:59 06:59 18:59 Intake Total 2710 / 2710 1820 / 1820 1000 / 1000 Output Total 1000 / 1000 700 / 700 Balance 1710 / 1710 1120 / 1120 1000 / 1000 Weight 60.328 kg Intake: IV 2100 / 2100 1100 / 1100 1000 / 1000 NS Inj 1,000 ML @ 84 mls/hr IV. 2000 / 2000 1000 / 1000 1000 / 1000 CONT .[id number] [facility] Rx#:[id number] Zosyn 3.375 GM Premix 50 ML @ 100 / 100 100 / 100 100 mls/hr IV.SIG Q6H [facility] Rx#: [id number] Oral 610 / 610 720 / 720 Output: Urine 1000 / 1000 700 / 700 Other: Date of Last Bowel Movement 05/25/18 # Bowel Movements 0 Narrative: GENERAL: 32 yo male, well nourished well developed patient, appears in nad. CARDIOVASCULAR: Regular rate and rhythm without murmurs, gallops, or rubs. RESPIRATORY: Breath sounds equal bilaterally. No accessory muscle use. GASTROINTESTINAL: Abdomen soft, non-tender, nondistended. MUSCULOSKELETAL: No cyanosis, or edema. BACK: Nontender without obvious deformity. No CVA tenderness. Results - Labs CBC & Chem 7: 05/26/18 03:50 05/27/18 05:00 Laboratory Results - last 24 hr 05/26/18 05/27/18 18:22 05:00 Sodium 139 138 Potassium 3.1 L 3.0 L Chloride 109 H 107 Carbon Dioxide 20.2 L 20.7 L Anion Gap 10 10 BUN 28 H 23 H Creatinine 1.74 H 1.33 H Estimated GFR 45 L 62 L Random Glucose 110 H 91 Calcium 7.9 L 7.8 L Microbiology 05/25/18 16:50 Blood - Peripheral Aerobic Blood Culture - Preliminary No growth in 1 day 05/25/18 16:50 Blood - Peripheral Anaerobic Blood Culture - Preliminary No growth in 1 day 05/25/18 16:55 Blood - Peripheral Aerobic Blood Culture - Preliminary No growth in 1 day 05/25/18 16:55 Blood - Peripheral Anaerobic Blood Culture - Preliminary No growth in 1 day Assessment and Plan - Plan 32 yo M with history of IVDA and MSSA bacteremia/ endocarditis/ septic embolic/ septic arthritis of L knee presenting with hypotension and suspected sepsis IVDA and MSSA bacteremia. Endocarditis Septic embolic Septic arthritis of L knee Hypotension and severe sepsis on admission NEURO: -Dilaudid PRN pain -Tylenol PRN pain/ fever -Monitor for signs of withdrawal CARDIO: -Off pressors -Consider repeat echo PULM: -Incentive spirometry -PRN duonebs -Antibiotics as detailed below F/E/N: -Regular diet -Continue IVF but decrease to 84 mL/hr RENAL: -Is/Os, does not need Enciso catheter -BUN/ creat improving with volume resuscitation ID: -Continue vanco/ zosyn -MRSA swab positive -Blood cultures pending, previously had MSSA endocarditis -ID consult PROPHY: -SCDs, lovenox -No indication for stress ulcer prophylaxis DC plan : pending improvement and clearance by ID Transfer to med surg floor
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
[2018-05-27] MEDS: HYDROmorphone PF Inj 2 MG/ML Vial IV.PUSH PRN ×2 (16:43→20:55)
[2018-05-27] MEDS: Enoxaparin Inj 40 MG/0.4 ML Syringe SQ SCH (20:56)
[2018-05-28] MEDS: Sod Chloride 0.9% Inj 1,000 ML IV.CONT SCH ×3 (00:01→17:04)
[2018-05-28] MEDS: Piperacil/Tazo 3.375 GM Premix 50 ML IV.SIG SCH ×2 (04:54→10:05)
[2018-05-28] MEDS: Chlorhexidine Gluconate 2% 1 Pack (2 Cloths) TOPICAL SCH (04:55)
[2018-05-28] MEDS ORDERED: HYDROmorphone PF Inj 2 MG/ML Vial IV.PUSH PRN (07:59)
[2018-05-28] MEDS: Senna/Docusate Sodium 8.6/50 MG Tablet PO SCH ×2 (08:01→21:07)
[2018-05-28 08:27] LABS: Anion Gap 4 meq/L (5-15); Blood Urea Nitrogen 10 mg/dL (7-18); Calcium 7.6 mg/dL (8.5-10.1); Carbon Dioxide 25.7 meq/L (21.0-32.0); Chloride 109 meq/L (98-107); Glomerular Filtration Rate Greater Than 89 mL/min (>89); Glucose,Random 78 mg/dL (74-106); Potassium 4.6 meq/L (3.5-5.1); Sodium 139 meq/L (136-145)
--- NOTE | 2018-05-28 11:31 | P.PN ---
Subjective Interval history: Follow-up visit IV drug use, recent admission 04/19/18 for endocarditis with septic emboli to the lungs and spleen, HTN, [place]. Patient seen and examined today laying in bed. Reports he is doing well. States he is able to ambulate going to the bathroom. Continues to have chest pain, shortness of breath on and off but not worsening compared to prior. Denies pain and discomfort. Denies headaches, dizziness. Denies fevers, chills, n/v/d. Denies dysuria. Physical Exam Vital signs: Vital Signs 05/27/18 12:00 05/27/18 14:00 05/27/18 17:04 Temperature 98.8 F Pulse Rate 104 H 102 H Respiratory Rate 19 16 Blood Pressure 100/70 Pulse Oximetry 99 05/27/18 20:00 05/28/18 00:00 05/28/18 04:00 Temperature 98.1 F 98 F 98 F Pulse Rate 107 H 112 H 108 H Respiratory Rate 17 16 17 Blood Pressure 112/74 116/74 115/72 Pulse Oximetry 100 98 99 05/28/18 07:38 05/28/18 08:00 05/28/18 11:01 Temperature 98.8 F Pulse Rate 107 H Respiratory Rate 16 20 16 Blood Pressure 114/81 Pulse Oximetry 99 Intake & Output 05/27/18 05/28/18 05/28/18 18:59 06:59 18:59 Intake Total 1100 / 1100 340 / 340 50 / 50 Output Total 800 / 800 Balance 300 / 300 340 / 340 50 / 50 Weight 60.3 kg Intake: IV 1100 / 1100 100 / 100 50 / 50 NS Inj 1,000 ML @ 84 mls/hr IV. 1000 / 1000 CONT .[id number] [facility] Rx#:[id number] Zosyn 3.375 GM Premix 50 ML @ 100 / 100 100 / 100 50 / 50 100 mls/hr IV.SIG Q6H [facility] Rx#: [id number] Oral 240 / 240 Output: Urine 800 / 800 Other: # Voids 4 Date of Last Bowel Movement 05/25/18 05/25/18 Narrative: GENERAL: This is a well-nourished, well-developed patient, in no apparent distress. SKIN: Warm and dry. Track [place] BLE HEENT: Normocephalic. Pupils equal round and reactive. Nose without bleeding. Airway patent. NECK: Trachea midline. CARDIOVASCULAR: Tachycardia with mild murmur. RESPIRATORY: Clear to auscultation. Breath sounds equal bilaterally. No wheezes , rales, or rhonchi. GASTROINTESTINAL: Abdomen soft, non-tender, nondistended. Bowel Sounds normoactive x4. MUSCULOSKELETAL: Extremities without clubbing, cyanosis, or edema. NEUROLOGICAL: Awake and alert. No focal neuro deficit. Moves all extremities. Normal speech. Results - Labs CBC & Chem 7: 05/26/18 03:50 05/28/18 06:37 Laboratory Results - last 24 hr 05/27/18 05/27/18 05/28/18 11:41 14:35 06:37 Sodium 139 Potassium 4.6 D Chloride 109 H Carbon Dioxide 25.7 Anion Gap 4 L BUN 10 Creatinine 0.94 Estimated GFR Greater than 89 POC Glucose 137 H Random Glucose 78 Lactic Acid 2.6 H Calcium 7.6 L Microbiology 05/25/18 16:50 Blood - Peripheral Aerobic Blood Culture - Preliminary No growth in 3 days 05/25/18 16:50 Blood - Peripheral Anaerobic Blood Culture - Preliminary No growth in 3 days 05/25/18 16:55 Blood - Peripheral Aerobic Blood Culture - Preliminary No growth in 3 days 05/25/18 16:55 Blood - Peripheral Anaerobic Blood Culture - Preliminary No growth in 3 days Assessment and Plan - Plan 32-year-old male with history of IV drug abuse, recent admission on 04/19/18 to our hospital, discharged on 05/22/18, admitted for endocarditis with septic emboli to the lungs and spleen with previous history of septic arthritis of the left knee with arthrotomy, discharged home with Levaquin, returns for an evaluation of generalized weakness. IVDA MSSA bacteremia, Sepsis Previous Endocarditis Previous Septic emboli Previous Septic arthritis of left knee -On IV Zosyn. Discussed with Dr. Lund. States to DC IV Zosyn for now - NGTD -2D ECHO pending -Followed by infectious disease, appreciate recommendation -Pain management [place] 7.5/325, Dilaudid only for breakthrough pain. Wean off pain medication Pneumonia -Chest x-ray improving pneumonia in the left upper lobe. New linear parenchymal opacities in the right lower lung zone, presumably atelectasis -Complaints of shortness of breath/dyspnea today -Duonebs Scheduled, PRN Tachycardia -Encourage p.o. fluid hydration. BP within normal. -Possibly secondary to previous septic emboli, previous endocarditis -IV fluids DVT prop Lovenox Code Status: Full code Discussed Condition With: Patient, nursing, Dr. Lund Discharge Planning: Plan to DC home when clinically improved, cleared by infectious disease.
[2018-05-28] MEDS: Enoxaparin Inj 40 MG/0.4 ML Syringe SQ SCH (21:07)
[2018-05-29] MEDS: Chlorhexidine Gluconate 2% 1 Pack (2 Cloths) TOPICAL SCH (04:22)
[2018-05-29] MEDS: Sod Chloride 0.9% Inj 1,000 ML IV.CONT SCH ×2 (06:06→10:25)
[2018-05-29 07:50] LABS: Baso % (Auto) 0.7 % (0.0-2.0); Eos # (Auto) 0.2 th/mm3 (0.0-0.4); Eos % (Auto) 2.7 % (0.0-4.0); Hematocrit 27.5 % (39.0-51.0); Hemoglobin 8.6 gm/dL (13.0-17.0); Lymph # (Auto) 2.2 th/mm3 (1.0-4.8); Lymph % (Auto) 32.2 % (9.0-44.0); Mean Corpuscular HGB Conc 31.2 % (32.0-36.0); Mean Corpuscular Hemoglobin 26.3 pg (27.0-34.0); Mean Corpuscular Volume 84.2 fL (80.0-100.0); Mean Platelet Volume 6.2 fL (7.0-11.0); Mono # (Auto) 0.4 th/mm3 (0.0-0.9); Mono % (Auto) 5.8 % (0.0-8.0); Neut % (Auto) 58.6 % (16.0-70.0); Platelet Count 414 th/mm3 (150-450); Red Blood Count 3.27 mil/mm3 (4.50-5.90); Red Cell Distribution Width 18.8 % (11.6-17.2); White Blood Count 6.8 th/mm3 (4.0-11.0)
[2018-05-29 08:12] LABS: Anion Gap 7 meq/L (5-15); Blood Urea Nitrogen 7 mg/dL (7-18); Chloride 109 meq/L (98-107); Glomerular Filtration Rate Greater Than 89 mL/min (>89); Glucose,Random 91 mg/dL (74-106); Potassium 4.2 meq/L (3.5-5.1); Sodium 143 meq/L (136-145)
[2018-05-29 08:25] VITALS: RESP 19
[2018-05-29] MEDS: Senna/Docusate Sodium 8.6/50 MG Tablet PO SCH (09:53)
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
--- NOTE | 2018-05-29 13:33 | ECHRPT ---
Indication: Sepsis Possible Endocarditis CONCLUSIONS There is possibly a small mobile echodensity is noted on the mitral valve consistent with artifact v s vegetation. Moderate mitral valve regurgitation. A mobile vegetation is seen on the tricuspid valve. There is moderate tricuspid regurgitation. The estimated pulmonary arterial pressure is 50 mmHg. There is a small pericardial effusion present. Normal left ventricular size and wall thickness. The left ventricular systolic function is normal with an estimated ejection fraction in the range of 55-60%. Estimated RAP 15mmHg. BP: / HR: Rhythm: MEASUREMENTS (Male / Female) Normal Values Technical Quality:Good 2D ECHO LV Diastolic Diameter PLAX 4.8 cm 4.2 - 5.9 / 3.9 - 5.3 cm LV Systolic Diameter PLAX 3.5 cm IVS Diastolic Thickness 1.0 cm 0.6 - 1.0 / 0.6 - 0.9 cm LVPW Diastolic Thickness 0.9 cm 0.6 - 1.0 / 0.6 - 0.9 cm LV Relative Wall Thickness 0.4 RV Internal Dim ED PLAX 2.8 cm LVOT Diameter 2.4 cm Aortic Root Diameter 2.9 cm LA Systolic Diameter LX 3.2 cm 3.0 - 4.0 / 2.7 - 3.8 cm M-MODE AV Cusp Separation MM 1.9 cm DOPPLER AV Peak Velocity 213.0 cm/s AV Peak Gradient 18.1 mmHg LVOT Peak Velocity 89.5 cm/s LVOT Peak Gradient 3.2 mmHg AV Area Cont Eq pk 1.9 cm Mitral E Point Velocity 130.0 cm/s Mitral A Point Velocity 96.3 cm/s Mitral E to A Ratio 1.3 LV E' Lateral Velocity 16.2 cm/s Mitral E to LV E' Lateral Ratio 8.0 LV E' Septal Velocity 16.9 cm/s Mitral E to LV E' Septal Ratio 7.7 TR Peak Velocity 315.0 cm/s TR Peak Gradient 39.7 mmHg Right Atrial Pressure 10.0 mmHg Pulmonary Artery Systolic Pressu 49.7 mmHg Right Ventricular Systolic Press 49.7 mmHg PV Peak Velocity 132.0 cm/s PV Peak Gradient 7.0 mmHg FINDINGS LEFT VENTRICLE Normal left ventricular size. Wall thickness is normal. The left ventricular systolic function is normal with an estimated ejection fraction in the range of 55-60%. RIGHT VENTRICLE Normal right ventricular size and systolic function. LEFT ATRIUM The left atrial size is normal. RIGHT ATRIUM The right atrial size is normal. ATRIAL SEPTUM Normal atrial septal thickness without atrial level shunting by limited color doppler interrogation. AORTA The aortic root and proximal ascending aorta are normal in size on limited imaging. MITRAL VALVE Mild thickening of the mitral valve leaflets. Possible small mobile echodensity is noted on the mitral valve consistent with artifact or vegetatio n. Moderate mitral valve regurgitation. AORTIC VALVE Trileaflet aortic valve. TRICUSPID VALVE There is moderate tricuspid regurgitation. The estimated pulmonary arterial pressure is 50 mmHg. Mobile vegetation seen on the tricuspid valve. PULMONARY VALVE No pulmonary valve regurgitation or stenosis. VESSELS The inferior vena cava is dilated. There is less than 50% respiratory change in dimension of the in ferior vena cava (abnormal). Estimated RAP 15mmHg. PERICARDIUM There is a small pericardial effusion present. Rhys Cardenas (Electronically Signed) Final Date:29 May 2018 13:32
[2018-05-29 13:52] VITALS: BP 131/85; PULSE 113; TEMP 98.6; O2SAT 98
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
== END 2018-05-29 16:33 | disposition home or self-care (01) ==
LOC: NEPE 16:25 → NEDA 18:50 → HIMC 21:15 → N05 05-27 16:29
PROVIDERS: ADMIT Hospitalist; ATTEND Hospitalist